=== PATIENT | female | born 1960 | race Caucasian/White ===

== ENCOUNTER 2021-02-27 08:56 | Outpatient (REF) | payer MEDICARE, MEDICAID, SELFPAY ==
--- NOTE | ~2021-02-27 | MM_ITS ---
EXAMINATION: MM SCREENING DIGITAL BREAST TOMOSYNTHESIS, BILATERAL CLINICAL INFORMATION: Screening. Asymptomatic. The lifetime risk of breast cancer based on the Tyrer-Cuzick Model is 4%. COMPARISON: Mammography: 02/22/2020, 02/18/2019, 02/05/2018, 02/03/2018 TECHNIQUE: Digital breast tomosynthesis is performed in both the craniocaudal and mediolateral oblique views along with computer-aided detection (CAD). Synthesized 2D images are generated from the tomosynthesis. FINDINGS: The breasts are heterogeneously dense, which may obscure small masses (ACR BI-RADS breast composition Category c). There are no significant masses, abnormal calcifications, or other abnormalities. Breast tissue composition borders on average fibroglandular. Parenchymal pattern is similar to prior studies. There is no developing density. No significant changes. MM/MM tomosynthesis screening BI IMPRESSION: No mammographic evidence of malignancy. ASSESSMENT: BI-RADS 1: Negative RECOMMENDATION: Routine annual mammography screening. This patient's information was entered into a reminder system with a target due date for their next mammogram.
== END 2021-02-27 08:57 | disposition home or self-care (01) ==
LOC: HO.MAMMO 08:56
PROVIDERS: Visit Provider Internal Medicine
DX: Z12.31 Encounter for screening mammogram for malignant neoplasm of breast (principal)
CPT/HCPCS: 77063; 77067

== ENCOUNTER 2022-03-05 08:07 | Outpatient (REF) | payer MEDICARE, MEDICAID, SELFPAY ==
--- NOTE | ~2022-03-05 | MM_ITS ---
EXAMINATION: MM SCREENING DIGITAL BREAST TOMOSYNTHESIS, BILATERAL CLINICAL INFORMATION: Screening. Asymptomatic. The lifetime risk of breast cancer based on the Tyrer-Cuzick Model is 3%. COMPARISON: Mammography: February 27, 2021 and studies dating back to December 09, 2013 TECHNIQUE: Digital breast tomosynthesis is performed in both the craniocaudal and mediolateral oblique views along with computer-aided detection (CAD). Synthesized 2D images are generated from the tomosynthesis. FINDINGS: The breasts are heterogeneously dense, which may obscure small masses (ACR BI-RADS breast composition Category c). There are no significant masses, abnormal calcifications, or other abnormalities. MM/MM tomosynthesis screening BI IMPRESSION: No mammographic evidence of malignancy. ASSESSMENT: BI-RADS 1: Negative RECOMMENDATION: Routine annual mammography screening. This patient's information was entered into a reminder system with a target due date for their next mammogram.
== END 2022-03-05 08:08 | disposition home or self-care (01) ==
LOC: HO.MAMMO 08:07
PROVIDERS: PCP Internal Medicine; Visit Provider Internal Medicine
DX: Z12.31 Encounter for screening mammogram for malignant neoplasm of breast (principal)
CPT/HCPCS: 77063; 77067

== ENCOUNTER 2023-03-08 08:07 | Outpatient (REF) | payer MEDICARE, MEDICAID, SELFPAY | END 2023-03-08 08:08 | disposition home or self-care (01) | LOC: HO.MAMMO 08:07 | PROVIDERS: PCP Internal Medicine; Visit Provider Internal Medicine | DX: Z12.31 Encounter for screening mammogram for malignant neoplasm of breast (principal) | CPT/HCPCS: 77063; 77067 ==

== ENCOUNTER → 2023-03-08 08:15 | Outpatient (BNV) | payer MEDICARE, MEDICAID, SELFPAY | PROVIDERS: PCP Internal Medicine; Visit Provider Radiology Diagnostic Radiology | DX: Z12.31 Encounter for screening mammogram for malignant neoplasm of breast (principal) | CPT/HCPCS: 77063; 77067 ==

== ENCOUNTER 2023-06-10 16:03 | Inpatient (IN) | payer MEDICARE, MEDICAID, SELFPAY ==
--- NOTE | ~2023-06-10 | CT_ITS ---
EXAMINATION: CT ABDOMEN AND PELVIS WITHOUT AND WITH CONTRAST CLINICAL INFORMATION: Right abdominal pain with nausea and vomiting. COMPARISON: None available. TECHNIQUE: Multidetector volumetric imaging was performed of the abdomen and pelvis before and after the IV administration of 100 mL of Omnipaque 350 intravenous contrast. Sagittal and coronal reformatted images were obtained on the technologist's workstation. This CT examination was performed using dose optimization techniques as appropriate, variously including the following: *Automated exposure control *Adjustment of mA and/or kV according to patient size (this includes techniques or standardized protocols for targeted exams where dose is matched to indication/reason for exam; i.e. extremities or head) *Use of iterative reconstruction technique DLP: 745 mGy-cm FINDINGS: LUNG BASES: The lung bases are clear. Heart size is normal. LIVER, GALLBLADDER, AND BILIARY TREE: The liver is normal in size, shape, and attenuation. There is 2.3 cm right hepatic cyst at the nano hepatis. There is minimal intrahepatic ductal prominence. The CBD is prominent measuring 1 cm. The gallbladder is distended with internal septation but no radiopaque calculi seen. No wall thickening. PANCREAS: Unremarkable SPLEEN: Unremarkable ADRENAL GLANDS: Unremarkable KIDNEYS AND URETERS: The kidneys are normal in size, shape, and attenuation. No hydronephrosis, hydroureter, or calculi seen. No perinephric stranding. BLADDER: Unremarkable GASTROINTESTINAL TRACT: There is diffuse colonic diverticulosis most prominent in the sigmoid region without mural thickening or pericolic fat stranding. Appendix is not visualized. The small bowel loops are unremarkable. The stomach is distended with recently ingested fluids No free air or free fluid. ABDOMINAL WALL: No significant hernia is appreciated. LYMPH NODES: Normal VASCULAR: Unremarkable PELVIC VISCERA: Unremarkable OSSEOUS STRUCTURES: No aggressive lytic or sclerotic process CT/CT abdomen pelvis wo/w IV con IMPRESSION: Significant constipation without acute intra-abdominal process. Distended gallbladder with septation but no radiopaque calculi. Mild intrahepatic and extrahepatic ductal dilatation. Hydropic gallbladder with septation but no radiopaque calculi Fleischner guidelines were followed.
--- NOTE | ~2023-06-10 | MR_ITS ---
EXAMINATION: MR ABDOMEN WITHOUT CONTRAST CLINICAL INFORMATION: Right-sided abdominal pain, nausea, vomiting, dilated common bile duct COMPARISON: CT scan of abdomen and pelvis on 06/10/2023, ultrasound of the abdomen on 06/10/2023. TECHNIQUE: Examination was performed in a high field strength MRI scanner. Multiplanar multisequence MR imaging of the abdomen was performed without IV contrast enhancement. MR cholangiopancreatography was performed with heavily T2 weighted sequences. 3-dimensional reconstruction of image data was performed. This was performed under concurrent direct supervision and monitoring by radiologist. Maximum intensity projection images were constructed. FINDINGS: MR CHOLANGIOPANCREATOGRAPHY: Evaluation is limited by respiratory motion blurring due to inability of the patient to hold her breath. Gallbladder is markedly distended, measuring 11.6 cm in length, with small crescent-shaped gravitating filling defects. Trace pericholecystic fluid is present. Cystic duct is unremarkable. Bilateral intra hepatic bile ducts are mildly dilated. Common bile duct is mildly dilated in the distal portion measuring up to 0.8 cm in diameter, with impingement in the distal portion by a prominent medial descending duodenal diverticulum, measuring 2.7 cm in AP diameter, 3.1 cm in width, 2.2 cm in vertical height. No common bile duct filling defect could be seen. Pancreatic duct is normal in size. LIVER: The liver shows no focal lesion. The calculated hepatic fat percentage is 1.9%, compatible with normal. 2 Cystic lesions are seen in the nano hepatis which could be connected to the common hepatic duct. The more lateral cystic lesion measures 2.1 cm in AP diameter, 1.8 cm in width, 2.2 cm in vertical height, series 4 image #9, series 3 image #9. The more medial cystic lesion measures 1.1 cm in AP diameter, 2.5 cm in width, 2.1 cm in vertical height, series 4 image #10, series 3 image #9. Trace pericholecystic fluid is present. PANCREAS: No focal pancreatic lesion with abnormal signal can be seen. SPLEEN: Spleen is moderately enlarged, measuring 15.6 cm in vertical length, without focal lesion. ADRENAL: Bilateral adrenal glands are normal in shape and size. KIDNEYS: Bilateral kidneys are normal in size without focal lesion. MR/MR MRCP IMPRESSION: 1. Hydrops gallbladder with small gravitating gallstones, visualized on ultrasound examination of abdomen on 06/10/2023. Pericholecystic fluid collection is present on the current examination. There is otherwise no diagnostic imaging signs for acute cholecystitis. Clinical correlation is recommended. 2. Evaluation with MR cholangiopancreatography is markedly limited by respiratory motion blurring. 2 cystic lesions are seen at the nano hepatis which appears to be diverticula connected to the common hepatic duct. 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 3. Mildly dilated distal common bile duct is seen, possibly due to impingement by medial descending duodenal diverticulum. 4. Moderate splenomegaly is present. 5. No focal pancreatic lesion is found.
--- NOTE | ~2023-06-10 | US_ITS ---
EXAMINATION: US ABDOMEN LIMITED CLINICAL INFORMATION: Right upper quadrant pain, nausea and vomiting. COMPARISON: CT abdomen and pelvis dated 06/10/2023; abdominal ultrasound dated 08/19/2008. TECHNIQUE: Real-time imaging of the right upper quadrant abdominal viscera. FINDINGS: PANCREAS: Normal. LIVER: The liver is normal in size. The liver contour is normal. Parenchymal echogenicity is normal. Within the right hepatic lobe, a 1.8 cm benign simple cyst is seen, for which no imaging follow-up is recommended. No focal hepatic solid lesion. There is no intrahepatic biliary duct dilatation seen. GALLBLADDER: Mildly hydropic, with a longitudinal span of 11.8 cm. There are small gallstones, without sludge, polyps, wall thickening or pericholecystic fluid. COMMON BILE DUCT: Mildly increased in caliber, measuring 0.8 cm in maximal diameter. RIGHT KIDNEY: Normal. No hydronephrosis. No renal calculi or focal parenchymal lesions. The kidney measures 9.5 cm in maximum dimension. FREE FLUID: None. US/US abdomen limited IMPRESSION: The gallbladder is mildly hydropic, and there is dilatation of the common bile duct. There is cholelithiasis. No definite choledocholith or pancreatic mass is seen on this examination or on the accompanying CT evaluation. Of note, the accompanying CT evaluation does show mild intrahepatic biliary duct dilatation. A recently passed gallstone is a diagnostic possibility. Consider further evaluation with abdominal MRI/MRCP or nuclear HIDA imaging, if clinically indicated.
--- NOTE | 2023-06-10 16:08 | ED.ABDPAIN ---
HPI - Abdominal Pain General Chief Complaint: Abdominal Pain Stated Complaint: severe abd pain Time Seen by Provider: 06/10/23 16:50 History of Present Illness HPI narrative: Patient is a 63-year-old female who presents emergency department for evaluation of abdominal pain. She reports approximately 5 hours prior to arrival she consumed a salad and a breakfast sandwich. Approximately 1 hour later she developed pain to the right upper abdomen with nausea and vomiting. She states that she has experienced similar episodes of pain after eating in the past which she has never had evaluation for, but has never experienced pain this severe nor associated vomiting. Pain radiates into the right back. She does endorse issues with constipation, she does not recall the date of her last bowel movement, she reports passing a very small amount of stool today after taking milk of magnesia. She denies fevers, chills, chest pain, shortness of breath, difficulty breathing, genitourinary symptoms, hematochezia, melena. Related Data Allergies Allergy/AdvReac Type Severity Reaction Status Date / Time thiopental [SODIUM PENTOTHAL] Allergy Severe ORAL HIVES Verified 06/10/23 16:41 Penicillins [PENICILLINS] Allergy Intermediate HIVES Verified 06/10/23 16:41 From DEMEROL Allergy Severe ORAL HIVES Uncoded 06/10/23 16:41 From VISTARIL Allergy Severe ORAL HIVES Uncoded 06/10/23 16:41 Review of Systems Review of Systems Yes all other systems are reviewed and are negative [facility] Past Medical History Attestation statement: The following information was validated with the patient. Source: old records reviewed Medical History RUQ abdominal pain Social History Alcohol intake: current Alcohol intake frequency: a few times a week Patient Tobacco Use Status: Never used Tobacco Smoked in Last 30 Days: No Use of substances other than those prescribed or required for medical reasons: No Advance Directives: No Advance Directives Information Provided: Yes Nutrition Risks: No Nutritional Risk Patient : No Physical Exam ED Vital Signs: Vital Signs - 24 hr 06/10/23 16:09 06/10/23 16:39 06/10/23 18:05 Temperature 97.8 F 97.3 F Pulse Rate 61 60 73 Respiratory Rate 18 20 16 Blood Pressure 136/103 H 128/75 121/53 L Pulse Oximetry 95 98 100 Oxygen Delivery Method Room Air Room Air Room Air 06/10/23 19:25 06/10/23 21:40 Temperature 97.9 F 98.0 F Pulse Rate 69 65 Respiratory Rate 16 18 Blood Pressure 129/61 132/66 Pulse Oximetry 98 98 Oxygen Delivery Method Room Air Room Air BMI result Body Mass Index 23.4 Appearance: Alert.?Oriented to person, place and time. No acute distress.?Normal affect. Eyes: Pupils equal, round and reactive to light.? ENT: Pharynx normal.?? Neck: Normal inspection.? Neck supple.?? CVS: Heart sounds normal. Normal heart rate and rhythm.? Pulses normal.?? Respiratory: No respiratory distress.? Lung sounds clear to auscultation bilaterally?? Abdomen: without rigidity or distension, she is however guarding, notable tenderness diffusely to the right side and epigastrium. No rebound tenderness. Positive CVA tenderness. Skin: Skin warm and dry.? Normal skin color.? Normal skin turgor.?? Extremities: No lower extremity edema.? No calf ttp? Neuro: Moves all extremities spontaneously. Sensation intact bilaterally. CN II-XII intact. No focal neuro deficits. Ambulates with normal steady gait. Course Course Course Narrative: This is a rapid medical exam. Deferred additional HPI, ROS, PE to primary provider. 63 yo female with history of asthma here with right upper abdomen pain/vomiting after eating a salad/breakfast sandwich. Will obtain labs, UA, EKG +hypertensive, quite uncomfortable Charge nurse notified patient needs bed Reevaluation(s) Reevaluation #1: CT concerning for gallbladder distension without radiopaque calculi, consulted general surgery Dr. Gordon, will obtain ultrasound for further imaging. CT also revealing significant constipation without evidence of obstruction, patient to receive MiraLax Reevaluation #2: Ultrasound reveals mildly hydropic gallbladder, dilation of the CBD, a cholelithiasis, mild intrahepatic biliary duct dilation. Reviewed this case with surgeon, Dr. Gordon, she continues to have pain and discomfort, accepted for admission to surgery service. Medical Decision Making Medical Decision Making MDM Narrative: Patient is a 63 old female with past medical history of asthma, GERD, hypothyroidism, depression presenting to emergency department for evaluation of abdominal pain as per HPI. At the time my initial examination she appears significantly uncomfortable. Abdominal examination is without rigidity or distension, she is however guarding, notable tenderness diffusely to the right side and epigastrium, and R CVAT. No rebound tenderness. No CVA tenderness. Will obtain CBC to evaluate for leukocytosis/ anemia, CMP and lipase to evaluate for abnormal electrolytes /abnormal renal function/ abnormal hepatic/biliary function, CT AP and Urinalysis. Differential Diagnosis Differential Diagnoses: The differential diagnosis associated with the presentation includes (Cholecystitis, cholelithiasis, pancreatitis, gastritis, PUD, ureteral calculi, hydronephrosis, appendicitis, ovarian cyst, pyelonephritis/UTI) Admission/Observation Consideration of admission/observation: Escalation of care including admission/observation considered (See narrative above and course narrative for further details) Consult Healthcare Provider Management of the patient was discussed with: [employer] Therapist (Dr. Gordon, general surgery) Lab Data MDM Lab Attestation statement: I reviewed the patient's lab results. CBC is without leukocytosis anemia. Elevated LFTs with T bili 1.6, AST/ALT 67/35, lipase within normal limits. High sensitive troponin not detectable. 06/10/23 16:30 06/10/23 16:30 Labs: Lab Results 06/10/23 06/10/23 Range/Units 16:30 19:47 WBC 10.3 (4.8-10.8) X10*3/uL RBC 4.88 (4.20-5.50) X10*6/uL Hgb 14.0 (12.0-16.0) g/dl Hct 42.0 (37.0-47.0) % MCV 86.1 (80.0-98.0) fL MCH 28.7 (27.0-33.0) pg MCHC 33.3 (31.0-35.0) g/dl RDW 14.1 (11.0-16.0) % Plt Count 173 (160-400) X10*3/uL MPV 10.4 (9.4-12.3) fL Immature Gran % (Auto) 0.5 H (0.0-0.4) % Neut % (Auto) 81.9 H (45-73) % Lymph % (Auto) 10.4 L (20-40) % [place] % (Auto) 6.9 (2-11) % Eos % (Auto) 0.0 (0-4) % Baso % (Auto) 0.3 (0-2) % Lymph # (Auto) 1.1 L (1.2-4.9) X10*3/uL [place] # (Auto) 0.7 (0.1-1.2) X10*3/uL Eos # (Auto) 0.0 (0.0-0.4) X10*3/uL Baso # (Auto) 0.0 (0.0-0.2) X10*3/uL Abs Immat Gran (auto) 0.05 H (0.00-0.03) X10*3/uL Absolute Neuts (auto) 8.4 H (2.0-8.3) x10*3/uL Absolute Nucleated RBC 0.000 (0.0-0.012) X10*3/uL Nucleated RBC % (auto) 0.0 (0.0-0.2) /100WBC Sodium 142 (135-145) mmol/L Potassium 3.9 (3.3-5.1) mmol/L Chloride 105 (96-108) mmol/L Carbon Dioxide 26 (22-29) mmol/L Anion Gap 15 (12-20) BUN 25 H (9-16) mg/dL Creatinine 0.79 (0.5-1.4) mg/dL Estim Creat Clear Calc 51.6 Estimated GFR > 60 Random Glucose 147 H (60-115) mg/dL Lactic Acid 1.1 (0.5-2.0) mmol/L Calcium 10.3 H (8.4-10.2) mg/dL Total Bilirubin 1.6 H (0.0-1.0) mg/dL Direct Bilirubin 0.7 H (0.0-0.5) mg/dL AST 67 H (5-31) U/L ALT 35 H (0-31) U/L Alkaline Phosphatase 109 (39-117) U/L Troponin I High Sens < 2.7 (<3.5-17.0) ng/L Total Protein 7.3 (6.5-8.0) g/dL Albumin 4.9 (3.5-5.0) g/dL Lipase 23 (8-78) U/L Urine Color Yellow Urine Appearance Clear Urine pH 8.0 (5.0-9.0) Ur Specific [place] >= 1.030 H (1.005-1.025) Urine Protein Trace (Neg-Trace) mg/dL Urine Glucose (UA) Negative (Negative) mg/dL Urine Ketones Negative (Negative) mg/dL Urine Blood Negative (Negative) Urine Nitrite Negative (Negative) Ur Leukocyte Esterase Negative (Negative) Independent Interpretation I performed an independent interpretation of an: EKG and CT Scan Interpretation: Rate:50 Rhythm:? Sinus bradycardia Normal P waves.? Normal CYRUS.?? Normal QRS complex.?? ST T wave :??No ST elevation, no ST depression, T-wave inversion V1-V3 qTC: 444 prior studies:? No prior available for review The study has been interpreted contemporaneously by me. Radiology Impression Discussion of test interpretation with radiology: I have reviewed the radiologist's reading. Radiologist Impression: CT/CT abdomen pelvis wo/w IV con IMPRESSION: Significant constipation without acute intra-abdominal process. Distended gallbladder with septation but no radiopaque calculi. Mild intrahepatic and extrahepatic ductal dilatation. Hydropic gallbladder with septation but no radiopaque calculi Independent Historian Clinical information obtained from an independent historian. History obtained from or confirmed by: Spouse (Present at bedside who confirms history) Medications Administered Generic Name Dose Route Start Last Admin Trade Name Freq PRN Reason Stop Dose Admin Sodium Chloride 1,000 mls @ 100 mls/hr 06/10/23 23:30 06/11/23 01:18 Ns IVCONT 100 mls/hr .Q10H GABRIELLE Administration Levofloxacin 500 mg in 100 mls @ 100 mls/hr 06/11/23 00:30 06/11/23 01:19 Levaquin IV Infused BEDTIME GABRIELLE Infusion Metronidazole 500 mg in 100 mls @ 100 mls/hr 06/11/23 00:00 06/11/23 01:18 Flagyl IV Infused Q8H GABRIELLE Infusion Sodium Chloride 3 ml 06/11/23 00:00 06/11/23 00:15 0.9 % Sodium Chloride Flush 3 Ml Syringe IVFLUSH 3 ml QSHIFT GABRIELLE Administration Discontinued Medications Generic Name Dose Route Start Last Admin Trade Name Freq PRN Reason Stop Dose Admin Sodium Chloride 1,000 mls @ 999 mls/hr 06/10/23 17:30 06/10/23 18:40 Ns IV 06/10/23 18:30 Infused .Q1H1M GABRIELLE Infusion Ceftriaxone Sodium 2 gm/ 50 mls @ 100 mls/hr 06/10/23 22:05 06/10/23 22:46 Sodium Chloride IV 06/10/23 22:34 Infused ONCE ONE Infusion Ketorolac Tromethamine 30 mg 06/10/23 17:18 06/10/23 17:35 Ketorolac Tromethamine 30 Mg/Ml Vial IVPUSH 06/10/23 17:19 30 mg ONCE ONE Administration Ondansetron HCl 4 mg 06/10/23 17:18 06/10/23 17:35 Ondansetron Hcl 4 Mg/2 Ml Vial IVPUSH 06/10/23 17:19 4 mg ONCE ONE Administration Polyethylene Glycol 17 gm 06/10/23 19:47 06/10/23 19:51 Polyethylene Glycol 3350 17 Gm Powd.Pack PO 06/10/23 19:48 17 gm ONCE ONE Administration Discharge Plan Discharge Clinical Impression: Right upper quadrant abdominal pain Patient Disposition: Admitted As Inpatient Interventions: Admission Worksheet (ED) Last Done: 06/11/23 01:09 Discharge Date/Time: 06/11/23 00:40
[2023-06-10 16:09] VITALS: BP 136/103; PULSE 61; RESP 18; TEMP 36.6; O2SAT 95; BMI 23.4
--- NOTE | 2023-06-10 16:10 | ECG_ITS ---
Test Reason : UPPER ABDOMINAL PAIN Blood Pressure : / mmHG Vent. Rate : 050 BPM Atrial Rate : 050 BPM P-R Int : 124 ms QRS Dur : 080 ms QT Int : 488 ms P-R-T Axes : 079 064 074 degrees QTc Int : 444 ms Sinus bradycardia RSR' or QR pattern in V1 suggests right ventricular conduction delay Nonspecific T wave abnormality Anterior leads Abnormal ECG When compared with ECG of 22-MAY-2010 12:13, Vent. rate has decreased BY 48 BPM Nonspecific T wave abnormality no longer evident in Inferior leads T wave inversion less evident in Anterior leads Referred By: Sara Mauro Electronically Signed By:PIETRO TOVAR MD
--- NOTE | 2023-06-10 16:22 | MHC.EDTECH ---
unable to obtain EKG in triage. patient in a lot of pain unable to sit still.
[2023-06-10 16:34] LABS: MANUAL DIFF FLAG NO
[2023-06-10 16:39] VITALS: BP 128/75; PULSE 60; RESP 20; TEMP 36.3; O2SAT 98
[2023-06-10 16:42] LABS: Basophils Percent Auto 0.3 % (0-2); Imm Gran Abs Auto 0.05 X10*3/uL (0.00-0.03); Imm Gran Pct Auto 0.5 % (0.0-0.4); Lymphocytes Absolute Auto 1.1 X10*3/uL (1.2-4.9); Lymphocytes Percent Auto 10.4 % (20-40); Mean Corpuscular HGB Conc 33.3 g/dl (31.0-35.0); Mean Corpuscular Hemoglobin 28.7 pg (27.0-33.0); Mean Corpuscular Volume 86.1 fL (80.0-98.0); Mean Platelet Volume 10.4 fL (9.4-12.3); Monocytes Absolute Auto 0.7 X10*3/uL (0.1-1.2); Monocytes Percent Auto 6.9 % (2-11); Neutrophils Absolute Auto 8.4 x10*3/uL (2.0-8.3); Neutrophils Percent Auto 81.9 % (45-73); Platelet Count 173 X10*3/uL (160-400); Red Blood Count 4.88 X10*6/uL (4.20-5.50); Red Cell Distribution Width 14.1 % (11.0-16.0); White Blood Count 10.3 X10*3/uL (4.8-10.8)
[2023-06-10 16:46] LABS: Lactic Acid 1.1 mmol/L (0.5-2.0)
[2023-06-10 16:51] LABS: Alanine Aminotransferase 35 U/L (0-31); Albumin Level 4.9 g/dL (3.5-5.0); Alkaline Phosphatase 109 U/L (39-117); Anion Gap 15 (12-20); Aspartate Amino Transferase 67 U/L (5-31); Bilirubin Direct 0.7 mg/dL (0.0-0.5); Bilirubin Total 1.6 mg/dL (0.0-1.0); Blood Urea Nitrogen 25 mg/dL (9-16); Calcium 10.3 mg/dL (8.4-10.2); Carbon Dioxide 26 mmol/L (22-29); Chloride 105 mmol/L (96-108); Creatinine Clr Calc Pharmacy 51.6; Estimated Glomerular Filt Rate > 60; Glucose Random 147 mg/dL (60-115); Lipase 23 U/L (8-78); Potassium 3.9 mmol/L (3.3-5.1); Sodium 142 mmol/L (135-145); Total Protein 7.3 g/dL (6.5-8.0)
[2023-06-10 17:00] LABS: Troponin-I High Sensitivity < 2.7 ng/L (<3.5-17.0)
[2023-06-10] MEDS: Ketorolac Tromethamine 30 MG/ML VIAL IVPUSH (17:35)
[2023-06-10] MEDS: ondansetron HCL 4 MG/2 ML VIAL IVPUSH (17:35)
[2023-06-10] MEDS: 0.9 % Sodium Chloride 1,000 ML 999 ML IV (17:36)
--- NOTE | 2023-06-10 17:36 | PC.NURSE ---
20gIV placed in the left AC w/o difficulty - medications administered per provider order. pt awaiting CT scan at this time. bedside for support. call milton placed within reach.
[2023-06-10 18:05] VITALS: BP 121/53; PULSE 73; RESP 16; O2SAT 100
--- NOTE | 2023-06-10 18:18 | PC.NURSE ---
pt to CT at this time.
--- NOTE | 2023-06-10 18:40 | PC.NURSE ---
pt returned from CT at this time. pt verbalizing pain level decreased post medication administration. pt no longer tearful/agitated. resting comfortable in no apparent distress. respirations remain even and unlabored.
[2023-06-10 19:25] VITALS: BP 129/61; PULSE 69; RESP 16; TEMP 36.6; O2SAT 98
--- NOTE | 2023-06-10 19:42 | MHC.EDTECH ---
This tech assumed care of patient at 1900, hourly rounds completed. Patient ambulated to bathroom with a steady gait,urine sample obtained and sent to lab.
--- NOTE | 2023-06-10 19:49 | MHC.EDTECH ---
Belonging list completed and copy placed in chart
[2023-06-10] MEDS: polyethylene glycoL 3350 17 GM POWD.PACK PO (19:51)
[2023-06-10 19:57] LABS: Appearance Urine Clear; Color Urine Yellow; Glucose Urine UA Negative (Negative); Leukocyte Esterase Urine Negative (Negative); Nitrite Urine Negative (Negative); Specific Gravity - Urine >= 1.030 (1.005-1.025); Urine Blood Negative (Negative); Urine Ketones Negative (Negative); Urine Protein Trace mg/dL (Neg-Trace)
--- NOTE | 2023-06-10 19:57 | PC.NURSE ---
medication administered per provider order.
[2023-06-10 21:40] VITALS: BP 132/66; PULSE 65; RESP 18; TEMP 36.7; O2SAT 98
--- NOTE | 2023-06-10 21:41 | MHC.EDTECH ---
Hourly rounds and vitals completed patient is resting comfortably at this time and call milton at bedside
[2023-06-10] MEDS: cefTRIAXone sodium 2 GM in 0.9 % Sodium Chloride 50 ML IV (22:16)
--- NOTE | 2023-06-10 22:18 | PC.NURSE ---
medication administered per provider order. resting comfortably in no apparent distress. pt still rating pain at a 5/10 at this time. respirations remain even and unlabored. call milton placed within reach.
--- NOTE | 2023-06-10 23:36 | PM.HPGS ---
History of Present Illness History of Present Illness Date of Service: 06/14/23 Chief complaint: RUQ pain Narrative: Ailyn Gill is a 63 year old female who was brought to the ED for sudden, acute and severe right sided abdominal pain starting about 3 hours prior to presentation. She also describes having nasuea and vomitting. She did respond well to IV pain meds although says she still had some pain. She stated that she may have had similar pain about a month ago but that was not nearly as severe as this episode. She says she has a history of hysterectomy in the distant past. Review of Systems Constitutional: Constitutional: Denies chills and Denies fever(s) Cardiovascular: Cardiovascular: Denies chest pain, Denies dyspnea and Denies dyspnea on exertion Respiratory: Respiratory: Denies cough, Denies dyspnea and Denies dyspnea on exertion Gastrointestinal: Gastrointestinal: Denies hematochezia and Denies change in bowel habits Genitourinary: Genitourinary: Denies hematuria Musculoskeletal: Musculoskeletal: Denies back pain and Denies limited range of motion Neurologic: Denies focal weakness and Denies convulsions Psychiatric: Psychiatric: Denies depression and Denies mood swings [facility]LY [facility], [facility] Past Medical History Medical History Thyroid disease Asthma RUQ abdominal pain Surgical History Surgical History (Updated 06/13/23 @ 07:39 by Nora Espinosa PA-C) History of hysterectomy Social History Social History Household Members: Other Housing: House Alcohol intake: current Alcohol intake frequency: holidays/special occasions only Comment: NOT INDICATED Patient Tobacco Use Status: Never used Tobacco service: No Meds Allergies Allergy/AdvReac Type Severity Reaction Status Date / Time thiopental [SODIUM PENTOTHAL] Allergy Severe ORAL HIVES Verified 06/10/23 16:41 Penicillins [PENICILLINS] Allergy Intermediate HIVES Verified 06/10/23 16:41 From DEMEROL Allergy Severe ORAL HIVES Uncoded 06/10/23 16:41 From VISTARIL Allergy Severe ORAL HIVES Uncoded 06/10/23 16:41 Active Medications: Current Medications Sodium Chloride (Ns) 1,000 mls @ 100 mls/hr IVCONT .Q10H GABRIELLE Levofloxacin (Levaquin) 500 mg in 100 mls @ 100 mls/hr IV Q24H GABRIELLE Metronidazole (Flagyl) 500 mg in 100 mls @ 100 mls/hr IV Q8H GABRIELLE Morphine Sulfate (Morphine Sulfate 4 Mg/Ml Cartridge) 4 mg IVPUSH Q4H PRN; Protocol PRN Reason: Pain, Severe (Pain Scale 7-10) Ondansetron HCl (Ondansetron Hcl 4 Mg/2 Ml Vial) 4 mg IVPUSH Q8H PRN PRN Reason: Nausea and Vomiting Sodium Chloride (0.9 % Sodium Chloride Flush 3 Ml Syringe) 3 ml IVFLUSH QSHIFT [facility] Home Medications Medication Instructions Recorded Confirmed Last Taken Type benralizumab 30 mg/mL subcutaneous 30 mg subcut Q8W 06/11/23 06/11/23 06/03/23 History syringe (Fasenra) cetirizine 10 mg tablet 10 mg PO DAILY 06/11/23 06/11/23 06/10/23 History cromolyn 4 % eye drops 1 drp ophthalmic (eye) QID 06/11/23 06/11/23 06/10/23 History cyanocobalamin (vitamin B-12) 1,000 mcg PO DAILY 06/11/23 06/11/23 06/10/23 History 1,000 mcg tablet diclofenac sodium 75 mg 75 mg PO BID 06/11/23 06/11/23 06/10/23 History tablet,delayed release fluticasone propionate 50 2 spray intranasal BID PRN Allergy 06/11/23 06/11/23 06/10/23 History mcg/actuation nasal Symptoms spray,suspension levothyroxine 75 mcg tablet 75 mcg PO DAILY 06/11/23 06/11/23 06/10/23 History montelukast 10 mg tablet 10 mg PO BEDTIME 06/11/23 06/11/23 06/10/23 History pantoprazole 40 mg tablet,delayed 40 mg PO DAILY 06/11/23 06/11/23 06/10/23 History release sertraline 100 mg tablet 150 mg PO DAILY 06/11/23 06/11/23 06/10/23 History Physical Exam Vital Signs: Vital Signs: Last Vital Signs Temp 98.0 F 06/10/23 21:40 Pulse 65 06/10/23 21:40 Resp 18 06/10/23 21:40 BP 132/66 06/10/23 21:40 Pulse Ox 98 06/10/23 21:40 O2 Del Method Room Air 06/10/23 21:40 BMI result Body Mass Index 23.4 Const: General: comfortable and no acute distress Orientation/consciousness: patient oriented x3 Neck: Neck: Yes no lymphadenopathy Resp: Auscultation: clear to auscultation bilaterally Cardio: Rhythm: regular rhythm GI: Other: tender on the RUQ, epigastric area Palpation (GI): Soft to palpation, Tenderness to palpation present (GI) and no guarding Neuro: General: patient oriented x3 Results Results Labs: Short CBC 06/10/23 Range/Units 16:30 WBC 10.3 (4.8-10.8) X10*3/uL Hgb 14.0 (12.0-16.0) g/dl Hct 42.0 (37.0-47.0) % Plt Count 173 (160-400) X10*3/uL BMP 06/10/23 16:30 Sodium 142 Potassium 3.9 Chloride 105 Carbon Dioxide 26 BUN 25 H Creatinine 0.79 Calcium 10.3 H Liver Function 06/10/23 Range/Units 16:30 Total Bilirubin 1.6 H (0.0-1.0) mg/dL Direct Bilirubin 0.7 H (0.0-0.5) mg/dL AST 67 H (5-31) U/L ALT 35 H (0-31) U/L Alkaline Phosphatase 109 (39-117) U/L Albumin 4.9 (3.5-5.0) g/dL Urine 06/10/23 Range/Units 19:47 Urine Color Yellow Urine Appearance Clear Urine pH 8.0 (5.0-9.0) Ur Specific [place] >= 1.030 H (1.005-1.025) Urine Protein Trace (Neg-Trace) mg/dL Urine Glucose (UA) Negative (Negative) mg/dL Assessment and Plan (1) RUQ abdominal pain: Status: Acute She has had sudden onset of right upper quadrant pain. I have reviewed her imaging studies and the gallbladder appears distended although with gallstones. Main differential is calculous cholecystitis. Her CBD and the hepatobiliary tree however appear dilated and her bilirubin is slightly elevated. I am going to order for an MRCP to rule out CBD stones. I will trend her LFTs as well. She has an otherwise benign exam although still has pain. There is no other acute intraabdominal process seen on her CT scan. She and her are comfortable with the plan. Quality Stroke Does the patient have a stroke diagnosis?: No VTE Prior VTE?: No VTE Risk Level:: Medical - moderate - high VTE Device Contraindication: N/A - Device Ordered VTE Drug Contraindication: N/A - Med Ordered Procedures Date of Service Date of Service: 06/14/23
[2023-06-11 00:03] VITALS: BP 117/69; PULSE 71; RESP 16; TEMP 36.7; O2SAT 99
--- NOTE | 2023-06-11 00:04 | MHC.EDTECH ---
Hourly rounds and vitals completed,patient resting comfortably at this time and warm blanket given,call milton at reach
[2023-06-11] MEDS: metroNIDAZOLE/NS 500 MG/100 ML PIGGYBACK 100 MG IV ×4 (00:15→23:05)
[2023-06-11] MEDS: 0.9 % Sodium Chloride Flush 3 ML SYRINGE IVFLUSH (00:15)
[2023-06-11] MEDS: levoFLOXacin/D5W 500 MG/100 ML PIGGYBACK 100 MG IV ×2 (00:16→20:26)
[2023-06-11] MEDS: 0.9 % Sodium Chloride 1,000 ML 100 ML IVCONT ×3 (01:18→22:59)
[2023-06-11 01:49] VITALS: BMI 23.4
[2023-06-11 03:19] VITALS: BP 127/68; PULSE 62; RESP 18; TEMP 36.2; O2SAT 96
[2023-06-11 08:00] VITALS: BP 127/63; PULSE 77; RESP 18; TEMP 36.2; O2SAT 95
--- NOTE | 2023-06-11 08:09 | PHA.MEDREC ---
Pharmacy Consult ? Medication Reconciliation Pharmacy has completed the medication reconciliation.
--- NOTE | 2023-06-11 08:28 | P.PNGS_ITS ---
Subjective Subjective Date of Service: 06/12/23 Interval history: still with some pain on the right upper quadrant but much better compared to last night Denies nausea or vomiting says that she was able to sleep no events reported Physical Exam 2 Vital Signs: Vital Signs: Last Vital Signs Temp 97.2 F 06/11/23 08:00 Pulse 77 06/11/23 08:00 Resp 18 06/11/23 08:00 BP 127/63 06/11/23 08:00 Pulse Ox 95 06/11/23 08:00 O2 Del Method Room Air 06/11/23 08:00 BMI result Body Mass Index 23.4 Const: General: comfortable and no acute distress Resp: Effort & Inspection: normal respiratory effort Cardio: Rate: regular rate GI: Other: some tenderness on the right upper quadrant and epigastric area Palpation (GI): Soft to palpation, not firm and no guarding Objective Data Active Medications Sodium Chloride (Ns) 1,000 mls @ 100 mls/hr IVCONT .Q10H COUNT INCLUDES THE [facility] Last Admin: 06/11/23 01:18 Dose: 100 mls/hr Documented By: MARNI Comments: new addmit Levofloxacin (Levaquin) 500 mg in 100 mls @ 100 mls/hr IV BEDTIME COUNT INCLUDES THE [facility] Last Infusion: 06/11/23 01:19 Dose: Infused Documented By: MARNI Metronidazole (Flagyl) 500 mg in 100 mls @ 100 mls/hr IV Q8H COUNT INCLUDES THE [facility] Last Admin: 06/11/23 07:36 Dose: 100 mls/hr Documented By: SUZANNE Morphine Sulfate (Morphine Sulfate 4 Mg/Ml Cartridge) 3 mg IVPUSH Q3H PRN; Protocol PRN Reason: Pain, Severe (Pain Scale 7-10) Ondansetron HCl (Ondansetron Hcl 4 Mg/2 Ml Vial) 4 mg IVPUSH Q8H PRN PRN Reason: Nausea and Vomiting Sodium Chloride (0.9 % Sodium Chloride Flush 3 Ml Syringe) 3 ml IVFLUSH QSHIFT COUNT INCLUDES THE [facility] Last Admin: 06/11/23 07:37 Dose: Not Given Documented By: SUZANNE Non-Admin Reason: IV Running Labs 06/11/23 08:42 06/11/23 08:42 Labs: Laboratory Results - last 24 hr 06/10/23 06/10/23 16:30 19:47 MCV 86.1 MCH 28.7 MCHC 33.3 RDW 14.1 Plt Count 173 MPV 10.4 Immature Gran % (Auto) 0.5 H Neut % (Auto) 81.9 H Lymph % (Auto) 10.4 L [place] % (Auto) 6.9 Eos % (Auto) 0.0 Baso % (Auto) 0.3 Lymph # (Auto) 1.1 L [place] # (Auto) 0.7 Eos # (Auto) 0.0 Baso # (Auto) 0.0 Abs Immat Gran (auto) 0.05 H Absolute Neuts (auto) 8.4 H Absolute Nucleated RBC 0.000 Nucleated RBC % (auto) 0.0 Anion Gap 15 Estim Creat Clear Calc 51.6 Estimated GFR > 60 Random Glucose 147 H Lactic Acid 1.1 Calcium 10.3 H Total Bilirubin 1.6 H Direct Bilirubin 0.7 H AST 67 H ALT 35 H Alkaline Phosphatase 109 Total Protein 7.3 Albumin 4.9 Lipase 23 Urine Color Yellow Urine Appearance Clear Urine pH 8.0 Ur Specific [place] >= 1.030 H Urine Protein Trace Urine Glucose (UA) Negative Urine Ketones Negative Urine Blood Negative Urine Nitrite Negative Ur Leukocyte Esterase Negative Procedures Date of Service Date of Service: 06/12/23 Progress Note: A&P Assessment and plan (1) RUQ abdominal pain: Status: Acute Assessment and Plan: no gallstones on imaging but with dilated hepatobiliary tree distended gallbladder but no significant inflammatory changes labs pending MRCP today continue antibiotics for now she looks well feels much better at this time although with some pain still Time Spent With Patient Time: Total time managing care of this patient today ____ minutes. Quality Stroke Does the patient have a stroke diagnosis?: No VTE Prior VTE?: No VTE Risk Level:: Medical - moderate - high VTE Device Contraindication: N/A - Device Ordered VTE Drug Contraindication: N/A - Med Ordered
[2023-06-11 08:48] LABS: MANUAL DIFF FLAG NO
[2023-06-11 08:57] LABS: Basophils Percent Auto 0.3 % (0-2); Hematocrit 36.2 % (37.0-47.0); Hemoglobin 11.8 g/dl (12.0-16.0); Imm Gran Abs Auto 0.01 X10*3/uL (0.00-0.03); Imm Gran Pct Auto 0.3 % (0.0-0.4); Lymphocytes Absolute Auto 0.4 X10*3/uL (1.2-4.9); Lymphocytes Percent Auto 11.7 % (20-40); Mean Corpuscular HGB Conc 32.6 g/dl (31.0-35.0); Mean Corpuscular Hemoglobin 28.2 pg (27.0-33.0); Mean Corpuscular Volume 86.6 fL (80.0-98.0); Mean Platelet Volume 9.8 fL (9.4-12.3); Monocytes Absolute Auto 0.3 X10*3/uL (0.1-1.2); Monocytes Percent Auto 9.5 % (2-11); Neutrophils Absolute Auto 2.5 x10*3/uL (2.0-8.3); Neutrophils Percent Auto 78.2 % (45-73); Platelet Count 102 X10*3/uL (160-400); Red Blood Count 4.18 X10*6/uL (4.20-5.50); Red Cell Distribution Width 14.2 % (11.0-16.0); White Blood Count 3.2 X10*3/uL (4.8-10.8)
[2023-06-11 09:52] LABS: Alanine Aminotransferase 749 U/L (0-31); Alkaline Phosphatase 224 U/L (39-117); Anion Gap 10 (12-20); Aspartate Amino Transferase 675 U/L (5-31); Bilirubin Direct 0.4 mg/dL (0.0-0.5); Bilirubin Total 1.1 mg/dL (0.0-1.0); Blood Urea Nitrogen 18 mg/dL (9-16); Calcium 9.1 mg/dL (8.4-10.2); Carbon Dioxide 23 mmol/L (22-29); Chloride 112 mmol/L (96-108); Creatinine Clr Calc Pharmacy 59.2; Estimated Glomerular Filt Rate > 60; Glucose Random 102 mg/dL (60-115); Potassium 4.2 mmol/L (3.3-5.1); Sodium 141 mmol/L (135-145); Total Protein 6.1 g/dL (6.5-8.0)
[2023-06-11] MEDS: Levothyroxine Sodium 75 MCG TABLET PO (11:32)
--- NOTE | 2023-06-11 13:03 | PC.NURSE ---
Requested that pt have a family member bring in her non formulary eye drops
--- NOTE | 2023-06-11 13:59 | MHC.CM.PN ---
pt lives with fiancee is independent has no servies has own ride home
--- NOTE | 2023-06-11 14:52 | PM.EVENT ---
Event Note Date of Service: 06/12/23 Event Note: States she feels better Still with right-sided pain but improved Asking if she can be discharged Abdomen remained soft with some tenderness Stable vital signs LFT show AST and ALT to be elevated, bilirubin down Possible parenchymal disease? Follow LFTs Continue antibiotics Rambo updated by phone Time Spent With Patient Time: Total time managing care of this patient today ____ minutes.
[2023-06-11 16:00] VITALS: BP 121/65; PULSE 71; RESP 18; TEMP 36.7; O2SAT 98
[2023-06-11] MEDS: Acetaminophen 325 MG TABLET 650 MG PO (16:35)
[2023-06-11] MEDS: ondansetron HCL 4 MG/2 ML VIAL IVPUSH (20:23)
[2023-06-11] MEDS: Montelukast Sodium 10 MG TABLET PO (20:25)
[2023-06-11] MEDS: Morphine Sulfate 4 MG/ML CARTRIDGE 3 MG IVPUSH (23:05)
[2023-06-11 23:46] VITALS: BP 110/57; PULSE 68; RESP 16; TEMP 36.9; O2SAT 95
[2023-06-12] VITALS (10 sets, daily range): BP systolic 130–153; BP diastolic 58–75; PULSE 69–81; RESP 12–20; TEMP 35.9–36.8; O2SAT 95–100; BMI 23.4
[2023-06-12] MEDS: Levothyroxine Sodium 75 MCG TABLET PO (06:24)
[2023-06-12] MEDS: 0.9 % Sodium Chloride 1,000 ML 100 ML IVCONT ×3 (06:26→23:51)
--- NOTE | 2023-06-12 07:33 | PM.EVENT ---
Event Note Date of Service: 06/13/23 Event Note: States she feels better but has some nausea still has some tenderness on the right upper quadrant no fever or chills abdomen soft and benign LFTs have dropped significantly MR CP shows gallstones, pericholecystic fluid, hydropic gallbladder no filling defect in the common bile duct likely to have passed a stone she does not want another episode - states that she this was severe she wants to proceed with cholecystectomy I reviewed with her the technique of laparoscopic cholecystectomy, possible open cholecystectomy I discussed the risks including but not limited to bleeding, infections, injury to other organs including bowel, liver, bile duct, retained stones, bile leak, as well as the benefits and alternatives Time Spent With Patient Time: Total time managing care of this patient today ____ minutes.
[2023-06-12 08:11] LABS: Alanine Aminotransferase 394 U/L (0-31); Albumin Level 3.9 g/dL (3.5-5.0); Alkaline Phosphatase 186 U/L (39-117); Aspartate Amino Transferase 165 U/L (5-31); Bilirubin Direct 0.2 mg/dL (0.0-0.5); Bilirubin Total 0.9 mg/dL (0.0-1.0)
--- NOTE | 2023-06-12 08:38 | HO.ANESPROP2 ---
[facility] Active Problems Active Problems: All Active Problems (Updated 06/11/23 @ 14:55 by Lanre Gordon MD) Thyroid disease (Acute) Asthma (Acute) RUQ abdominal pain (Acute) Past Medical History Medical History Thyroid disease Asthma RUQ abdominal pain Family History Family history of problems with anesthesia: No Surgical History Surgical History History of History of Problems with Anesthesia: No Social History Social History Household Members: Other Housing: House Alcohol intake: current Alcohol intake frequency: holidays/special occasions only Patient Tobacco Use Status: Never used Tobacco Smoked in Last 30 Days: No Use of substances other than those prescribed or required for medical reasons: No Currently Displaying Signs/Symptoms of Drug Intoxication Withdrawal: No Have you been hit, kicked, punched, or otherwise hurt by someone within the past year? If so, by whom?: No Do you feel safe in your current relationship?: Yes Is there a partner from a previous relationship who is making you feel unsafe now?: No Are you made to feel afraid or neglected: Yes Advance Directives: No Advance Directives Information Provided: Yes Do you have thoughts of harming others: None Do you have a plan to hurt others: No Plan Recently lost weight without trying: No Nutrition Risks: No Nutritional Risk Patient : No : No Poor oral hygiene: No service: No Meds Allergies Allergy/AdvReac Type Severity Reaction Status Date / Time thiopental [SODIUM PENTOTHAL] Allergy Severe ORAL HIVES Verified 06/10/23 16:41 Penicillins [PENICILLINS] Allergy Intermediate HIVES Verified 06/10/23 16:41 From DEMEROL Allergy Severe ORAL HIVES Uncoded 06/10/23 16:41 From VISTARIL Allergy Severe ORAL HIVES Uncoded 06/10/23 16:41 Active Medications: Current Medications Acetaminophen (Acetaminophen 325 Mg Tablet) 650 mg PO Q6H PRN PRN Reason: mild pain Last Admin: 06/11/23 16:35 Dose: 650 mg Fluticasone Propionate (Fluticasone Propionate Nasal 16 Gm [place]) 2 spray NOSTRIL-B BID PRN PRN Reason: Allergy Symptoms Sodium Chloride (Ns) 1,000 mls @ 100 mls/hr IVCONT .Q10H [facility] Last Admin: 06/12/23 06:26 Dose: 100 mls/hr Levofloxacin (Levaquin) 500 mg in 100 mls @ 100 mls/hr IV BEDTIME [facility] Last Infusion: 06/11/23 22:51 Dose: Infused Metronidazole (Flagyl) 500 mg in 100 mls @ 100 mls/hr IV Q8H [facility] Last Infusion: 06/12/23 00:16 Dose: Infused Levothyroxine Sodium (Levothyroxine Sodium 75 Mcg Tablet) 75 mcg PO DAILY@0600 [facility] Last Admin: 06/12/23 06:24 Dose: 75 mcg Montelukast Sodium (Montelukast Sodium 10 Mg Tablet) 10 mg PO BEDTIME [facility] Last Admin: 06/11/23 20:25 Dose: 10 mg Morphine Sulfate (Morphine Sulfate 4 Mg/Ml Cartridge) 3 mg IVPUSH Q3H PRN; Protocol PRN Reason: Pain, Severe (Pain Scale 7-10) Last Admin: 06/11/23 23:05 Dose: 3 mg Non-Formulary Medication (Cromolyn) 1 drop EYE-BOTH QID [facility] Omeprazole (Omeprazole 20 Mg Capsule.Dr) 20 mg PO DAILY@0630 [facility] Ondansetron HCl (Ondansetron Hcl 4 Mg/2 Ml Vial) 4 mg IVPUSH Q8H PRN PRN Reason: Nausea and Vomiting Last Admin: 06/11/23 20:23 Dose: 4 mg Sertraline HCl (Sertraline Hcl 50 Mg Tablet) 150 mg PO DAILY [facility] Sodium Chloride (0.9 % Sodium Chloride Flush 3 Ml Syringe) 3 ml IVFLUSH QSHIFT [facility] Last Admin: 06/11/23 23:56 Dose: Not Given Home Medications Medication Instructions Recorded Confirmed Last Taken Type benralizumab 30 mg/mL subcutaneous 30 mg subcut Q8W 06/11/23 06/11/23 06/03/23 History syringe (Fasenra) cetirizine 10 mg tablet 10 mg PO DAILY 06/11/23 06/11/23 06/10/23 History cromolyn 4 % eye drops 1 drp ophthalmic (eye) QID 06/11/23 06/11/23 06/10/23 History cyanocobalamin (vitamin B-12) 1,000 mcg PO DAILY 06/11/23 06/11/23 06/10/23 History 1,000 mcg tablet diclofenac sodium 75 mg 75 mg PO BID 06/11/23 06/11/23 06/10/23 History tablet,delayed release fluticasone propionate 50 2 spray intranasal BID PRN Allergy 06/11/23 06/11/23 06/10/23 History mcg/actuation nasal Symptoms spray,suspension levothyroxine 75 mcg tablet 75 mcg PO DAILY 06/11/23 06/11/23 06/10/23 History montelukast 10 mg tablet 10 mg PO BEDTIME 06/11/23 06/11/23 06/10/23 History pantoprazole 40 mg tablet,delayed 40 mg PO DAILY 06/11/23 06/11/23 06/10/23 History release sertraline 100 mg tablet 150 mg PO DAILY 06/11/23 06/11/23 06/10/23 History Exam Height,Weight and Vital Signs: Height 5 ft Weight 54.4 kg Last Vital Signs Temp 96.7 F L 06/12/23 08:03 Pulse 69 06/12/23 08:03 Resp 16 06/12/23 08:03 BP 131/66 06/12/23 08:03 Pulse Ox 96 06/12/23 08:03 O2 Del Method Room Air 06/12/23 08:03 Pertinent Lab Results Pertinent Lab Results: Laboratory Tests 06/10/23 06/10/23 06/11/23 16:30 19:47 08:42 WBC 10.3 3.2 L RBC 4.88 4.18 L Hgb 14.0 11.8 L Hct 42.0 36.2 L MCV 86.1 86.6 MCH 28.7 28.2 MCHC 33.3 32.6 RDW 14.1 14.2 Plt Count 173 102 L D MPV 10.4 9.8 Immature Gran % (Auto) 0.5 H 0.3 Neut % (Auto) 81.9 H 78.2 H Lymph % (Auto) 10.4 L 11.7 L [place] % (Auto) 6.9 9.5 Eos % (Auto) 0.0 0.0 Baso % (Auto) 0.3 0.3 Lymph # (Auto) 1.1 L 0.4 L [place] # (Auto) 0.7 0.3 Eos # (Auto) 0.0 0.0 Baso # (Auto) 0.0 0.0 Abs Immat Gran (auto) 0.05 H 0.01 Absolute Neuts (auto) 8.4 H 2.5 Absolute Nucleated RBC 0.000 0.000 Nucleated RBC % (auto) 0.0 0.0 Sodium 142 141 Potassium 3.9 4.2 Chloride 105 112 H Carbon Dioxide 26 23 Anion Gap 15 10 L BUN 25 H 18 H Creatinine 0.79 0.69 Estim Creat Clear Calc 51.6 59.2 Estimated GFR > 60 > 60 Random Glucose 147 H 102 Lactic Acid 1.1 Calcium 10.3 H 9.1 D Total Bilirubin 1.6 H 1.1 H Direct Bilirubin 0.7 H 0.4 AST 67 H 675 H ALT 35 H 749 H Alkaline Phosphatase 109 224 H Troponin I High Sens < 2.7 Total Protein 7.3 6.1 L Albumin 4.9 4.0 Lipase 23 Urine Color Yellow Urine Appearance Clear Urine pH 8.0 Ur Specific [place] >= 1.030 H Urine Protein Trace Urine Glucose (UA) Negative Urine Ketones Negative Urine Blood Negative Urine Nitrite Negative Ur Leukocyte Esterase Negative 06/12/23 07:49 WBC RBC Hgb Hct MCV MCH MCHC RDW Plt Count MPV Immature Gran % (Auto) Neut % (Auto) Lymph % (Auto) [place] % (Auto) Eos % (Auto) Baso % (Auto) Lymph # (Auto) [place] # (Auto) Eos # (Auto) Baso # (Auto) Abs Immat Gran (auto) Absolute Neuts (auto) Absolute Nucleated RBC Nucleated RBC % (auto) Sodium Potassium Chloride Carbon Dioxide Anion Gap BUN Creatinine Estim Creat Clear Calc Estimated GFR Random Glucose Lactic Acid Calcium Total Bilirubin 0.9 Direct Bilirubin 0.2 AST 165 H ALT 394 H Alkaline Phosphatase 186 H Troponin I High Sens Total Protein 6.0 L Albumin 3.9 Lipase Urine Color Urine Appearance Urine pH Ur Specific [place] Urine Protein Urine Glucose (UA) Urine Ketones Urine Blood Urine Nitrite Ur Leukocyte Esterase Airway Mallampati Class: II TM Dist: >3cm Neck ROM: Full Assessment and Plan Assessment Anesthesia Assessment: Anesthesia Plan Discussed and Chart Reviewed Final Anesthetic Review Family History of Problems with Anesthesia: No History of Problems with Anesthesia: No NPO: Yes ASA Class: II and Emergency Final Preanesthetic Review: No Changes in Pt Med Stat, Meds/Allgs Chart Reviewed, Consent Obtained/Reviewed and Anes Risks/Benef Reviewed Patient Risk: Intermediate Procedure Risk: Intermediate Anesthetic Plan Anesthetic Plan: GA Disposition: Standard PACU
[2023-06-12] MEDS: metroNIDAZOLE/NS 500 MG/100 ML PIGGYBACK 100 MG IV (08:52)
--- NOTE | 2023-06-12 11:31 | P.OP_ITS ---
Operative Note Operative Note Date of Service: 06/12/23 Narrative: Preop diagnosis: Acute calculus cholecystitis Postop diagnosis: The same Procedure: Laparoscopic cholecystectomy Surgeon: Lanre Gordon MD catering administrative assistant: BRETT Espinosa The patient is a 63-year-old female admitted because of severe right upper quadrant pain with abnormal LFTs. Her LFTs eventually trended down. Her imaging studies including or CP showed gallstones with pericholecystic fluid with no CBD stones.. Overall clinical picture suggested That the patient may have passed a stone to the common bile duct. She was copy lathe tender so clinically, she appeared to have acute cholecystitis as well. She understood the technique of laparoscopic cholecystectomy. She was aware of the risks, benefits, and alternatives. She was brought to the operating room. She was placed supine under general anesthesia via endotracheal tube. The abdomen was prepped and draped in the usual sterile fashion. A surgical time-out was done. The patient received Cefotan 2 g IV preoperatively I made a short incision on the skin in the supraumbilical margin using a blade 15. This was carried down with blunt dissection the full-thickness of the subcutaneous fat down to the fascia . The she was incised. The peritoneum was entered. Through this incision a Carley port was introduced. Pneumoperitoneum was introduced to a pressure of 15 mmHg. From here on the rest of the procedure was done under vision with a 10 mm laparoscope . With laparoscopic visualization, I proceeded to insert a 5/12 bili 40 the gastric area below the subcostal margin as well as two 5 mm ports on the subcostal margin along the anterior axillary line and the midclavicular line. Graspers were applied through these working ports. The patient was placed in a head-up and [id number] position. The gallbladder was seen and this was markedly distended and erythematous. We were able to apply grasper the fundus and this was used to retract the gallbladder cephalad. Another grasper was applied on the pouch of the gallbladder and this was used to retract the gallbladder laterally. At this point the gallbladder was be new tract in the cephalad and lateral fashion to put the area of the cystic duct on stretch. There was note of a liver cyst as well the inferior aspect of the liver. We avoided this during the dissection. I proceeded to use the [place] dissector to clear the neck of the gallbladder until I was able to identify the cystic duct. I carefully dissected the cystic duct until I was able to confirm its confluence with the neck of the gallbladder. By doing so, I was able to achieve a critical view of the hepatic cystic triangle. The cystic artery was clearly identified and there were no other structures seen in this area. With the confluence of the cystic duct with the neck of the gallbladder confirmed, I proceeded to apply clips on the cystic duct with 2 clips being applied distally. The cystic duct was then transected between clips with Endo scissors. I then applied clips on the cystic artery and this was transected between clips with Endo scissors. Two clips had been applied distally . With traction on the gallbladder away from the liver bed, I proceeded to then used the electrocautery spatula to divide across the hilum. I incised the peritoneum of the gallbladder wall and created a plane of dissection the gallbladder wall and the liver bed. I the gallbladder along this well-defined plane of dissection using a combination of blunt dissection with the tip of the spatula as well as electrocautery. I continued with this dissection all the fundus until the entire gallbladder is completely from the liver bed. The gallbladder was retrieved through an endobag through the umbilical incision . I reinserted all ports and re-insufflated. I examined all 4 quadrants and there was no other pathology or any evidence of any bowel injury seen. There were adhesions in the lower abdomen from her previous hysterectomy. There was no bile leak in the area of dissection. There was no bleeding . I therefore desufflated through the port sites. I removed all ports under vision with the laparoscope. a laparoscopic. The umbilical port was removed last. The fascia of the umbilical incision was closed with a [id number] Polysorb 0 stitch. Skin closure was achieved on all incisions using Monocryl 4- 0 subcuticular running sutures. The incisions were infiltrated with Marcaine 0.5% for postop analgesia. Dressings were applied. The procedure was completed. The patient tolerated procedure well. There were no immediate complications. Initial and final counts of sponges and instruments were correct. Estimated blood loss was about 75 cc The patient was extubated without difficulty and transferred to the recovery room with stable vital signs.
[2023-06-12] MEDS: ondansetron HCL 4 MG/2 ML VIAL IVPUSH (11:59)
[2023-06-12] MEDS: Morphine Sulfate 4 MG/ML CARTRIDGE 3 MG IVPUSH ×3 (13:05→23:50)
--- NOTE | 2023-06-12 13:36 | MHC.CM.PN ---
no dc date at this time plan remains home no servies
[2023-06-12] MEDS: oxyCODONE HCl Immed Release 5 MG TABLET PO ×2 (15:05→21:12)
--- NOTE | 2023-06-12 15:14 | PM.EVENT ---
Event Note Date of Service: 06/13/23 Event Note: Seen postop Appears to have adequate pain control Stable vital signs Abdomen soft Dressings dry Pain management I explained to her procedure done earlier I had updated her as well over the phone Hopefully she will be able to be discharged tomorrow Time Spent With Patient Time: Total time managing care of this patient today ____ minutes.
[2023-06-12] MEDS: Sertraline HCL 50 MG TABLET 150 MG PO (16:13)
[2023-06-12] MEDS: Montelukast Sodium 10 MG TABLET PO (21:12)
[2023-06-12] MEDS: 0.9 % Sodium Chloride Flush 3 ML SYRINGE IVFLUSH (21:12)
[2023-06-13] VITALS: BP 145/78; PULSE 68; RESP 18; TEMP 36.1; O2SAT 96
[2023-06-13] MEDS: Levothyroxine Sodium 75 MCG TABLET PO (04:58)
[2023-06-13] MEDS: oxyCODONE HCl Immed Release 5 MG TABLET PO ×2 (05:37→10:27)
[2023-06-13] MEDS: Omeprazole 20 MG CAPSULE.DR PO (05:37)
[2023-06-13 07:03] VITALS: BP 124/63; PULSE 68; RESP 20; TEMP 36.3; O2SAT 93
--- NOTE | 2023-06-13 07:37 | P.PNGS_ITS ---
Subjective Subjective Date of Service: 06/13/23 <Nora Espinosa PA-C - Last Filed: 06/13/23 07:40> 06/13/23 <Lanre Gordon MD - Last Filed: 06/13/23 08:54> Interval history: Feeling ok. C/o pain at umbilicus. Tolerating diet. OOB to bathroom. < Nora Espinosa PA-C - Last Filed: 06/13/23 07:40> Physical Exam 2 Vital Signs: Vital Signs: Last Vital Signs Temp 97.4 F 06/13/23 07:03 Pulse 68 06/13/23 07:03 Resp 20 06/13/23 07:03 BP 124/63 06/13/23 07:03 Pulse Ox 93 06/13/23 07:03 O2 Del Method Room Air 06/13/23 07:03 O2 Flow Rate 6 06/12/23 12:20 BMI result Body Mass Index 23.4 <Nora Espinosa PA-C - Last Filed: 06/13/23 07:40> Const: General: comfortable, no acute distress and alert <Nora Espinosa PA-C - Last Filed: 06/13/23 07:40> Orientation/consciousness: patient oriented x3 <Nora Espinosa PA-C - Last Filed: 06/13/23 07:40> Resp: Effort & Inspection: normal respiratory effort <Nora Espinosa PA-C - Last Filed: 06/13/23 07:40> GI: Inspection: No distended and Yes incision (dressings c/d/i) <Nora Espinosa PA-C - Last Filed: 06/13/23 07:40> Palpation (GI): Soft to palpation, Tenderness to palpation present (GI) (mild incisional), no guarding and not rigid <Nora Espinosa PA-C - Last Filed: 06/13/23 07:40> Percussion: Yes normal to percussion <Nora Espinosa PA-C - Last Filed: 06/13/23 07:40> Skin: General skin exam: no rashes or lesions noted <Nora Espinosa PA-C - Last Filed: 06/13/23 07:40> Neuro: General: patient oriented x3 and moves all extremities <Nora Espinosa PA-C - Last Filed: 06/13/23 07:40> Objective Data Active Medications Acetaminophen (Acetaminophen 325 Mg Tablet) 650 mg PO Q6H PRN PRN Reason: mild pain Last Admin: 06/11/23 16:35 Dose: 650 mg Documented By: SUZANNE Fluticasone Propionate (Fluticasone Propionate Nasal 16 Gm [place]) 2 spray NOSTRIL-B BID PRN PRN Reason: Allergy Symptoms Levothyroxine Sodium (Levothyroxine Sodium 75 Mcg Tablet) 75 mcg PO DAILY@0600 [facility] Last Admin: 06/13/23 04:58 Dose: 75 mcg Documented By: CONNER Montelukast Sodium (Montelukast Sodium 10 Mg Tablet) 10 mg PO BEDTIME [facility] Last Admin: 06/12/23 21:12 Dose: 10 mg Documented By: CONNER Morphine Sulfate (Morphine Sulfate 4 Mg/Ml Cartridge) 3 mg IVPUSH Q3H PRN; Protocol PRN Reason: Pain, Severe (Pain Scale 7-10) Last Admin: 06/12/23 23:50 Dose: 3 mg Documented By: CONNER Omeprazole (Omeprazole 20 Mg Capsule.Dr) 20 mg PO DAILY@0630 [facility] Last Admin: 06/13/23 05:37 Dose: 20 mg Documented By: CONNER Ondansetron HCl (Ondansetron Hcl 4 Mg/2 Ml Vial) 4 mg IVPUSH Q8H PRN PRN Reason: Nausea and Vomiting Last Admin: 06/11/23 20:23 Dose: 4 mg Documented By: MARNI Oxycodone HCl (Oxycodone Hcl Immed Release 5 Mg Tablet) 5 mg PO Q4H PRN PRN Reason: Pain, Moderate(Pain Scale 4-6) Last Admin: 06/13/23 05:37 Dose: 5 mg Documented By: CONNER Sertraline HCl (Sertraline Hcl 50 Mg Tablet) 150 mg PO DAILY [facility] Last Admin: 06/12/23 16:13 Dose: 150 mg Documented By: KEISHA Comments: pt was in OR did not receive AM dose Sodium Chloride (0.9 % Sodium Chloride Flush 3 Ml Syringe) 3 ml IVFLUSH QSHIFT [facility] Last Admin: 06/12/23 21:12 Dose: 3 ml Documented By: CONNER <Nora Espinosa PA-C - Last Filed: 06/13/23 07:40> Labs CBC & Chem 7: 06/11/23 08:42 06/11/23 08:42 <Nora Espinosa PA-C - Last Filed: 06/13/23 07:40> Labs: Laboratory Results - last 24 hr 06/12/23 07:49 Total Bilirubin 0.9 Direct Bilirubin 0.2 AST 165 H ALT 394 H Alkaline Phosphatase 186 H Total Protein 6.0 L Albumin 3.9 Blood Type O Positive Antibody Screen NEGATIVE <Nora Espinosa PA-C - Last Filed: 06/13/23 07:40> Procedures Date of Service Date of Service: 06/13/23 <Nroa Espinosa PA-C - Last Filed: 06/13/23 07:40> 06/13/23 <Lanre Gordon MD - Last Filed: 06/13/23 08:54> Progress Note: A&P Assessment and plan (1) S/P laparoscopic cholecystectomy: Status: Acute <Nora Espinosa PA-C - Last Filed: 06/13/23 07:40> Assessment and Plan: States she wants to go admits to some pain and nausea just now Abdomen soft incisions clean and dry Good vital signs will reassess later on today for possible discharge seen and examined independently <Lanre Gordon MD - Last Filed: 06/13/23 08:54> Assessment and Plan: POD #1 s/p lap aron. Doing well post op. Abd exam benign with appropriate post op tenderness, dressings c/d/i. Will reassess for likely to dc home today. Patient comfortable with plan. <Nora Espinosa PA-C - Last Filed: 06/13/23 07:40> Time Spent With Patient Time: Total time managing care of this patient today ____ minutes. <Nora Espinosa PA-C - Last Filed: 06/13/23 07:40> Quality Stroke Does the patient have a stroke diagnosis?: No <RAN Woods Last Filed: 06/13/23 07:40> VTE Prior VTE?: No <Nora Espinosa PA-C - Last Filed: 06/13/23 07:40> VTE Risk Level:: Medical - moderate - high <Nora Espinosa PA-C - Last Filed: 06/13/23 07:40> VTE Device Contraindication: N/A - Device Ordered <Nora Espinosa PA-C - Last Filed: 06/13/23 07:40> VTE Drug Contraindication: N/A - Med Ordered <Nora Espinosa PA-C - Last Filed: 06/13/23 07:40>
[2023-06-13] MEDS: ondansetron HCL 4 MG/2 ML VIAL IVPUSH (09:04)
[2023-06-13] MEDS: Sertraline HCL 50 MG TABLET 150 MG PO (09:05)
[2023-06-13] MEDS: 0.9 % Sodium Chloride Flush 3 ML SYRINGE IVFLUSH (09:06)
[2023-06-13] MEDS: Acetaminophen 325 MG TABLET 650 MG PO (10:26)
--- NOTE | 2023-06-13 13:24 | PM.EVENT ---
Event Note Date of Service: 06/13/23 Event Note: feels well has been ambulating tolerating diet well abd soft stable VS she says she is ready to go home now ffup instructions reinforced Time Spent With Patient Time: Total time managing care of this patient today ____ minutes.
--- NOTE | 2023-06-13 13:57 | HO.POSTANES ---
Post Anesthesia Evaluation Post Anesthesia Evaluation Date of Service: 06/13/23 Vital Signs: Vital Signs Temp Pulse Resp BP Pulse Ox O2 Del Method 06/13/23 07:03 97.4 F 68 20 124/63 93 Room Air Anesthesia: General Endotracheal-GETA Mental Status: Awake Pain Control: Satisfactory Nausea/Vomiting: None Hydration: Adequate Anesthesia-Related Issues: No Anes. Related Issues
--- NOTE | 2023-06-19 14:08 | PM.DS ---
DS: Providers Provider Date of Service: 06/13/23 Date of admission: 06/10/23 23:23 Primary care physician: Robert Thakur PA-C DS: Diagnosis Discharge Diagnosis (1) RUQ abdominal pain: Status: Acute (2) Acute cholecystitis due to biliary calculus: Status: Acute (3) Abnormal LFTs: Status: Acute DS: Summary Hospital Course Hospital Course: The patient was a 63-year-old female admitted because of epigastric pain with scan and ultrasound findings suggestive of cholecystitis. She had elevated LFTs as well including bilirubin. I ordered for an MRCP which did not reveal any filling defects in the common bile duct although there was some mild dilatation of the hepatic ducts. Her LFTs trended down so she underwent for laparoscopic cholecystectomy on 06/12/2023. She tolerated procedure well. She was started on clear liquids and this was advanced on the same day. She continued to tolerate this and had good pain control. Was therefore discharged on June 13, 2023. At the time of her discharge, she was tolerating regular diet. She had good pain control. She had stable vital signs. Time Attestation Discharge coordination time: Less than 30 minutes Quality: Safe Use of Opioids Does Pt have an Active Cancer Diagnosis on the Problem List?: No Quality: Stroke Does the patient have a stroke diagnosis?: No Physical Exam Vital Signs: Vital Signs: Last Vital Signs Temp 97.4 F 06/13/23 07:03 Pulse 68 06/13/23 07:03 Resp 20 06/13/23 07:03 BP 124/63 06/13/23 07:03 Pulse Ox 93 06/13/23 07:03 O2 Del Method Room Air 06/13/23 07:03 O2 Flow Rate 6 06/12/23 12:20 BMI result Body Mass Index 23.4 Const: General: comfortable and no acute distress Orientation/consciousness: patient oriented x3 Neck: Neck: Yes no lymphadenopathy Resp: Auscultation: clear to auscultation bilaterally Cardio: Rhythm: regular rhythm GI: Other: Incisions clean and dry Palpation (GI): Soft to palpation, nontender and no guarding Neuro: General: patient oriented x3 DS: Data Data Completed and Pending Completed studies during hospitalization [Text1]: Pending at discharge 06/12/23 11:23 Surgical [PTH] Routine Laboratory Results WBC 3.2 X10*3/uL (4.8-10.8) L 06/11/23 08:42 RBC 4.18 X10*6/uL (4.20-5.50) L 06/11/23 08:42 Hgb 11.8 g/dl (12.0-16.0) L 06/11/23 08:42 Hct 36.2 % (37.0-47.0) L 06/11/23 08:42 MCV 86.6 fL (80.0-98.0) 06/11/23 08:42 MCH 28.2 pg (27.0-33.0) 06/11/23 08:42 MCHC 32.6 g/dl (31.0-35.0) 06/11/23 08:42 RDW 14.2 % (11.0-16.0) 06/11/23 08:42 Plt Count 102 X10*3/uL (160-400) L D 06/11/23 08:42 MPV 9.8 fL (9.4-12.3) 06/11/23 08:42 Immature Gran % (Auto) 0.3 % (0.0-0.4) 06/11/23 08:42 Neut % (Auto) 78.2 % (45-73) H 06/11/23 08:42 Lymph % (Auto) 11.7 % (20-40) L 06/11/23 08:42 [place] % (Auto) 9.5 % (2-11) 06/11/23 08:42 Eos % (Auto) 0.0 % (0-4) 06/11/23 08:42 Baso % (Auto) 0.3 % (0-2) 06/11/23 08:42 Lymph # (Auto) 0.4 X10*3/uL (1.2-4.9) L 06/11/23 08:42 [place] # (Auto) 0.3 X10*3/uL (0.1-1.2) 06/11/23 08:42 Eos # (Auto) 0.0 X10*3/uL (0.0-0.4) 06/11/23 08:42 Baso # (Auto) 0.0 X10*3/uL (0.0-0.2) 06/11/23 08:42 Abs Immat Gran (auto) 0.01 X10*3/uL (0.00-0.03) 06/11/23 08:42 Absolute Neuts (auto) 2.5 x10*3/uL (2.0-8.3) 06/11/23 08:42 Absolute Nucleated RBC 0.000 X10*3/uL (0.0-0.012) 06/11/23 08:42 Nucleated RBC % (auto) 0.0 /100WBC (0.0-0.2) 06/11/23 08:42 Sodium 141 mmol/L (135-145) 06/11/23 08:42 Potassium 4.2 mmol/L (3.3-5.1) 06/11/23 08:42 Chloride 112 mmol/L (96-108) H 06/11/23 08:42 Carbon Dioxide 23 mmol/L (22-29) 06/11/23 08:42 Anion Gap 10 (12-20) L 06/11/23 08:42 BUN 18 mg/dL (9-16) H 06/11/23 08:42 Creatinine 0.69 mg/dL (0.5-1.4) 06/11/23 08:42 Estim Creat Clear Calc 59.2 06/11/23 08:42 Estimated GFR > 60 06/11/23 08:42 Random Glucose 102 mg/dL (60-115) 06/11/23 08:42 Lactic Acid 1.1 mmol/L (0.5-2.0) 06/10/23 16:30 Calcium 9.1 mg/dL (8.4-10.2) D 06/11/23 08:42 Total Bilirubin 0.9 mg/dL (0.0-1.0) 06/12/23 07:49 Direct Bilirubin 0.2 mg/dL (0.0-0.5) 06/12/23 07:49 AST 165 U/L (5-31) H 06/12/23 07:49 ALT 394 U/L (0-31) H 06/12/23 07:49 Alkaline Phosphatase 186 U/L (39-117) H 06/12/23 07:49 Troponin I High Sens < 2.7 ng/L (<3.5-17.0) 06/10/23 16:30 Total Protein 6.0 g/dL (6.5-8.0) L 06/12/23 07:49 Albumin 3.9 g/dL (3.5-5.0) 06/12/23 07:49 Lipase 23 U/L (8-78) 06/10/23 16:30 Urine Color Yellow 06/10/23 19:47 Urine Appearance Clear 06/10/23 19:47 Urine pH 8.0 (5.0-9.0) 06/10/23 19:47 Ur Specific [place] >= 1.030 (1.005-1.025) H 06/10/23 19:47 Urine Protein Trace mg/dL (Neg-Trace) 06/10/23 19:47 Urine Glucose (UA) Negative mg/dL (Negative) 06/10/23 19:47 Urine Ketones Negative mg/dL (Negative) 06/10/23 19:47 Urine Blood Negative (Negative) 06/10/23 19:47 Urine Nitrite Negative (Negative) 06/10/23 19:47 Ur Leukocyte Esterase Negative (Negative) 06/10/23 19:47 Blood Type O Positive 06/12/23 07:49 Antibody Screen NEGATIVE 06/12/23 07:49 Impressions Abdomen/Pelvis CT 06/10/23 18:29 IMPRESSION: Significant constipation without acute intra-abdominal process. Distended gallbladder with septation but no radiopaque calculi. Mild intrahepatic and extrahepatic ductal dilatation. Hydropic gallbladder with septation but no radiopaque calculi Fleischner guidelines were followed. Abdomen Ultrasound 06/10/23 20:11 IMPRESSION: The gallbladder is mildly hydropic, and there is dilatation of the common bile duct. There is cholelithiasis. No definite choledocholith or pancreatic mass is seen on this examination or on the accompanying CT evaluation. Of note, the accompanying CT evaluation does show mild intrahepatic biliary duct dilatation. A recently passed gallstone is a diagnostic possibility. Consider further evaluation with abdominal MRI/MRCP or nuclear HIDA imaging, if clinically indicated. Cholangiopancreatography MRI 06/11/23 08:26 IMPRESSION: 1. Hydrops gallbladder with small gravitating gallstones, visualized on ultrasound examination of abdomen on 06/10/2023. Pericholecystic fluid collection is present on the current examination. There is otherwise no diagnostic imaging signs for acute cholecystitis. Clinical correlation is recommended. 2. Evaluation with MR cholangiopancreatography is markedly limited by respiratory motion blurring. 2 cystic lesions are seen at the nano hepatis which appears to be diverticula connected to the common hepatic duct. 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 3. Mildly dilated distal common bile duct is seen, possibly due to impingement by medial descending duodenal diverticulum. 4. Moderate splenomegaly is present. 5. No focal pancreatic lesion is found. Discharge Plan Discharge Anticipated Discharge Date/Time: 06/13/23 11:42 Patient Disposition: Home, Self-Care Discharge Diagnosis: acute cholecystitis s/p laparoscopic cholecystectomy Referrals: Lanre Gordon MD [Physician] - 2 Weeks Robert Thakur PA-C [Primary Care Provider] - 1 Week Discharge Medications: New oxycodone 5 mg tablet 5 mg PO Q4H PRN (Reason: pain (scale score 7-10)) Qty: 24 0RF Rx Instructions: Partial Fill upon patient request. Continued cetirizine 10 mg tablet 10 mg PO DAILY sertraline 100 mg tablet 150 mg PO DAILY cromolyn 4 % drops 1 drp ophthalmic (eye) QID levothyroxine 75 mcg tablet 75 mcg PO DAILY pantoprazole 40 mg tablet,delayed release (DR/EC) 40 mg PO DAILY diclofenac sodium 75 mg tablet,delayed release (DR/EC) 75 mg PO BID montelukast 10 mg tablet 10 mg PO BEDTIME fluticasone propionate 50 mcg/actuation spray,suspension 2 spray intranasal BID PRN (Reason: Allergy Symptoms) Fasenra 30 mg/mL syringe 30 mg subcut Q8W cyanocobalamin (vitamin B-12) 1,000 mcg Tablet 1,000 mcg PO DAILY Discharge Orders: Discharge Order (Routine); Ordered 06/13/23 Ordered By: Lanre Gordon Diet: Low fat, low cholesterol Activity on Discharge: No heavy lifting Stand Alone Forms: Patient Portal Discharge page Activity Restrictions/Additional Instructions: If the incision area is tender, you may apply an ice pack for short intervals (No more than 20 minutes on, followed by at least 20 minutes off). Do not apply heat. Do not use creams, lotions, or topical antibiotics. These can cause infection or allergic reaction. Ok to shower 24 hours after your surgery. Remove bandaids in 2 days and replace. You have steri strips (small white cloth strips) covering your incision- these will fall off ~1 week. Follow up in office with Dr. Gordon in 2 weeks. ([phone]) No heavy lifting (>10-20lbs) or strenuous activity! Call Your Doctor If: -Your temperature exceeds 101.5? F -You experience excessive pain or swelling -You have an unexpected reaction to medication -You have excessive bleeding -You experience continued vomiting/nausea -Your incision begins to separate -Your incision shows signs of infection such as increased redness, swelling, excessive pain, drainage (light blood or clear fluid is normal) or heat Care Plan Goals: Return to baseline health and resume normal activities following recovery period. Health Concerns: acute cholecystitis transaminitis asthma Plan of Treatment: s/p laparoscopic cholecystectomy f/u in office in 2 weeks Assessment: doing well post op Discharge Date/Time: 06/13/23 14:03
== END 2023-06-13 14:03 | disposition home or self-care (01) | DRG 419 ==
LOC: HO.ED 23:35 → HO.EDOVER 23:38 → HO.S3 06-11 00:18
PROVIDERS: Nurse Practitioner Family; Admitting Provider Surgery; Emergency Provider Emergency Medicine; PCP Physician Assistant; Visit Provider Surgery
PROC: 0FT44ZZ Resection of Gallbladder, Percutaneous Endoscopic Approach (ICD-10-PCS; CPT 47562; principal; 2023-06-12 09:10)
DX: K80.00 Calculus of gallbladder with acute cholecystitis without obstruction (principal); Z79.899 Other long term (current) drug therapy
CPT/HCPCS: 36415; 74178; 74181; 76705; 80048; 80053; 80076; 81003; 82248; 83605; 83690; 84484; 85025; 86850; 86900; 86901; 88304; 93005; 99285; J0665; J0696; J1100; J1836; J1885; J1956; J2270; J2405; J2704; J3010

== ENCOUNTER → 2023-06-10 23:23 | Outpatient (BNV) | payer MEDICARE, MEDICAID, SELFPAY | PROVIDERS: Admitting Provider Surgery; Emergency Provider Emergency Medicine; PCP Physician Assistant; Visit Provider Surgery | DX: R10.11 Right upper quadrant pain (principal); K80.00 Calculus of gallbladder with acute cholecystitis without obstruction; R79.89 Other specified abnormal findings of blood chemistry | CPT/HCPCS: 47562; 99024; 99212; 99222; 99232; 99499 ==

== ENCOUNTER 2023-06-26 11:45 | Outpatient (AMB) | payer MEDICARE, MEDICAID, SELFPAY ==
--- NOTE | 2023-06-26 11:48 | MHC.OFFVIS ---
Intake Intake Visit Reasons: s/p lap cholecystectomy Intake Note: This patient presents for a post-op assessment status post laparoscopic cholecystectomy. 06/12/2023 Patient c/o; reports no complaints pertaining to surgery. Assurance Specialist Required: No Accompanied by: Self / Same As Patient Allergies thiopental [SODIUM PENTOTHAL] Allergy (Severe, Verified 06/26/23 11:52) ORAL HIVES Penicillins [PENICILLINS] Allergy (Intermediate, Verified 06/26/23 11:52) HIVES From DEMEROL Allergy (Severe, Uncoded 06/26/23 11:52) ORAL HIVES From VISTARIL Allergy (Severe, Uncoded 06/26/23 11:52) ORAL HIVES HPI s/p lap cholecystectomy HPI Details 63-year-old female here for follow-up after cholecystectomy. She underwent laparoscopic cholecystectomy as an inpatient last 06/12/2023 for acute cholecystitis. She was admitted on June 10 but had elevated bilirubin at that time. An MRCP done did not reveal any CBD stones She was discharged on postop day 1 on June 13. She continues to do well. She denies any significant complaints. [facility] Medical History Abnormal LFTs Acute cholecystitis due to biliary calculus Thyroid disease Asthma RUQ abdominal pain Surgical History History of laparoscopic cholecystectomy (~06/12/23) History of hysterectomy Social History Household Members: Other Housing: House Alcohol intake: current Alcohol intake frequency: holidays/special occasions only Comment: NOT INDICATED Patient Tobacco Use Status: Never used Tobacco service: No Review of Systems Const Denies chills and Denies fever(s) Card Denies chest pain, Denies dyspnea and Denies dyspnea on exertion Resp Denies cough, Denies dyspnea and Denies dyspnea on exertion GI Denies hematochezia and Denies change in bowel habits Denies hematuria Musc Denies back pain and Denies limited range of motion Neuro Denies focal weakness and Denies convulsions Psych Denies depression and Denies mood swings Physical Exam Const General: comfortable and no acute distress Eyes Sclerae: sclerae normal GI Other: All incisions are well healed Palpation (GI): Soft to palpation, not firm and nontender Assessment & Plan Assessment & Plan (1) Acute cholecystitis due to biliary calculus: Code(s): K80.00 - Calculus of gallbladder with acute cholecystitis without obstruction Plan: Status post laparoscopic cholecystectomy. She is doing well postoperatively. All incisions are well healed. She has no GI complaints. I advised her to avoid any lifting more than 20 lb for about 2 more weeks. She can follow up on a p.r.n. basis otherwise. Coding Level of Care Code Global (33180) Diagnoses Acute cholecystitis due to biliary calculus K80.00
== END 2023-06-26 12:40 | disposition home or self-care (01) ==
PROVIDERS: PCP Physician Assistant; Visit Provider Surgery
DX: K80.00 Calculus of gallbladder with acute cholecystitis without obstruction (principal)
CPT/HCPCS: 99024

== ENCOUNTER → 2023-06-26 11:45 | Outpatient (BNVA) | payer MEDICARE, MEDICAID, SELFPAY | PROVIDERS: PCP Physician Assistant; Visit Provider Surgery | DX: K80.00 Calculus of gallbladder with acute cholecystitis without obstruction (principal) | CPT/HCPCS: 99212 ==

== ENCOUNTER 2024-03-27 10:08 | Outpatient (REF) | payer MEDICARE, SELFPAY ==
--- NOTE | ~2024-03-27 | MM_ITS ---
EXAMINATION: MM SCREENING DIGITAL BREAST TOMOSYNTHESIS, BILATERAL CLINICAL INFORMATION: Screening. Asymptomatic. COMPARISON: Mammography: Comparison is made with available priors TECHNIQUE: Digital breast mammography with tomosynthesis is performed in both the craniocaudal and mediolateral oblique views along with computer-aided detection (CAD). FINDINGS: The breasts are heterogeneously dense, which may obscure small masses (ACR BI-RADS breast composition Category c). There are no significant masses, abnormal calcifications, or other abnormalities. MM/MM tomosynthesis screening BI IMPRESSION: No mammographic evidence of malignancy. ASSESSMENT: BI-RADS BI-RADS 1 - Negative RECOMMENDATION: Routine annual mammography screening. 1 year F/U This examination should not preclude the clinical evaluation of a suspicious palpable abnormality. This patient's information was entered into a reminder system with a target due date for their next mammogram. Electronically signed by: Renetta Vega DO 04/09/2024 08:07 PM EDT
== END 2024-03-27 10:09 | disposition home or self-care (01) ==
LOC: HO.MAMMO 10:08
PROVIDERS: PCP Internal Medicine; Visit Provider Internal Medicine
DX: Z12.31 Encounter for screening mammogram for malignant neoplasm of breast (principal)
CPT/HCPCS: 77063; 77067

== ENCOUNTER → 2024-03-27 10:15 | Outpatient (BNV) | payer MEDICARE, SELFPAY | PROVIDERS: PCP Internal Medicine; Visit Provider Internal Medicine | DX: Z12.31 Encounter for screening mammogram for malignant neoplasm of breast (principal) | CPT/HCPCS: 77063; 77067 ==

== ENCOUNTER 2024-09-21 08:23 | Day surgery (SDC) | payer MEDICARE, SELFPAY ==
[2024-09-17 14:07] VITALS: BMI 23.6
--- OUTSIDE RECORDS SUMMARY | 2024-09-21 08:29 | XMS_ITS | Clinical Summary ---
Author Organization 175 [facility] Address [address] [place] [address] Phone Care Team Providers Care Certified Orthotist/Pedorthist Name Role Phone Michelle Guzman MD Primary Care Prov ider Allergies Active Allergy Reactions Criticality Noted Date Comments Bupropion 08/14/2022 Hives Cat Dander 10/26/2010 Codeine Medium 06/24/2015 Flushing, facial redness, diaphoresis Hydroxyzine Hcl Anaphylaxis High 05/31/2008 Meperidine Hcl Anaphylaxis High 05/31/2008 Mold 10/26/2010 Penicillins 05/31/2008 Other Reaction(s): Hives/Urticaria Pentobarbital Sodium Anaphylaxis High 05/31/2008 Medications acetaminophen (TYLENOL 8 HOUR) 650 mg 8 hr tablet Take 1 tablet (650 mg total) by mouth every 8 (eight) hours if needed. 024 Active diclofenac (VOLTAREN) 75 mg EC tablet Take 1 tablet (75 mg total) by mouth 2 (two) times a day. 024 Active famotidine (PEPCID) 20 mg tablet Take 1 tablet (20 mg total) by mouth 2 (two) times a day. 024 Active cetirizine (ZyrTEC) 10 mg tablet Take 1 tablet (10 mg total) by mouth 1 (one) time each day. 023 Active senna-docusate (PERICOLACE) 8.6-50 mg per tablet Take 2 Tablets by mouth at bedtime for 30 doses. Please take this as needed to prevent constipation while taking narcotic pain medication after surgery. 023 Active LORazepam (ATIVAN) 0.5 mg tablet Take 0.5-1 Tablets by mouth daily as needed for Anxiety for up to 30 days. 023 Active albuterol HFA (PROAIR HFA ; PROVENTIL HFA ; VENTOLIN HFA) 90 mcg/actuation inhaler Inhale 2 Puffs into the lungs every 4 hours as needed for Cough, Wheezing or Shortness of Breath. 023 Active diphenhydrAMINE (BENADRYL) 25 mg tablet Take 1 tablet (25 mg total) by mouth every 8 (eight) hours if needed. 023 Active cromolyn (OPTICROM) 4 % ophthalmic solution Administer 1 drop into both eyes 4 (four) times a day. 023 Active fluticasone propionate (FLONASE) 50 mcg/actuation nasal spray Administer 2 sprays into affected nostril(s) 1 (one) time each day. 022 Active albuterol 2.5 mg /3 mL (0.083 %) nebulizer solution 2-4x daily 012 Active montelukast (Singulair) 10 mg tablet 1 tab po qhs 009 Active medical supply, miscellaneous (MISCELLANEOUS MEDICAL SUPPLY MISC) Spacer/Aero-Hol ding Chambers (BREATHERITE RICARDO SPACER ADULT) MIS 1 Device by Does not apply route as needed. use w Symbicort 011 Active pantoprazole (PROTONIX) 40 mg EC tablet TAKE 1 TABLET BY MOUTH EVERY DAY 90 tablet 024 Active levothyroxine (SYNTHROID, LEVOTHROID) 75 mcg tablet TAKE 1 TABLET BY MOUTH EVERY DAY 90 tablet 3 025 Active sertraline (ZOLOFT) 100 mg tablet TAKE 1 AND 1/2 TABLETS DAILY BY MOUTH 135 tablet 1 025 Active ibuprofen (ADVIL,MOTRIN) 600 mg tablet TAKE 1 TABLET BY MOUTH EVERY 8 HOURS IF NEEDED FOR MILD PAIN. 90 tablet 02/14/2 025 Active ibuprofen (ADVIL,MOTRIN) 600 mg tablet Take 1 tablet (600 mg total) by mouth every 8 (eight) hours if needed for mild pain. 90 tablet 024 2024 Discontinued Hospital, Clinic, or Other Facility Administered Medication Ordered Dose Route Frequency Start Date End Date Status ibuprofen (ADVIL,MOTRIN) tablet 600 mgIndications:pain 600 mg oral Every 8 hours PRN 06/26/2024 Active Active Problems Problem Noted Date Diagnosed Date Acute lateral meniscus tear of right knee 2023 Stress fracture of right tibia 06/26/2024 Primary osteoarthritis of right knee 07/06/2022 Rash and nonspecific skin eruption 11/16/2020 Vasomotor symptoms due to menopause 12/18/2019 Overview (05/12/2024): Last Assessment & Plan: Counseled the patient re: options for treatment of vasomotor sx. Explained there are herbal supplements which have not been shown to be effective over placebo and are not FDA monitored for dose and side effect, but can be helpful for some women. Also discussed option for SSRI, SNRI (Effexor, Celexa, Paxil), Gabapentin and Clonidine and reviewed their expected SE. I discussed hormone therapy and reviewed the findings of the [facility]. I discussed risks including cardiovascular disease- TN, DVT, stroke. I discussed small increased risk of breast cancer in women with uterus who use progestin for endometrial protection. I explained risk of DVT can be decreased by taking estradiol transdermally. I explained that risk of heart disease in I was highest in women who were 10 years or more out from menopause and thus I would not consider her a candidate for HT as the risk of TN is substantially increased. I explained that Dr. Daniels's idea to try Celexa is a good option, but that I agree she would need to come off her Zoloft before starting. She was unsure if she can tolerate coming off the Zoloft. I explained that Zoloft has not been shown to be effective. She was weary of starting Clonidine due to risk of dry mouth as she already has that. Ultimately, after much discussion, she desired to consider options further. I gave her literature from ACOG and UpToDate to review on her own. She agreed to call in with her decision. Primary osteoarthritis of both hands 04/30/2018 Overview (05/12/2024): Seeing rheumatology Muscle spasm of back 10/25/2016 B12 deficiency 05/17/2016 Leukopenia 03/15/2016 Chronic headache 09/01/2010 Overview (05/12/2024): Onset in childhood. IBS (irritable bowel syndrome) 09/01/2010 Overview (05/12/2024): Onset approx early 20's. Alt con/diarrhea. Atypical chest pain 09/01/2010 Overview (05/12/2024): Different than heartburn. Allergic rhinitis 07/29/2008 Overview (05/12/2024): Sees Dr. Quintero Asthma, moderate persistent, poorly-controlled 1 07/31/2007 GERD (gastroesophageal reflux disease) 8 Depression 05/31/2008 Anxiety 05/31/2008 Hypothyroidism 05/31/2008 Encounters Date Type Department Care Team Description 07/23/2024 Telephone Orthopedic Surgery [facility] [address] [phone] Mimi Lackey MA Surgery 07/13/2024 Telephone Orthopedic Surgery [facility] 250 175 [facility] [address] [place] [phone] Mimi Lackey MA surgery 06/26/2024 10:30 AM EST Consult Orthopedic Surgery [facility] [address] [phone] Uriel Tomlin MD Acute lateral meniscus tear of right knee, subsequent encounter (Primary Dx); Stress fracture of right tibia with delayed healing, subsequent encounter 06/26/2024 Telephone Orthopedic Surgery [facility] [address] [phone] Uriel Tomlin MD from Last 3 Months Immunizations Name Administration Dates Next Due Influenza Quadravalent, MDCK , 0.5ml, preservative free (Flucelvax) 6mo and older 07/06/2022 Influenza Quadravalent, MDCK , 0.5ml, with preservative (Flucelvax) 6mo and older 05/04/2023,07/25/2021 Influenza trivalent, 0.5mL, preservative free (Fluarix; FluLaval; Fluzone) ages 6mo and older (Afluria) 3 years and older 03/15/2017,05/02/2016,04/13/2015,07/02,04/03/2011,04/21/2010,05/31/2008 Influenza trivalent, with pr eservative (Fluzone; Afluria) 6mo and older 04/23/2018 Pneumococcal polysaccharide 23 valent (Pneumovax 23) 2yo and older 05/13/2013 Tdap Tetanus diptheria acell ular pertussis (Boostrix; Adacel) 7yo and older 08/10/2021,04/03/2011 Surgical History Surgery Date Site/Laterality Comments HYSTERECTOMY PROCEDURE: HISTORICAL HYSTERECTOMY; COMMENT: BSO COLONOSCOPY W/ POLYPECTOMY 09/06/2008 PROCEDURE: LA COLSC FLX W/RMVL OF TUMOR POLYP LESION SNARE TQ; COMMENT: 10 mm tubular adenoma, Jones in [place]. ESOPHAGOGASTRODUODENOSCOPY 09/06/2008 PROCEDURE: LA EGD TRANSORAL BIOPSY SINGLE/MULTIPLE; COMMENT: duodenum and stomach normal; [place] Jones. APPENDECTOMY PROCEDURE: HISTORICAL APPENDECTOMY SHOULDER SURGERY 08/27/2022 Left PROCEDURE: HISTORICAL SHOULDER SURGERY; COMMENT: L large cuff repair w/augmentation, SAD, Biceps tenodesis with Dr. Tomlin CHOLECYSTECTOMY 06/12/2023 PROCEDURE: HISTORICAL CHOLECYSTECTOMY Medical History Medical History Date Comments Chronic headache 09/01/2010 DX:Chronic head ache IBS (irritable bowel syndrome) 09/01/2010 D X:IBS (irritable bowel syndrome) Atypical chest pain 09/01/2010 DX:Atypical chest pain Personal history of colonic polyps 09/01/2010 DX:Personal history of colonic polyps Family History Medical History Relation Name Comments Arthritis Aunt 1 Colon cancer Aunt 2 maternal Arthritis Father Diabetes Father Other: coronary artery disease Father Thyroid disease Father Arthritis Mother Asthma Mother Colon polyps Mother dx age > 60 Asthma Sister 1 Ovarian cancer Neg Hx Uterine cancer Neg Hx Relation Name Status Comments Aunt 1 Aunt 2 Father renal failure, dm, alzheimers Mother Alive asthma, Sister 1 Sister 2 Alive mi at age 57 Sister 3 Alive Sister 4 Alive asthma Social History Tobacco Use Types Packs/Day Years Used Date Smoking Tobacco: Former Cigarettes 1 7 0 07/15/1977 - 07/15/1984 Smokeless Tobacco: Never Alcohol Use Standard Drinks/Week Comments Yes 5 (1 standard drink = 0.6 oz pur e alcohol) Housing Instability Answer Date Recorde d Are you worried that in the next 2 months you may not have stable housing? No 06/21/2024 Food Access & Nutrition Answer Date Rec orded Do you have access to a vari ety of food including fruits and vegetables? Yes 06/21/2024 Health Literacy Answer Date Recorded How often do you need to hav e someone help you when you read instructions, pamphlets, or other written material from your doctor or pharmacy? Never 06/21/2024 Caregiver: How often do you need to have someone help you when you read instructions, pamphlets, or other written material from your doctor or pharmacy? Not on file 06/21/2024 Financial Risk Answer Date Recorded How hard is it for you to pa y for the very basics like food, housing, medical care, and air conditioning / heating? Not asked 06/21/2024 Transportation Answer Date Recorded Has the lack of transportati on kept you from meetings, work, or from getting things needed for daily living? No Has the lack of transportati on kept you from medical appointments or from getting medications? No 06/21/2024 Food Risk Answer Date Recorded Within the past 12 months we worried whether our food would run out before we got money to buy more. Never true 06/21/2024 Within the past 12 months th e food we bought just didn't last and we didn't have money to get more. Never true 06/21/2024 Dependent Care Answer Date Recorded Do you need help finding or paying for care for your loved ones. For example, child health associate or elderly care for an older adult? No 06/21/2024 Education Answer Date Recorded Do you think completing more education or training, like finishing a GED, going to college, or learning a trade, would be helpful for you? No 06/21/2024 Employment and Income Answer Date Recor ded During the last four weeks, have you been actively looking for work? Unable to respond 06/21/2024 Living Situation Answer Date Recorded What is your living situation? 1 08/22/2023 Comments Unknown Sex and Gender Information Value Date Recorded Sex Assigned at Not on file Legal Sex Female 8:46 AM EST Gender Identity Not on file Sexual Orientation Not on file Obstetrics History Last Filed Vital Signs Vital Sign Reading Time Taken Comments Blood Pressure 120/68 12/20/2023 9:33 AM EDT Pulse 69 12/20/2023 9:33 AM EDT Temperature - - Respiratory Rate - - Oxygen Saturation - - Inhaled Oxygen Concentration - - Weight 55.3 kg (122 lb) 06/26/2024 10:38 AM EST Height 152.4 cm (5') 06/26/2024 10:38 AM EST Body Mass Index 23.83 06/26/2024 10:38 AM EST Plan of Treatment Upcoming Encounters Date Type Department Care Team (Latest Contact Info) Description 10/08/2024 7:30 AM EDT Hospital Encounter [facility] OR [address] [place] [phone] Uriel Tomlin MD [address] [address] 10/08/2024 7:30 AM EDT - 10/08/2024 9:30 AM EDT Surgery [facility] OR [address] [place] [phone] Uriel Tomlin MD [address] [address] ARTHROSCOPY RIGHT KNEE. Percutaneous injection proximal lateral tibia with calcium phosphate bone substitute [59322 (CPT??) +1 more] 10/12/2024 10:30 AM EDT Evaluation Outpatient Rehabilitation - [address] [phone] Moose Stewart, MARIANA 10/23/2024 11:30 AM EDT Office Visit Orthopedic Surgery - [place] [address] [phone] Candi Matthews PA [address] [address] Scheduled Procedures Name Priority Associated Diagnoses Date/Ti me ARTHROSCOPY KNEE Acute lateral meniscus tear of right knee, subsequent encounter Stress fracture of right tibia with delayed healing, subsequent encounter 10/08/2024 7:30 AM EDT Health Maintenance Due Date Last Done Comments Breast Cancer Screening 1960 Zoster Vaccines (1 of 2) 2009 Pneumococcal Vaccine: 50+ Years (2 of 2 - PCV) 05/13/2014 05/13/2013 Pneumococcal Vaccine: Pediatrics (0 to 5 Years) and At-Risk Patients (6 to 64 Years) (2 of 2 - PCV) 05/13/2014 05/13/2013 Medicare Annual Wellness Visit 06/17/2022 Osteoporosis Screening (Bone Density Screening) 06/17/2022 Colorectal Cancer Screening: Colonoscopy 09/08/2023 09/08/2013 Depression Screening 06/21/2025 06/21/2024 Social Influencers of Health Screening 06/21/2025 06/21/2024 Falls Risk Assessment 06/22/2025 06/22/2024 Cholesterol Screening (Lipid Panel) 02/13/2028 02/12/2023 DTaP,Tdap,and Td Vaccines (3 - Td or Tdap) 08/10/2031 08/10/2021, 04/03/2011 Hepatitis C Screening Completed 03/18/2019 COVID-19 Vaccine Completed 05/22/2024, , 07/25/2021, Additional history exists Influenza Vaccine Completed 05/22/2024, , 07/06/2022, Additional history exists RSV Immunization Patients 60+ Years Old Completed 05/22/2024 HIB Vaccines Aged Out No longer eligi ble based on patient's age to complete this topic HPV Vaccines Aged Out No longer eligi ble based on patient's age to complete this topic Hepatitis A Vaccines Aged Out No long er eligible based on patient's age to complete this topic Hepatitis B Vaccines Aged Out No long er eligible based on patient's age to complete this topic IPV Vaccines Aged Out No longer eligi ble based on patient's age to complete this topic MMR Vaccines Aged Out No longer eligi ble based on patient's age to complete this topic Meningococcal ACWY Vaccine Aged Out N o longer eligible based on patient's age to complete this topic Meningococcal B Vacine Aged Out No lo nger eligible based on patient's age to complete this topic RSV Immunization Patients Under 20 months Aged Out No longer eligible based on patient's age to complete this topic Varicella Vaccines Aged Out No longer eligible based on patient's age to complete this topic Procedures Procedure Name Priority Date/Time Associated Diagnosis Comments LIPID PANEL Routine 02/12/2023 HEPATITIS C SCREENING Routine 03/18/2019 COLONOSCOPY Routine 09/08/2013 from Last 3 Months or Most Recently Relevant to Health Maintenance Results * (ABNORMAL) Lipid panel (02/12/2023) Pathologist [facility] LDL/HDL Ratio 3 0 - 4 Triglycerides 136 0 - 150 mg/dL Cholesterol 196 0 - 200 mg/dL HDL 63 >=40 mg/dL LDL Cholesterol 106(A) 0 - 100 mg/dL Blood Venous blood specimen / Unknown [facility] Provider LAB BLOOD ORDERABLES Milly l Result * Hepatitis C Screening (03/18/2019) Pathologist [facility] Hepatitis C Screening Abstracted [facility] Provider HEALTH MAINTENANCE Final Result * Colonoscopy (09/08/2013) Colonoscopy No Interpretation , Abstracted Anatomical Region Laterality Modality Other [facility] Provider HEALTH MAINTENANCE Final Result from Last 3 Months or Most Recently Relevant to Health Maintenance Insurance MEDICARE MEDICAID - [place] Care Teams Certified Orthotist/Pedorthist Relationship Specialty Start Date End Date Michelle Guzman MD [address] [place] [phone] PCP - General Internal Medicine 02/19/22
--- OUTSIDE RECORDS SUMMARY | 2024-09-21 08:29 | XMS_ITS ---
Author Organization [facility] Address [address] [place] [phone] Care Team Providers Care Group Social Worker Name Role Phone Michelle Jerez M.D. Primary Care Provider Unavailable Blayne Jones Unavailable [phone] REASON FOR VISIT screening,hx polyps,gerd Encounters Encounter Location Date Provider Diagnosis [facility] Outpatient [address] [place] [phone] 09/21/2024 Blayne Jones Plan Of Treatment Next Appt Details Provider Name:Blayne Joens , 09/21/2024 08:30:00 AM, [address] [place] [address], [phone], Progress Notes * CARMELITA DEVORAJENNIFEROB:[birth year] (64 yo F)Acc No.[id number]:09/21/2024 EGD&COL/MAC Patient:?CARMELITADEVORAANTWAN Provider:?Blayne Jones MD :1960???Age:64 Y???Sex:Female D ate:09/21/2024 Address:[address] [place], [place] [id number] Pcp:Codey Oviedo Subjective: * Chief Complaints: * ???1. Screening,hx polyps,ge rd. * Medical History:? Objective: * Vitals:? Assessment: Plan: * Treatment: * * The named appointment provid er may or may not be the originator of this progress note, and it is not deemed complete until electronically signed by the appointment provider. Sign off status: Pending * Provider:?Balyne Jones MD Date:? 025 Generated for Juan Francisco leslie/Swathi/Jordy on:?09/21/2024 08:29 AM EDT
--- OUTSIDE RECORDS SUMMARY | 2024-09-21 08:29 | XMS_ITS ---
Author Organization [facility] Address [address] [place] [address] Care Team Providers Care Technical Supervisor Name Role Phone Michelle Jerez M.D. Primary Care Provider Unavailable Blayne Jones Unavailable [phone] Allergies Allergen (clinical drug ingredient) Drug/Non Drug Allergy documented on EMR Reaction Allergy Type Onset Date Status Penicillin Unknown Drug Allergy Active hydroxyzine Vistaril Unknown Drug Allergy Activ e meperidine Demerol Unknown Drug Allergy Active sodium pentathol (uncoded) Unknown Allergy Active REASON FOR VISIT Patient presents today for a recall colonoscopy Medications Medication SIG (Take, Route, Frequency, Duration) Notes Start Date End Date Status Fasenra 30 MG/ML Subcutaneous for 56 Active Ibuprofen 800 MG 1 tablet Orally BID Active Albuterol Sulfate HFA 108 (90 Base) MCG/ACT Inhalation for 17 Activ e Ventolin HFA 108 (90 Base) MCG/ACT TAKE 2 PUFFS BY MOUTH EVERY 4 HOURS NEEDED Inhalation every 6 hrs/prn Active Lorazepam Active Omeprazole 20 MG 1 tablet 1/2 to 1 ho ur before morning meal Orally Once a day for 30 day(s) Active Levothyroxine Sodium 25mg 1 tablet Orall y Once a day Active Zoloft 100 MG 1 tablet Orally Once a day Active Protonix 40 MG 1 tablet Orally twic e a day Active Social History Alcohol Screen Question Answer Notes Did you have a drink contain ing alcohol in the past year? Yes How often did you have a dri nk containing alcohol in the past year? 2 to 4 times a month (2 points) How many drinks did you have on a typical day when you were drinking in the past year? 1 or 2 drinks (0 point) How often did you have 6 or more drinks on one occasion in the past year? Never (0 point) Points 2 Interpretation Negative Section Notes: Nonsmoker >10 yrs ago; no si g alcohol occassional wine at dinner Vital Signs Blood pressure systolic 00 mm Hg 05/19/20 24 Blood pressure diastolic 00 mm Hg 024 Height 60 in 05/19/2024 Weight 121 lbs 05/19/2024 BMI 23.63 kg/m2 05/19/2024 Encounters Encounter Location Date Provider Diagnosis [facility] [address] [place] [address] 05/19/2024 Blayne Jones Encounter for screen ing for malignant neoplasm of colon Z12.11 ; Gastroesophageal reflux disease without esophagitis K21.9 and History of adenomatous polyp of colon Z86.010 Assessments Encounter Date Diagnosis (ICD Code) Assessment Notes Treatment Notes Treatment Clinical Notes Section Notes 05/19/2024 Encounter for screening for malignant neoplasm of colon (ICD-10 - Z12.11) Overall, Ailyn appears well. Her reflux seems to be somewhat more bothersome despite the BID PPIs and therefore I recommend she undergo a followup upper endoscopy since her last exam was back in 2014. I advised her that it would be important to reassess the hiatal hernia, and to be sure she does not have any significant esophagitis, Fletcher's esophagus, or other pathology. Given the intermittent dysphagia I advised her that if need be we could perform balloon dilation on the same day if she is found to have anything such as an esophageal stricture or ring. I also recommend a followup screening colonoscopy given her history of colon polyps and her last colonoscopy being over 5 years ago. We did review the rationale for that regard to colon cancer prevention. Full consent is obtained from her for both procedures, including risks of bleeding and perforation. The procedures will be done with monitored anesthesia care. Ailyn was comfortable with this plan. Thank you again for allowing me to participate in Ailyn's care. I shall continue to keep you advised of her progress. 05/19/2024 Gastroesophageal reflux disease without esophagitis (ICD-10 - K21.9) Overall, Ailyn appears well. Her reflux seems to be somewhat more bothersome despite the BID PPIs and therefore I recommend she undergo a followup upper endoscopy since her last exam was back in 2014. I advised her that it would be important to reassess the hiatal hernia, and to be sure she does not have any significant esophagitis, Fletcher's esophagus, or other pathology. Given the intermittent dysphagia I advised her that if need be we could perform balloon dilation on the same day if she is found to have anything such as an esophageal stricture or ring. I also recommend a followup screening colonoscopy given her history of colon polyps and her last colonoscopy being over 5 years ago. We did review the rationale for that regard to colon cancer prevention. Full consent is obtained from her for both procedures, including risks of bleeding and perforation. The procedures will be done with monitored anesthesia care. Ailyn was comfortable with this plan. Thank you again for allowing me to participate in Ailyn's care. I shall continue to keep you advised of her progress. 05/19/2024 History of adenomatous polyp of colon (ICD-10 - Z86.010) Overall, Ailyn appears well. Her reflux seems to be somewhat more bothersome despite the BID PPIs and therefore I recommend she undergo a followup upper endoscopy since her last exam was back in 2014. I advised her that it would be important to reassess the hiatal hernia, and to be sure she does not have any significant esophagitis, Fletcher's esophagus, or other pathology. Given the intermittent dysphagia I advised her that if need be we could perform balloon dilation on the same day if she is found to have anything such as an esophageal stricture or ring. I also recommend a followup screening colonoscopy given her history of colon polyps and her last colonoscopy being over 5 years ago. We did review the rationale for that regard to colon cancer prevention. Full consent is obtained from her for both procedures, including risks of bleeding and perforation. The procedures will be done with monitored anesthesia care. Ailyn was comfortable with this plan. Thank you again for allowing me to participate in Ailyn's care. I shall continue to keep you advised of her progress. Plan Of Treatment Future Test Test Name Order Date UPPER GI ENDOSCOPY 05/19/2024 COLONOSCOPY 05/19/2024 Next Appt Details Follow Up: prn, Reason: Provider Name:Blayne Heather Jones , 09/21/2024 08:30:00 AM, [address] [place] [address] , [place], [place], [phone], Progress Notes * KEMAR MAEOB:[birth year] (64 yo F)Acc No.[id number]:05/19/2024 Progress Notes Patient:AILYN RODRIGUES Provider:?Blayne Jones MD :1960???Age:64 Y???Sex:Female D ate:05/19/2024 Address:[address] [place] [address] Pcp:Codey Oviedo Subjective: * Chief Complaints: * ???Patient presents today fo r a recall colonoscopy * HPI: ???incontinence:? I saw Ailyn in consultation today in regard to further evaluation of her gastroesophageal reflux, intermittent dysphagia, personal history of colon polyps, and need for colorectal cancer screening. ?I last saw Ailyn in 2019, at which time she underwent a screening colonoscopy with removal of a small tubular adenoma. She presently feels well in general. She describes her bowel movements are fairly regular and she has not noticed any hematochezia nor melena. She has been having some increasing reflux despite being on her daily Protonix. She is now also using one [id number]-[id number] omeprazole in the evening with further relief of her reflux symptoms. She does have occasional dysphagia to solid food but this is infrequent. She reports her appetite is fairly good. She denies nausea or vomiting. Her bowel movements are fairly regular and she denies any hematochezia or melena. She denies any abdominal pain nor jaundice. ?Her last upper endoscopy in 2014 showed a moderate-sized hiatal hernia but no significant esophagitis nor Fletcher's esophagus. * ROS:?General/Constitutional:?Change in appetite?denies.?Chills?denies.?Fatigue?denies.?Ophthalmologic:?Patient denies? Negative..?ENT:?Patient denies?Negative..?Respiratory:?Patient denies?No coughing/hemoptysis..?Cardiovascular:?Patient denies? No chest pain/orthopnea..?Gastrointestinal:?Comments?See HPI for details.?Genitourinary:?Patient denies? No dysuria/hematuria..?Musculoskeletal:?Patient denies? No specific arthralgias/myalgias..?Skin:?Patient denies?No rash/pruritus..?Neurologic:?Patient denies? No headaches/seizures..?Psychiatric:?Admits?Anxiety.? * Medical History:? * Surgical History:?TAMIR guadarrama 3CCY ataracts * Hospitalization/Major Diagno stic Procedure:?No Hospitalization History. * Family History:?Father: dece ased, diagnosed with HTN (hypertension), Diabetes, Heart disease.?Mother: alive, Had colon polyps, diagnosed with Colon polyps.? No colorectal cancer, celiac disease, nor IBD. * Social History:?Tobacco Use:?Tobacco Use/Smoking?Are you a: former smoker , How long has it been since you last smoked?: > 10 years.?Drugs/Alcohol:?Alcohol Screen?Did you have a drink containing alcohol in the past year??Yes,?How often did you have a drink containing alcohol in the past year??2 to 4 times a month (2 points),?How many drinks did you have on a typical day when you were drinking in the past year??1 or 2 drinks (0 point),?How often did you have 6 or more drinks on one occasion in the past year??Never (0 point),?Points?2,?Interpretation?Negative.?Miscellaneous:?Caffeine: 1-2 cups per day. Marital status: . Occupation: Patient is on disablity. ???Nonsmoker >10 yrs ago; no sig alcohol occassional wine at dinner. * Medications:?TakingOmeprazol e 20 MG Tablet Delayed Release 1 tablet 1/2 to 1 hour before morning meal Orally Once a dayLorazepam Zoloft 100 MG Tablet 1 tablet Orally Once a dayLevothyroxine Sodium 25mg Tablet 1 tablet Orally Once a dayProtonix 40 MG Tablet Delayed Release 1 tablet Orally twice a dayFasenra 30 MG/ML Solution Prefilled Syringe Subcutaneous Albuterol Sulfate HFA 108 (90 Base) MCG/ACT Aerosol Solution Inhalation Ibuprofen 800 MG Tablet 1 tablet Orally BIDVentolin HFA 108 (90 Base) MCG/ACT Aerosol Solution TAKE 2 PUFFS BY MOUTH EVERY 4 HOURS NEEDED Inhalation every 6 hrs/prnTaking Omeprazole 20 MG Tablet Delayed Release 1 tablet 1/2 to 1 hour before morning meal Orally Once a dayTaking Lorazepam Taking Zoloft 100 MG Tablet 1 tablet Orally Once a dayTaking Levothyroxine Sodium 25mg Tablet 1 tablet Orally Once a dayTaking Protonix 40 MG Tablet Delayed Release 1 tablet Orally twice a dayTaking Fasenra 30 MG/ML Solution Prefilled Syringe Subcutaneous Taking Albuterol Sulfate HFA 108 (90 Base) MCG/ACT Aerosol Solution Inhalation Taking Ibuprofen 800 MG Tablet 1 tablet Orally BIDTaking Ventolin HFA 108 (90 Base) MCG/ACT Aerosol Solution TAKE 2 PUFFS BY MOUTH EVERY 4 HOURS NEEDED Inhalation every 6 hrs/prnDiscontinuedSingulair 5 MG Tablet 1 tablet Orally Once a day/prnLoratadine 10 MG Tablet TAKE 1 TABLET BY MOUTH EVERY DAY Oral Zantac 150 Maximum Strength 150 MG Tablet 1 tablet at bedtime Orally Once a dayDicyclomine HCl 10 MG Capsule TAKE 1 CAPSULE BY MOUTH BEFORE EACH MEAL, AND TAKE 1 OR 2 CAPS 2 MORE TIMES DURING THE DAY NEEDED FOR DIARRHEA/BLOATING Hyoscyamine Sulfate 0.125 MG Tablet 1 or 2 po Q 4 to 6 hours as needed for abdominal discomfort/bloatingHyoscyamine Sulfate 0.125 MG Tablet Sublingual TAKE 1 OR 2 TABLETS UNDER THE TONGUE SUBLINGUAL EVERY 6 HOURS NEEDED ABDOMINAL CRAMPS/DISCOMFORT 30 DAYS Medication List reviewed and reconciled with the patientDiscontinued Singulair 5 MG Tablet 1 tablet Orally Once a day/prnDiscontinued Loratadine 10 MG Tablet TAKE 1 TABLET BY MOUTH EVERY DAY Oral Discontinued Zantac 150 Maximum Strength 150 MG Tablet 1 tablet at bedtime Orally Once a dayDiscontinued Dicyclomine HCl 10 MG Capsule TAKE 1 CAPSULE BY MOUTH BEFORE EACH MEAL, AND TAKE 1 OR 2 CAPS 2 MORE TIMES DURING THE DAY NEEDED FOR DIARRHEA/BLOATING Discontinued Hyoscyamine Sulfate 0.125 MG Tablet 1 or 2 po Q 4 to 6 hours as needed for abdominal discomfort/bloatingDiscontinued Hyoscyamine Sulfate 0.125 MG Tablet Sublingual TAKE 1 OR 2 TABLETS UNDER THE TONGUE SUBLINGUAL EVERY 6 HOURS NEEDED ABDOMINAL CRAMPS/DISCOMFORT 30 DAYS Medication List reviewed and reconciled with the patient * Allergies:?Demerolsodium pen tatholPenicillinVistarilyes[Allergies Verified] Objective: * Vitals:?Wt: 121 lbs, Ht: 60 in, BMI:23.63 Index, BP: 00/00 mm Hg. * Examination: ???General Examination: ?GENERAL APPEARANCE:?pleasant, well nourished, well developed, in no acute distress.?EYES:?sclera non-icteric.?ORAL CAVITY:?mucosa moist.?NECK/THYROID:?no cervical lymphadenopathy, neck supple.?SKIN:?nonjaundiced, no spider angiomata..?HEART:?S1, S2 normal.?LUNGS:?clear to auscultation bilaterally.?ABDOMEN:?normal bowel sounds, no guarding or rigidity, no hepatosplenomegaly, no masses palpable, soft, nontender, nondistended..?EXTREMITIES:?no edema.?NEUROLOGIC:?alert and oriented.? Assessment: * Assessment: 1.?Gastroesophageal reflux d isease without esophagitis - K21.9 (Primary)?2.?Encounter for screening for malignant neoplasm of colon - Z12.11?3.?History of adenomatous polyp of colon - Z86.010? Overall, Ailyn appears wel l. Her reflux seems to be somewhat more bothersome despite the BID PPIs and therefore I recommend she undergo a followup upper endoscopy since her last exam was back in 2015. I advised her that it would be important to reassess the hiatal hernia, and to be sure she does not have any significant esophagitis, Fletcher's esophagus, or other pathology. Given the intermittent dysphagia I advised her that if need be we could perform balloon dilation on the same day if she is found to have anything such as an esophageal stricture or ring. I also recommend a followup screening colonoscopy given her history of colon polyps and her last colonoscopy being over 5 years ago. We did review the rationale for that regard to colon cancer prevention. Full consent is obtained from her for both procedures, including risks of bleeding and perforation. The procedures will be done with monitored anesthesia care. Ailyn was comfortable with this plan. Thank you again for allowing me to participate in Ailyn's care. I shall continue to keep you advised of her progress. Plan: * Treatment: 2.?Encounter for screening for malignant neoplasm of colon?Procedure: COLONOSCOPY (Ordered for 05/19/2024)* with MACsched for 09/21/24 at 9:30 ammiralax 3.?History of adenomatous polyp of colon?Procedure: COLONOSCOPY (Ordered for 05/19/2024)* with MACsched for 09/21/24 at 9:30 ammiralax * Procedure Codes:?3017F COLOR ECTAL CA SCREEN DOC [id number] TOBACCO [id number] BP SCR NOT PRFRM REC REASON NOS * Preventive Medicine:? ??Urinary Incontinence:?Urinary Incontinence?Assessment:?Absent,?Plan of care documented:?No, reason not specified.? ??Screenings:?Fall Risk Screening?Fall Risk Assessment:?No falls in the past year,?Screening:?No falls in the past year,?Assessment:?Not performed, no reason specified,?Plan of Care:?Not documented, no reason specified.? * Follow Up:?prn * * Sign off status: Completed true * Provider:?Blayne Jones MD Date:? 024 Generated for Juan Francisco leslie/Swathi/Wadesmitting on:?09/21/2024 08:29 AM EDT History and Physical Notes * HPI (History of Present Illness) Category Sub-Category Detail Notes Category Not es incontinence I saw Ailyn in consultation today in regard to further evaluation of her gastroesophageal reflux, intermittent dysphagia, personal history of colon polyps, and need for colorectal cancer screening. I last saw Ailyn in 2018, at which time she underwent a screening colonoscopy with removal of a small tubular adenoma. She presently feels well in general. She describes her bowel movements are fairly regular and she has not noticed any hematochezia nor melena. She has been having some increasing reflux despite being on her daily Protonix. She is now also using one mpww-shx-kkioyge omeprazole in the evening with further relief of her reflux symptoms. She does have occasional dysphagia to solid food but this is infrequent. She reports her appetite is fairly good. She denies nausea or vomiting. Her bowel movements are fairly regular and she denies any hematochezia or melena. She denies any abdominal pain nor jaundice. Her last upper endoscopy in 2014 showed a moderate-sized hiatal hernia but no significant esophagitis nor Fletcher's esophagus. Examination Category Sub-Category Detail Notes Category Not es General Examination GENERAL APPEARANCE: pleasant , well nourished, well developed, in no acute distress EYES: sclera non-icteric NECK/THYROID: no cervical lymphade nopathy, neck supple HEART: S1, S2 normal LUNGS: clear to auscultatio n bilaterally ABDOMEN: normal bowel sounds, no guarding or rigidity, no hepatosplenomegaly, no masses palpable, soft, nontender, nondistended. NEUROLOGIC: alert and oriented SKIN: nonjaundiced, no spi josh angiomata. EXTREMITIES: no edema ORAL CAVITY: mucosa moist
--- OUTSIDE RECORDS SUMMARY | 2024-09-21 08:29 | XMS_ITS | Patient Health Record ---
Author Organization [facility] Address [address] [place] [address] Care Team Providers Care Director Of Agronomy Name Role Phone Michelle Jerez M.D. Primary Care Provider Unavailable Blayne Jones Unavailable [phone] Allergies Allergen (clinical drug ingredient) Drug/Non Drug Allergy documented on EMR Reaction Allergy Type Onset Date Status Penicillin Unknown Drug Allergy Active hydroxyzine Vistaril Unknown Drug Allergy Activ e meperidine Demerol Unknown Drug Allergy Active sodium pentathol (uncoded) Unknown Allergy Active Reason For Referral No Information Medications Medication SIG (Take, Route, Frequency, Duration) Notes Start Date End Date Status Lorazepam Active Omeprazole 20 MG 1 tablet 1/2 to 1 ho ur before morning meal Orally Once a day for 30 day(s) Active Levothyroxine Sodium 25mg 1 tablet Orall y Once a day Active Zoloft 100 MG 1 tablet Orally Once a day Active Fasenra 30 MG/ML Subcutaneous for 56 Active Protonix 40 MG 1 tablet Orally twic e a day Active Ibuprofen 800 MG 1 tablet Orally BID Active Albuterol Sulfate HFA 108 (90 Base) MCG/ACT Inhalation for 17 Activ e Ventolin HFA 108 (90 Base) MCG/ACT TAKE 2 PUFFS BY MOUTH EVERY 4 HOURS NEEDED Inhalation every 6 hrs/prn Active Immunizations Vaccine Route Administration Date Status Comme nts Flu vaccine no Preserv 3 and > Unknown 04/06/2015 Admin istered Influenza Unknown 03/15/2017 Administered Influenza Unknown 04/23/2018 Administered Social History Alcohol Screen Question Answer Notes [...] >10 yrs ago; no si g alcohol Nonsmoker >10 yrs ago; no si g alcohol Nonsmoker >10 yrs ago; no si g alcohol Nonsmoker >10 yrs ago; no si g alcohol Nonsmoker >10 yrs ago; no si g alcohol Nonsmoker >10 yrs ago; no si g alcohol occassional wine at dinner Problems Problem Type SNOMED Code ICD Code Onset Dates Problem Status W/U Status Risk Notes Problem 82627118 Epigastric pain (R10.13) Active confirmed Problem 062646313 Encounter for screening for malignant neoplasm of colon (Z12.11) Active confirmed Problem History of adenomatous polyp of colon (984137034) History of adenomatous polyp of colon (Z86.010) Active confirmed Problem 87320270 Irritable bowel syndrome without diarrhea (K58.9) Active confirmed Problem 635118628 Gastroesophageal reflux disease without esophagitis (K21.9) Active confirmed Problem 286775391 History of colon polyps (Z86.010) Active confirmed Problem 810776819 NSAID long-term use (Z79.1) Active confirmed Problem 39212197 Irritable bowel syndrome, unspecified type (K58.9) Active confirmed Vital Signs Blood pressure diastolic 00 mm Hg 05/19/2024 Height 60 in 05/19/2024 Blood pressure systolic 00 mm Hg 05/19/2024 Weight 121 lbs 05/19/2024 BMI 23.63 kg/m2 05/19/2024 Encounters Encounter Location Date Provider Diagnosis [facility] [address] [place] [address] 05/19/2024 Blayne Jones Encounter for screen ing [...] advised of her progress. Plan Of Treatment Pending Test Test Name Order Date NUC HIDA SCAN 05/05/2015 Future Test Test Name Order Date UPPER GI ENDOSCOPY 05/05/2015 COLONOSCOPY 02/11/2019 UPPER GI ENDOSCOPY 05/19/2024 COLONOSCOPY 05/19/2024 Next Appt Details Provider Name:Blayne Heather Jones , 09/21/2024 08:30:00 AM, [address] [place] [address], [phone], Insurance Providers Payer Name Payer Address Payer Phone Subscriber Number Group Number Insured Name Patient Relationship to Insured Coverage Start Date Coverage End Date MEDICARE OF [place] [address] [place] [address] [id number] AILYN MAE Self - patient is the insured Medical (General) History Medical History History ICD Code IBS--negative workup for rivka iac disease and microscopic colitis as described below Asthma Depression and anxiety Neg.gallbladder U/S in 2008; normal with HIDA with CCK in 2014 Colonoscopy in 08/2008-1 smal l tubular adenoma removed; no IBD-bx neg for microscopic colitis GERD-EGD in 08/2008 with a sm all-moderate HH-bx neg for celiac disease and gastritis/H.pylori-no esophagitis Hypothyroidism Denies VA,DM,CVA,renal disease Colonoscopy in 08/2013--hyper plastic polyp, diverticulosis, internal hemorroids--neg. biopsies for microscopic colitis EGD in 06/2015--moderate-siz ed HH, no esophagitis, no Fletcher's---mild gastritis--no Hpylori Colonoscopy 05/2019 with a small tubular adenoma Surgical History Surgery Date(Month/Year) TAMIR Left shoulder 08/2022 CCY 2022 Cataracts
[2024-09-21 08:38] VITALS: BP 128/78; PULSE 76; RESP 18; TEMP 37.1; O2SAT 97; BMI 23.8
[2024-09-21] MEDS: Lactated Ringers 1,000 ML 50 ML IVCONT (08:53)
--- NOTE | 2024-09-21 09:31 | HO.ANESPROP2 ---
HPI - Anesthesia Eval Consult details Narrative: 64 yo F presenting for EGD/colonoscopy [facility] Active Problems Active Problems: All Active Problems Acute cholecystitis due to biliary calculus (Acute) Abnormal LFTs (Acute) Thyroid disease (Acute) Asthma (Acute) Past Medical History Medical History (Updated 09/17/24 @ 14:06 by Kesha Basurto RN) Hypothyroid GERD (gastroesophageal reflux disease) Anxiety Depression Asthma IBS (irritable bowel syndrome) Thyroid disease Asthma Family History Family history of problems with anesthesia: No Surgical History Surgical History (Updated 09/17/24 @ 14:04 by Kesha Basurto RN) History of esophagogastroduodenoscopy (EGD) H/O colonoscopy Hx of shoulder surgery History of laparoscopic cholecystectomy (~06/12/23) History of hysterectomy History of Problems with Anesthesia: No Social History Social History (Updated 09/17/24 @ 14:06 by Kesha Basurto RN) Household Members: Other Housing: House Alcohol intake: current Alcohol intake frequency: holidays/special occasions only Comment: NOT INDICATED Patient Tobacco Use Status: Former Tobacco user Tobacco use type: Cigarette Have you been hit, kicked, punched, or otherwise hurt by someone within the past year? If so, by whom?: No Are you DNR?: No Advance Directives: No Advance Directives Information Provided: Yes Recently lost weight without trying: No service: No Meds Allergies Allergy/AdvReac Type Severity Reaction Status Date / Time hydroxyzine [From Vistaril] Allergy Severe oral hives Verified 09/17/24 14:02 meperidine [From Demerol] Allergy Severe oral hives Verified 09/17/24 14:02 thiopental [SODIUM PENTOTHAL] Allergy Severe ORAL HIVES Verified 06/26/23 11:52 Penicillins [PENICILLINS] Allergy Intermediate HIVES Verified 06/26/23 11:52 Active Medications: Current Medications Lactated Ringer's (Lr) 1,000 mls @ 50 mls/hr IVCONT .Q20H GABRIELLE Last Admin: 09/21/24 08:53 Dose: 50 mls/hr Sodium Biphosphate/Sodium Phosphate (Sodium Phosphate,[place]-Dibasic 133 Ml Enema) 133 ml OH ONCE PRN PRN Reason: Poor Colonoscopy Prep Results Home Medications ?Medication ?Instructions ?Recorded ?Confirmed ?Last Taken ?Type benralizumab 30 mg/mL subcutaneous 30 mg subcut Q8W 06/11/23 09/21/24 06/03/23 History syringe (Fasenra) cetirizine 10 mg tablet 10 mg PO DAILY 06/11/23 09/21/24 06/10/23 History cromolyn 4 % eye drops 1 drp ophthalmic (eye) QID 06/11/23 09/21/24 06/10/23 History cyanocobalamin (vitamin B-12) 1,000 mcg PO DAILY 06/11/23 09/21/24 06/10/23 History 1,000 mcg tablet fluticasone propionate 50 2 spray intranasal BID PRN Allergy 06/11/23 09/21/24 06/10/23 History mcg/actuation nasal Symptoms spray,suspension levothyroxine 75 mcg tablet 75 mcg PO DAILY 06/11/23 09/21/24 06/10/23 History montelukast 10 mg tablet 10 mg PO BEDTIME 06/11/23 09/21/24 06/10/23 History pantoprazole 40 mg tablet,delayed 40 mg PO DAILY 06/11/23 09/21/24 06/10/23 History release sertraline 100 mg tablet 100 mg PO DAILY 06/11/23 09/21/24 06/10/23 History Exam Exam Date and Time: 09/21/24 0930 Height,Weight and Vital Signs: Height 5 ft Weight 55.2 kg Last Vital Signs Temp 98.7 F 09/21/24 08:38 Pulse 76 09/21/24 08:38 Resp 18 09/21/24 08:38 BP 128/78 09/21/24 08:38 Pulse Ox 97 09/21/24 08:38 O2 Del Method Room Air 09/21/24 08:38 Airway Mallampati Class: I TM Dist: >3cm Neck ROM: Full Loose/Missing/Broken Teeth: No (patient denies any loose or broken teeth) Heart: S1S2 Lungs: CTAB Assessment and Plan Assessment Anesthesia Assessment: Anesthesia Plan Discussed and Chart Reviewed Final Anesthetic Review Family History of Problems with Anesthesia: No History of Problems with Anesthesia: No NPO: Yes ASA Class: II Final Preanesthetic Review: No Changes in Pt Med Stat, Meds/Allgs Chart Reviewed, Consent Obtained/Reviewed and Anes Risks/Benef Reviewed Patient Risk: Low Procedure Risk: Low Anesthetic Plan Anesthetic Plan: MAC: and Agree w/ Assess. and Plan Disposition: Standard PACU
[2024-09-21 10:49] VITALS: BP 116/68; PULSE 62; RESP 18; TEMP 36.5; O2SAT 100
--- NOTE | 2024-09-21 10:59 | P.BOP_ITS ---
Brief Operative Note Date of Service: 09/21/24 Pre-op diagnosis: GERD, Dysphagia, Screening Post-op diagnosis: other (Moderate-sized Hiatal hernia, Diverticulosis, Internal hemorrhoids) Procedure: EGD with Balloon dilation of EG Junction from 18mm to 19mm to 20mm, Colonoscopy to the cecum and TI Surgeon: Blayne Jones MD Anesthesia: MAC Was an Senior Linux [employer] Administrator used for this Procedure?: No Estimated blood loss (mL): 0 Pathology: none sent Condition: stable Disposition: PACU
[2024-09-21 11:03] VITALS: BP 123/67; PULSE 63; RESP 18; TEMP 36.2; O2SAT 100
--- NOTE | 2024-09-21 12:53 | OP_ITS ---
DATE OF SERVICE: 09/21/2024 SURGEON: Blayne Jones MD INDICATIONS: The patient presents for evaluation of gastroesophageal reflux, intermittent dysphagia, personal history of colon polyps, and need for colorectal cancer screening. Full consent has been obtained from her for this, including risks of bleeding and perforation. PREOPERATIVE DIAGNOSIS: POSTOPERATIVE DIAGNOSIS: PROCEDURE PERFORMED: Esophagogastroduodenoscopy with balloon dilation of gastroesophageal junction, and colonoscopy to the cecum and terminal ileum. ESTIMATED BLOOD LOSS: COMPLICATIONS: ANESTHESIA: Monitored anesthesia care. ASSISTANTS: SPECIMENS: PREOPERATIVE DIAGNOSES: Gastroesophageal reflux, dysphagia, personal history of tubular adenoma of the colon, and colorectal cancer screening. POSTOPERATIVE DIAGNOSES: Gastroesophageal reflux, dysphagia, personal history of tubular adenoma of the colon, colorectal cancer screening, hiatal hernia, diverticulosis, and internal hemorrhoids. DESCRIPTION OF PROCEDURE: The patient was placed in the left lateral decubitus position. The Olympus video gastroscope was passed in the posterior oropharynx and upper esophagus under direct vision. The scope was passed slowly into the distal esophagus. The gastroesophageal junction appeared at 32 cm. There was no sign of any esophagitis nor Fletcher esophagus. There was no sign of any esophageal stricture nor ring. The scope easily entered the stomach. The hiatal hernia mucosa appeared normal. The scope was advanced to pylorus and the duodenum was cannulated to the descending portion. The duodenum including the bulb appeared normal without mass or ulceration. The scope was withdrawn back to the stomach. The gastric antrum and body appeared normal with good peristalsis. The scope was retroflexed, visualizing the proximal stomach carefully, without any sign of mass or ulceration. The scope was straightened and withdrawn back to the esophagus. Given her symptoms, I did use a [employer] esophageal balloon to dilate the gastroesophageal junction from 18 mm to 19 mm to 20 mm at the recommended pressure for approximately 30 seconds each. However, the balloon moved easily into and out of the hiatal hernia. There was no appreciable heme noted post dilation. The scope was withdrawn through the remainder of the esophagus, which appeared normal. The scope was withdrawn from the patient. She was turned around for the colonoscopy. The digital rectal exam revealed no abnormalities. The Olympus video pediatric colonoscope was then entered into the rectum and advanced easily to the cecum. Once in the cecum, I did identify normal-appearing cecal pouch with appendiceal orifice and a normal-appearing ileocecal valve. The terminal ileum was cannulated and appeared normal. Scope was withdrawn back in the colon. The entire cecum and ileocecal valve appeared normal. The scope was slowly withdrawn assessing all mucosal surfaces carefully. Preparation was excellent. I did not visualize any sign of polyps, colitis, nor angiodysplasias. There was a mild amount of sigmoid diverticulosis. In the rectum, scope was retroflexed, visualizing internal hemorrhoids, but no other pathology. The rectal mucosa appeared normal. The scope was straightened and withdrawn from the patient. She tolerated the procedures well and was returned to the recovery area in stable condition. IMPRESSION: 1. Hiatal hernia, status post balloon dilation of gastroesophageal junction. 2. Diverticulosis. 3. Internal hemorrhoids. PLAN: The patient will continue her current regimen of Protonix once or twice a day for symptomatic relief of her reflux. I would recommend a repeat colonoscopy in 5 years. Given her intermittent dysphagia and a fairly sizable hiatal hernia, I shall obtain an eventual barium swallow to definitively rule out any type of paraesophageal component to the hernia. If that is negative, she will, otherwise, see me on a p.r.n. basis. MD JAMES Ward/TERRI / [id number]
== END 2024-09-21 11:28 | disposition home or self-care (01) ==
PROVIDERS: Visit Provider Internal Medicine
PROC: (CPT 43249; principal; 2024-09-21 09:30)
DX: Z12.11 Encounter for screening for malignant neoplasm of colon (principal); Z86.0101 Personal history of adenomatous and serrated colon polyps; K57.30 Diverticulosis of large intestine without perforation or abscess without bleeding; K64.8 Other hemorrhoids; K58.9 Irritable bowel syndrome, unspecified; K21.9 Gastro-esophageal reflux disease without esophagitis; R13.10 Dysphagia, unspecified; K44.9 Diaphragmatic hernia without obstruction or gangrene; E03.9 Hypothyroidism, unspecified; J45.909 Unspecified asthma, uncomplicated; F41.8 Other specified anxiety disorders; Z79.899 Other long term (current) drug therapy; Z79.1 Long term (current) use of non-steroidal anti-inflammatories (NSAID); Z90.49 Acquired absence of other specified parts of digestive tract; Z88.0 Allergy status to penicillin; Z88.5 Allergy status to narcotic agent; Z88.8 Allergy status to other drugs, medicaments and biological substances; Z87.891 Personal history of nicotine dependence
CPT/HCPCS: 43249; G0105; C1726; J2003; J2704; J3010

== ENCOUNTER 2024-10-26 08:01 | Outpatient (REF) | payer MEDICARE, SELFPAY ==
--- NOTE | ~2024-10-26 | FL_ITS ---
EXAMINATION: XR BARIUM SWALLOW CLINICAL INFORMATION: Dysphagia, hiatal hernia. COMPARISON: None available. TECHNIQUE: Routine upright barium swallow with thick barium and barium coated saltine crackers was performed. Patient was placed prone lying and thin barium was administered. FINDINGS: Following oral administration of thick barium there is normal propagation of bolus from the oral cavity through the pharynx, esophagus into stomach without any obstruction or narrowing. There is a small posterior pharyngeal diverticulum without barium retention. On oral administration of barium coated saltine crackers there is normal propagation bolus from the oral cavity through the pharynx and esophagus. No barium retention seen in the valleculae or piriform sinuses. No laryngeal penetration or aspiration. On placing patient in prone lying and oral administration of thick barium there is good distention of entire esophagus without obstruction, narrowing or stricture. Suspect mild gastroesophageal reflux without hiatal hernia. There is of previous cholecystectomy. FLUOROSCOPY TIME: 2 minutes 44 seconds DOSE AREA PRODUCT: 1118 uGy-m2 (microgray-meter squared) FL/FL barium swallow IMPRESSION: Small pharyngeal diverticulum. Small gastroesophageal reflux without hiatal hernia. Otherwise remarkable upper GI contrast study. Electronically signed by: Jefry Downey MD 10/26/2024 12:44 PM EDT
--- OUTSIDE RECORDS SUMMARY | 2024-10-26 08:07 | XMS_ITS | Clinical Summary ---
Author Organization 175 [facility] Address [address] [place] [address] Phone Care Team Providers Care Labor Economics Teacher Name Role Phone Michelle Guzman MD Primary Care Prov ider Allergies Active Allergy Reactions Criticality Noted Date Comments Bupropion Medium 08/14/2022 Hives Cat Dander 10/26/2010 Codeine Medium 06/24/2015 Flushing, facial redness, diaphoresis Hydroxyzine Hcl Anaphylaxis High 05/31/2008 Meperidine Hcl Anaphylaxis High 05/31/2008 Mold 10/26/2010 Penicillins Medium 05/31/2008 Other Reaction(s): Hives/Urticaria Pentobarbital Sodium Anaphylaxis High 05/31/2008 Medications cetirizine (ZyrTEC) 10 mg tablet Take 1 tablet (10 mg total) by mouth 1 (one) time each day. 023 Active albuterol HFA (PROAIR HFA ; PROVENTIL HFA ; VENTOLIN HFA) 90 mcg/actuation inhaler every 6 (six) hours if needed for wheezing. Inhale 2 Puffs into the lungs every 4 hours as needed for Cough, Wheezing or Shortness of Breath. 023 Active cromolyn (OPTICROM) 4 % ophthalmic solution Administer 1 drop into both eyes 4 (four) times a day. 023 Active fluticasone propionate (FLONASE) 50 mcg/actuation nasal spray Administer 2 sprays into affected nostril(s) 1 (one) time each day. 022 Active albuterol 2.5 mg /3 mL (0.083 %) nebulizer solution 2-4x daily 012 Active medical supply, miscellaneous (MISCELLANEOUS MEDICAL SUPPLY MIS) Spacer/Aero-Hol ding Chambers (BREATHERITE RICARDO SPACER ADULT) MISC 1 Device by Does not apply route as needed. use w Symbicort 011 Active levothyroxine (SYNTHROID, LEVOTHROID) 75 mcg tablet TAKE 1 TABLET BY MOUTH EVERY DAY 90 tablet 3 025 Active sertraline (ZOLOFT) 100 mg tablet TAKE 1 AND 1/2 TABLETS DAILY BY MOUTH 135 tablet 1 025 Active pantoprazole (PROTONIX) 40 mg EC tablet TAKE 1 TABLET BY MOUTH EVERY DAY 90 tablet 025 Active benralizumab (FASENRA SUBQ) Inject under the skin. Active LORazepam (ATIVAN) 0.5 mg tablet Take 1 tablet (0.5 mg total) by mouth 1 (one) time each day if needed for anxiety. Max Daily Amount: 0.5 mg 30 tablet 025 Active acetaminophen (TYLENOL) 500 mg tablet Take 2 tablets (1,000 mg total) by mouth every 8 (eight) hours if needed for mild pain. 60 each 025 Active aspirin 325 mg EC tablet Take 1 tablet (325 mg total) by mouth 1 (one) time each day for 21 days. 21 tablet 025 2024 Active ibuprofen (ADVIL,MOTRIN) 600 mg tablet Take 1 tablet (600 mg total) by mouth every 8 (eight) hours if needed for moderate pain. 60 tablet 025 Active oxyCODONE (ROXICODONE) 5 mg immediate release tablet Take 1-2 tablets (5-10 mg total) by mouth every 4 (four) hours if needed for severe pain. Max Daily Amount: 60 mg 20 each 025 Active senna-docusate (PERICOLACE) 8.6-50 mg per tablet Take 2 tablets by mouth at bedtime. 30 each 025 Active ondansetron ODT (ZOFRAN-ODT) 8 mg disintegrating tabletIndications :Acute lateral meniscus tear of right knee, initial encounter Dissolve 1 tablet (8 mg total) on top of the tongue every 8 (eight) hours if needed for nausea or vomiting. 20 tablet Active cefadroxil 500 mg capsule Take 1 capsule (500 mg total) by mouth 2 (two) times a day for 7 days. 14 capsule 025 2024 Active acetaminophen (TYLENOL 8 HOUR) 650 mg 8 hr tablet Take 1 tablet (650 mg total) by mouth every 8 (eight) hours if needed. 024 2024 Discontinued diclofenac (VOLTAREN) 75 mg EC tablet Take 1 tablet (75 mg total) by mouth 2 (two) times a day. 2024 Discontinued famotidine (PEPCID) 20 mg tablet Take 1 tablet (20 mg total) by mouth 2 (two) times a day. 2024 Discontinued senna-docusate (PERICOLACE) 8.6-50 mg per tablet Take 2 tablets by mouth at bedtime. Take 2 Tablets by mouth at bedtime for 30 doses. Please take this as needed to prevent constipation while taking narcotic pain medication after surgery. 2024 Discontinued LORazepam (ATIVAN) 0.5 mg tablet Take 0.5-1 Tablets by mouth daily as needed for Anxiety for up to 30 days. 2024 Discontinued(R eorder) diphenhydrAMINE (BENADRYL) 25 mg tablet Take 1 tablet (25 mg total) by mouth every 8 (eight) hours if needed. 023 2024 Discontinued montelukast (Singulair) 10 mg tablet Take 1 tablet (10 mg total) by mouth at bedtime. 1 tab po qhs 009 2024 Discontinued ibuprofen (ADVIL,MOTRIN) 600 mg tablet TAKE 1 TABLET BY MOUTH EVERY 8 HOURS IF NEEDED FOR MILD PAIN. 90 tablet 025 2024 Discontinued(S top Taking at Discharge) fexofenadine (ELISA) 60 mg tablet Take 1 tablet (60 mg total) by mouth 1 (one) time each day. 2024 Discontinued Hospital, Clinic, or Other Facility Administered Medication Ordered Dose Route Frequency Start Date End Date Status ibuprofen (ADVIL,MOTRIN) tablet 600 mgIndications:pain 600 mg oral Every 8 hours PRN 06/26/2024 5 Discontinued Active Problems Problem Noted Date Diagnosed Date [...] WHI. I discussed risks including cardiovascular disease- NH, DVT, stroke. I discussed small increased risk [...] candidate for HT as the risk of NH is substantially increased. I explained that Dr. [...] Encounters Date Type Department Care Team Description 10/23/2024 11:30 AM EDT Office Visit Orthopedic Surgery - [place] [address] [place] [address] [address] [place] [address] Candi Matthews PA S/P arthroscopic partial lateral meniscectomy (Primary Dx); Stress fracture of right tibia with delayed healing, subsequent encounter; Post-operative state 10/22/2024 12:00 PM EDT Treatment Outpatient Rehabilitation - [address] [phone] Moose Stewart, PT Acute lateral meniscus tear of right knee, subsequent encounter (Primary Dx) 10/16/2024 10:00 AM EDT Treatment Outpatient Rehabilitation - [address] [phone] Moose Stewart, PT Acute lateral meniscus tear of right knee, subsequent encounter (Primary Dx) 10/12/2024 10:30 AM EDT Evaluation Outpatient Rehabilitation - [address] [phone] Pat, Moose, PT Acute lateral meniscus tear of right knee, subsequent encounter (Primary Dx); Stress fracture of right tibia with delayed healing, subsequent encounter 10/12/2024 Plan of Care Documentation Outpatient Rehabilitation [address] [phone] 10/09/[address] [facility] [address] [facility] [address] [place] [phone] Lashanda Martinez 10/08/2024 7:30 AM EDT - 10/08/2024 9:30 AM EDT Surgery [facility] OR [address] [place] [phone] Uriel Tomlin MD ARTHROSCOPY RIGHT KNEE. Percutaneous injection proximal lateral tibia with calcium phosphate bone substitute [62675 (CPT??) +3 more] 10/08/2024 7:29 AM EDT Anesthesia Event [facility] OR [address] [place] [phone] Renato Peña MD [facility] 10/08/2024 6:00 AM EDT - 10/08/2024 12:15 PM EDT Hospital Encounter [facility] OR [address] [place] [phone] Uriel Tomlin MD Acute lateral meniscus tear of right knee, initial encounter (Primary Dx) Discharge Disposition: Home or Self Care 09/28/2024 10:00 AM EDT Consult Adult Medicine [address] [phone] Madhav Boyer MD Pre-op exam (Primary Dx); Anxiety; Hypothyroidism, unspecified type from Last 3 Months Immunizations Name Administration [...] COMMENT: BSO COLONOSCOPY W/ POLYPECTOMY 09/06/2008 PROCEDURE: AL COLSC FLX W/RMVL OF TUMOR POLYP LESION SNARE TQ; COMMENT: 10 mm tubular adenoma, Jones in [place]. ESOPHAGOGASTRODUODENOSCOPY 09/06/2008 PROCEDURE: AL EGD TRANSORAL BIOPSY SINGLE/MULTIPLE; COMMENT: duodenum and stomach normal; [place] Jones. APPENDECTOMY PROCEDURE: HISTORICAL APPENDECTOMY SHOULDER SURGERY 08/27/2022 Left PROCEDURE: HISTORICAL SHOULDER SURGERY; COMMENT: L large cuff repair w/augmentation, SAD, Biceps tenodesis with Dr. Tomlin CHOLECYSTECTOMY 06/12/2023 PROCEDURE: HISTORICAL CHOLECYSTECTOMY KNEE ARTHROSCOPY 10/08/2024 Right 1. Right knee arthroscopy with PLM (10%); Chondroplasty Lateral Femoral condyle and small lesion Medial femoral condyle; Plica resection; 2. Percutaneous injection proximal lateral tibia with calcium phosphate bone substitute Medical History Medical History Date Comments Chronic headache 09/01/2010 DX:Chronic head ache IBS (irritable bowel syndrome) 09/01/2010 D X:IBS (irritable bowel syndrome) Atypical chest pain 09/01/2010 DX:Atypical chest pain Personal history of colonic polyps 09/01/2010 DX:Personal history of colonic polyps Asthma Hypothyroidism GERD (gastroesophageal reflux disease) Diverticulosis Depression Arthritis Joint pain Motion sickness Family History Medical History Relation Name Comments [...] 0 07/15/1977 - 07/15/1984 Smokeless Tobacco: Never Tobacco Cessation:Counseling Given: Not Answered Alcohol Use Standard Drinks/Week Comments Yes 5 [...] for your loved ones. For example, child protective services specialist or elderly care for an older adult? [...] is your living situation? 1 08/22/2023 Comments No Sex and Gender Information Value Date Recorded Sex Assigned at Female 10/08/2024 5:59 AM EDT Legal Sex Female 8:46 AM EST Gender Identity Female 10/08/2024 5:59 AM EDT Sexual Orientation Straight 10/08/2024 5: 59 AM EDT Obstetrics History Last Filed Vital Signs Vital Sign Reading Time Taken Comments Blood Pressure 115/67 10/08/2024 10:14 AM EDT Pulse 65 10/08/2024 10:14 AM EDT Temperature 36.6 ??C (97.9 ??F) 10/08/2024 10:14 AM E DT Respiratory Rate 20 10/08/2024 10:14 AM EDT Oxygen Saturation 93% 10/08/2024 10:14 AM EDT Inhaled Oxygen Concentration - - Weight 55.4 kg (122 lb 3.2 oz) 09/28/2024 10:01 AM EDT Height 152.4 cm (5') 09/28/2024 10:01 AM EDT Body Mass Index 23.87 09/28/2024 10:01 AM EDT Plan of Treatment Upcoming Encounters Date Type Department Care Team (Late st Contact Info) Description 10/27/2024 8:30 AM EDT Treatment Outpatient Rehabilitation [address] [phone] Moose Stewart, PT 10/29/2024 10:30 AM EDT Treatment Outpatient Rehabilitation - [address] [phone] Moose Stewart, PT 11/03/2024 8:30 AM EDT Treatment Outpatient [address] [phone] Moose Stewart, PT 11/05/2024 10:30 AM EDT Treatment Outpatient [address] [phone] Moose Stewart, PT 11/10/2024 8:30 AM EDT Treatment Outpatient Rehabilitation - [address] [phone] Moose Stewart, PT 11/12/2024 10:30 AM EDT Treatment Outpatient Rehabilitation - [address] [phone] Moose Stewart, PT 12/11/2024 12:30 PM EDT Office Visit Adult Medicine [facility] - [address] [phone] Michelle Guzman MD [address] [place], [place] 01/06/2025 11:30 AM EDT Office Visit Orthopedic Surgery - [place] [phone] [phone] Uriel Tomlin MD [address] [address] Health Maintenance Due Date Last Done Comments [...] 06/17/2022 Colorectal Cancer Screening: Colonoscopy 09/08/2023 09/08/2013 COVID-19 Vaccine ( season) 2024 05/22/2024, 05/04/2023, 07/25/2021, Additional history exists Social Influencers of Health Screening 06/21/2025 06/21/2024 Depression Screening 09/28/2025 09/28/2024 Falls Risk Assessment 10/08/2025 10/08/2024 Cholesterol Screening (Lipid Panel) 02/13/2028 02/12/2023 DTaP,Tdap,and Td Vaccines (3 - Td or Tdap) 08/10/2031 08/10/2021, 04/03/2011 Hepatitis C Screening Completed 03/18/2019 Influenza Vaccine Completed 05/22/2024, , 07/06/2022, Additional history exists RSV Immunization Adult Patients Completed 05/22/2024 HIB Vaccines Aged Out No [...] age to complete this topic Meningococcal B Vaccine Aged Out No l onger eligible based on patient's age to complete this topic RSV Immunization Patients Under 20 months Aged Out No longer eligible based on patient's age to complete this topic Varicella Vaccines Aged Out No longer eligible based on patient's age to complete this topic Goals Goal Patient Goal Type Associated Problems Recent Progress Patient-Stated? Author STG's 6 visits General Yes Moose Stewart, PT Note: Pt will demonstrate active R knee flexion to 115 degrees or better for reciprocal stair negotiation. Pt will demonstrate normal gait pattern w/ LAD on indoor surfaces and walk at liberty. Pt is Independent and compliant with initial HEP. Pt will report R knee pain of no more than 3/10 on VAS during weight bearing activities. Pt will return to driving short distances for medical appts. LTG's 12 visits General Yes Moose Stewart, PT Note: Pt will demonstrate active R knee flexion to 135 degrees or better for reciprocal stair negotiation. Pt will demonstrate normal gait pattern w/ or w/out LAD on all surfaces and walk at liberty. Pt is Independent and compliant with final HEP. Pt will report R knee pain of no more than 1/10 on VAS during weight bearing activities. Pt will return to driving at liberty. Medical Devices Implanted Type Area Asset Coordinator Device Identifier Shelf Expiration Date Model / Serial / Lot [employer]ort Bone Graft Delivery Knee Kit - Sn/A - [id number] Implanted:Qty: 1 on 10/08/2024 by Uriel Tomlin MD at [facility] [employer] Bone Right: Knee GENNY BIOMET [id number] / N/A / [id number] Procedures Procedure Name Priority Date/Time Associated Diagnosis Comments XR KNEE 1-2 VIEWS RIGHT Routine 10/23/2024 11:29 AM EDT Post-operative state XR KNEE 1-2 VIEWS RIGHT Routine 10/08/2024 8:29 AM EDT TH AN LMA(NO CHARGE) Routine 10/08/2024 7:52 AM EDT AL ARTHROSCOPY KNEE SURGICAL DEBRIDEMENT/SHAVING ARTICULAR CARTILAGE 10/08/2024 7:31 AM EDT Acute lateral meniscus tear of right knee, subsequent encounter Stress fracture of right tibia with delayed healing, subsequent encounter Case Notes C-ARM LEFT SIDE OF PATIENT, VALGUS LEG POSITIONER, RADIOLUCENT TRIANGLE,S UBCHONDROPLASTY PROCEDURE, GENNY/BIOMET REP AL ARTHROSCOPY KNEE SURGICAL SYNOVECTOMY LIMITED (SEPARATE PROCEDURE) 10/08/2024 7:31 AM EDT Acute lateral meniscus tear of right knee, subsequent encounter Stress fracture of right tibia with delayed healing, subsequent encounter Case Notes C-ARM LEFT SIDE OF PATIENT, VALGUS LEG POSITIONER, RADIOLUCENT TRIANGLE,S UBCHONDROPLASTY PROCEDURE, GENNY/BIOMET REP AL ARTHROSCOPICALLY AIDED TX TIBIAL FX PRX UNICONDYLAR INCL INTERNAL FIXN 10/08/2024 7:31 AM EDT Acute lateral meniscus tear of right knee, subsequent encounter Stress fracture of right tibia with delayed healing, subsequent encounter Case Notes C-ARM LEFT SIDE OF PATIENT, VALGUS LEG POSITIONER, RADIOLUCENT TRIANGLE,S UBCHONDROPLASTY PROCEDURE, GENNY/BIOMET REP AL ARTHROSCOPY KNEE SURG W/ MENISCECTOMY INCL DEBR/SHVI ARTC CARTILAGE 10/08/2024 7:31 AM EDT Acute lateral meniscus tear of right knee, subsequent encounter Stress fracture of right tibia with delayed healing, subsequent encounter Case Notes C-ARM LEFT SIDE OF PATIENT, VALGUS LEG POSITIONER, RADIOLUCENT TRIANGLE,S UBCHONDROPLASTY PROCEDURE, GENNY/BIOMET REP TH AN NERVE BLOCK ADDUCTOR CANAL (NO CHARGE) Routine 10/08/2024 7:15 AM EDT TH AN NERVE BLOCK ADDUCTOR CANAL (CHARGE) Routine 10/08/2024 7:15 AM EDT ECG 12-LEAD TRACING ONLY Routine 09/28/2024 10:51 AM EDT Pre-op exam CBC WITH AUTO DIFFERENTIAL Routine 09/28/2024 10:41 AM EDT Pre-op exam CBC AND DIFFERENTIAL Routine 09/28/2024 10:41 AM EDT Pre-op exam COMPREHENSIVE METABOLIC PANEL Routine 09/28/2024 10:41 AM EDT Pre-op exam THYROID STIMULATING HORMONE WITH REFLEX TO FREE T4 AND FREE T3 Routine 09/28/2024 10:41 AM EDT Hypothyroidism, unspecified type LIPID PANEL Routine 02/12/2023 HEPATITIS C SCREENING Routine 03/18/2019 COLONOSCOPY Routine 09/08/2013 from Last 3 Months or Most Recently Relevant to Health Maintenance Results * XR Knee 1-2 Views Right (10/23/2024 11:29 AM EDT) Only the most recent of2 resultswithin the time period is included. Anatomical Region Laterality Modality Lower Extremities, Knee Right Computed Radiography Narrative 10/23/2024 11:52 AM EDT Date of Visit: 10/23/2024 Reason for visit: ?? Right knee post-op Views: AP and Lateral right knee Comparison: 05/01/24 ?? Findings: Joint space of the medial compartments maintained. ?? Joint space of the lateral compartments maintained. Radiopaque substance noted lateral proximal tibial plateau as expected post-op. No fractures. ??No bony lesions identified. Impression: Appropriate postop changes as noted above. No acute osseous pathology noted Right ??knee Read by: Candi MUNGUIAC us Candi WEST IMG XR PROCEDURES Final Resul t * TH AN LMA(NO CHARGE) (10/08/2024 7:52 AM EDT) Jesse German SRNA - 10/08/2024 7:52 AM EDT LILLIE Pinto ? 10/08/2024 ??7:52 AM General Information and Staff Patient location during procedure: OR Anesthesiologist: Renato Peña MD Other anesthesia staff: LILLIE Pinto Performed: other anesthesia staff Performed by: LILLIE Pinto Authorized by: Renato Peña MD ?? Intubation Urgency: elective Final Airway Details Number of attempts at approach: 1 Number of other approaches attempted: 0Final airway type: LMA Indications and Patient Condition Indications for airway management: anesthesia Spontaneous ventilation: present Sedation level: Yes Preoxygenated: yes Soft Tissue Damage: No Dentition Unchanged: Yes Patient position: sniffing Mask difficulty assessment: 0 - not attempted us Renato Peña MD ANESTHESIA ORDERABLES Final Re sult * TH AN NERVE BLOCK ADDUCTOR CANAL (CHARGE), TH AN NERVE BLOCK ADDUCTOR CANAL (NO CHARGE) (57:15 AM EDT) Renato Jarrell MD - 10/08/2024 7:15 AM EDT Renato Peña MD ? 10/20/2024 10:26 AM Peripheral Block Patient location during procedure: holding area Start time: 10/08/2024 7:15 AM End time: 10/08/2024 7:23 AM Reason for block: at surgeon's request Staffing Performed: anesthesiologist and resident/EMPLOYEE SERVICES MANAGER/CAA Anesthesiologist: Renato Peña MD Resident/EMPLOYEE SERVICES MANAGER: LILLIE Pinto Preanesthetic Checklist Completed: patient identified, IV checked, site marked, risks and benefits discussed, surgical consent, monitors and equipment checked, pre-op evaluation and timeout performed Peripheral Block Patient position: sitting (30 degrees) Prep: ChloraPrep Patient monitoring: heart rate, youth nutritional monitor and continuous pulse ox Block type: adductor canal block Laterality: right Injection technique: single-shot Guidance: ultrasound guided Needle Needle type: short-bevel Needle gauge: 20 G Needle length: 9 cm Needle localization: ultrasound guidance Medications Administered bupivacaine PF (MARCAINE) injection 0.5% - epidural 30 mL - 10/08/2024 7:23:00 AM dexamethasone (PF) (DECADRON) injection 10 mg/mL - intravenous 10 mg - 10/08/2024 7:23:00 AM Assessment Injection assessment: negative aspiration for heme, no paresthesia on injection and local visualized surrounding nerve on ultrasound Paresthesia pain: none Heart rate change: no Slow fractionated injection: yes Additional Notes Block placed for post-operative pain management Renato Peña MD ANESTHESIA ORDERABLES Edited R esult - Final * ECG 12 lead Tracing Only (09/28/2024 10:51 AM EDT) Madhav Boyer MD ECG ORDERABLES Final Result * Thyroid stimulating hormone with reflex to free t4 and free t3 (09/28/2024 10:41 AM EDT) [facility] TSH 2.88 0.40 - 4.00 mcIU/mL LAB CHEMISTRY METHOD 09/28/2024 2:38 PM EDT [facility] Blood Venous blood specimen / Unknown Venipuncture / Unknown 09/28/2024 10:41 AM EDT 09/28/2024 10:41 AM EDT Madhav Boyer MD LAB BLOOD ORDERABLES F inal Result [facility] [address] [place] [address], [place] [phone] * (ABNORMAL) CBC auto differential (09/28/2024 10:41 AM EDT) [facility] WBC 4.2(L) 4.8 - 10.8 K/[facility] LAB HEMETOLOGY METHOD 09/28/2024 1:14 PM EDT [facility] RBC 4.80 3.80 - 4.80 M/mcL LAB HEMETOLOGY METHOD 09/28/2024 1:14 PM EDT [facility] Hemoglobin 14.0 11.5 - 16.0 g/dL LAB HEMETOLOGY METHOD 09/28/2024 1:14 PM [facility] Hematocrit 43.0 35.0 - 47.0 % LAB HEMETOLOGY METHOD 09/28/2024 1:14 PM [facility] MCV 89.2 79.0 - 98.0 FL LAB HEMETOLOGY METHOD 09/28/2024 1:14 PM [facility] MCH 29.0 27.0 - 32.0 pcg LAB HEMETOLOGY METHOD 09/28/2024 1:14 PM [facility] MCHC 32.6 32.0 - 37.0 g/dL LAB HEMETOLOGY METHOD 09/28/2024 1:14 PM [facility] RDW 14.4 11.0 - 15.0 % LAB HEMETOLOGY METHOD 09/28/2024 1:14 PM [facility] Platelets 146 130 - 400 K/mcL LAB HEMETOLOGY METHOD 09/28/2024 1:14 PM [facility] MPV 11.2(H) 7.0 - 11.0 FL LAB HEMETOLOGY METHOD 09/28/2024 1:14 PM [facility] NRBC 0.0 <1.0 % LAB HEMETOLOGY METHOD 09/28/2024 1:14 PM [facility] NRBC Absolute 0.00 <0.10 K/mcL LAB HEMETOLOGY METHOD 09/28/2024 1:14 PM [facility] Neutrophils Relative 70.9 % LAB HEMETOLOGY METHOD 09/28/2024 1:14 PM [facility] Lymphocytes Relative 20.9 % LAB HEMETOLOGY METHOD 09/28/2024 1:14 PM EDT [facility] Monocytes Relative 7.5 % LAB HEMETOLOGY METHOD 09/28/2024 1:14 PM EDT [facility] Eosinophils Relative 0.0 % LAB HEMETOLOGY METHOD 09/28/2024 1:14 PM [facility] Basophils Relative 0.2 % LAB HEMETOLOGY METHOD 09/28/2024 1:14 PM [facility] Immature Granulocytes Relative 0.5 % LAB HEMETOLOGY METHOD 09/28/2024 1:14 PM [facility] Neutrophils Absolute 2.95 1.50 - 7.00 K/mcL LAB HEMETOLOGY METHOD 09/28/2024 1:14 PM [facility] Lymphocytes Absolute 0.87(L) 1.00 - 5.00 K/mcL LAB HEMETOLOGY METHOD 09/28/2024 1:14 PM [facility] Monocytes Absolute 0.31 0.20 - 1.00 K/mcL LAB HEMETOLOGY METHOD 09/28/2024 1:14 PM [facility] Eosinophils Absolute 0.00 0.00 - 0.50 K/mcL LAB HEMETOLOGY METHOD 09/28/2024 1:14 PM [facility] Basophils Absolute 0.01 0.00 - 0.20 K/mcL LAB HEMETOLOGY METHOD 09/28/2024 1:14 PM [facility] Immature Granulocytes Absolute 0.02 0.00 - 0.03 K/mcL LAB HEMETOLOGY METHOD 09/28/2024 1:14 PM [facility] Blood Venous blood specimen / Unknown Venipuncture / Unknown 09/28/2024 10:41 AM EDT 09/28/2024 10:41 AM EDT us Madhav Boyer MD LAB BLOOD ORDERABLES F inal Result [facility] [address] [place] [address], * (ABNORMAL) Comprehensive metabolic panel (09/28/2024 10:41 AM EDT) Sodium 144 133 - 145 mmol/L LAB CHEMISTRY METHOD 09/28/2024 2:32 PM EDT [facility] Potassium 4.0 3.5 - 5.5 mmol/L LAB CHEMISTRY METHOD 09/28/2024 2:32 PM EDT [facility] Chloride 111(H) 96 - 110 mmol/L LAB CHE[facility]STRY [facility]/28[facility]24 [facility] CO[facility] 23 21 - 32 mmol/L LAB CHEMISTRY METHOD 09/28[facility]2024 2:[facility] Anion Gap 10 3 - 11 LAB CHEMISTRY METHOD 09/28/2024 2:32 PM EDT [facility] Glucose 96 70 - 100 mg/dL LAB CHEMISTRY METHOD 09/28/2024 2:[facility] BUN 14 5 - 25 mg/dL LAB CHEMISTRY METHOD 09/28/2024 2:32 PM T [facility] Creatinine 0.81 0.50 - 1.10 mg/dL LAB CHEMISTRY METHOD 09/28/2024 2:32 PM EDT [facility] eGFR 81 >=60 mL/min/1. 73m2 LAB CHEMISTRY METHOD 09/28/2024 2:32 PM EDT [facility] Comment:Calculation based on the??Chronic Kidney Disease Epidemiology Collaboration (CKD-EPI) equation refit??without adjustment for race. BUN/Creatinine Ratio 17.3 LAB CHEMISTRY METHOD 09/28/2024 2:32 PM T [facility] Calcium 9.7 8.5 - 10.5 mg/dL LAB CHEMISTRY METHOD 09/28/2024 2[facility] AST (SGOT) 20 10 - 42 unit/L LAB CHEMISTRY METHOD 09/28/2024 2:32 PM EDT [facility] ALT (SGPT) 20 10 - 60 unit/L LAB CHEMISTRY METHOD 09/28/2024 2:32 PM EDT [facility] Alkaline Phosphatase 112 42 - 121 unit/L LAB CHEMISTRY METHOD 09/28/2024 2:32 PM EDT [facility] Total Protein 6.9 6.0 - 8.0 g/dL LAB CHEMISTRY METHOD 09/28/2024 2:32 PM EDT [facility] Albumin 4.1 3.2 - 5.0 g/dL LAB CHEMISTRY METHOD 09/28/2024 2:32 PM EDT [facility] Total Bilirubin 0.8 0.0 - 1.4 mg/dL LAB CHEMISTRY METHOD 09/28/2024 2:32 PM EDT [facility] Blood Venous blood specimen / Unknown Venipuncture / Unknown 09/28/2024 10:41 AM EDT 09/28/2024 10:41 AM EDT Madhav Boyer MD LAB BLOOD ORDERABLES F inal Result [facility] [address] [place] [address], * (ABNORMAL) Lipid panel (02/12/2023) LDL/HDL Ratio 3 0 - 4 Triglycerides 136 0 - 150 mg/dL Cholesterol 196 0 - 200 mg/dL HDL 63 >=40 mg/dL LDL Cholesterol 106(A) 0 - 100 mg/dL Blood Venous blood specimen / Unknown [facility] Provider LAB BLOOD ORDERABLES Milly l Result * Hepatitis C Screening (03/18/2019) Pathologist [facility] Hepatitis C Screening Abstracted us Historical Provider HEALTH MAINTENANCE Final Result * Colonoscopy (09/08/2013) Colonoscopy No Interpretation , Abstracted Anatomical Region Laterality Modality Other Historical Provider HEALTH MAINTENANCE Final Result from Last 3 Months or Most Recently Relevant to Health Maintenance Insurance MEDICARE MEDICAID - [place] Advance Directives * Full Code - Default (Latest Code Status on File) Date Activated Date Inactivated Comments 10/08/2024 6:07 AM 10/08/2024 2:59 PM This is orde r is used when code status has not been discussed with the patient, or code status is otherwise unknown/unconfirmed To update the patient's code status, place a code status order. Do not modify or discontinue any currently active code status orders. Care Teams Labor Economics Teacher Relationship Specialty Start Date End Date Michelle Guzman MD [address] [place] [address] [phone] PCP - General Internal Medicine 02/19/22
--- OUTSIDE RECORDS SUMMARY | 2024-10-26 08:07 | XMS_ITS ---
Author Organization [facility] Address [address] [place] [address] Care Team Providers Care Staffing Executive Name Role Phone Michelle Jerez M.D. Primary Care Provider Unavailable Blayne Jones Unavailable [phone] Allergies Allergen (clinical drug ingredient) Drug/Non Drug [...] 05/19/2024 Encounters Encounter Location Date Provider Diagnosis [facility] [address] [place] [address] 05/19/2024 Blayne Jones Encounter for screen ing [...] Next Appt Details Follow Up: prn, Reason: Progress Notes * TONEY MAEEDOB:[birth year] (64 yo F)Acc No.[id number]:05/19/2024 Progress Notes Patient:?AILYN MAE Provider:?Blayne Jones MD :1960???Age:64 Y???Sex:Female D ate:05/19/2024 Address:[address] [place], [place] [id number] Pcp:Codey Oviedo Subjective: * Chief Complaints: * [...] Protonix. She is now also using one vyui-trf-fvypmql omeprazole in the evening with further relief [...] * Medical History:? * Surgical History:?TAMIR guadarrama CY ataracts * Hospitalization/Major Diagno stic Procedure:?No Hospitalization [...] Procedure Codes:?3017F COLOR ECTAL CA SCREEN DOC [id number] TOBACCO [id number] BP SCR NOT PRFRM REC REASON NOS [...] MD Date:? 024 Generated for Juan Francisco leslie/Swathi/Rasheeditting on:?10/26/2024 08:07 AM EDT History and Physical Notes * HPI (History of Present Illness) Category Sub-Category Detail Notes Category Not es incontinence I saw Ailyn in consultation today in regard to further evaluation of her gastroesophageal reflux, intermittent dysphagia, personal history of colon polyps, and need for colorectal cancer screening. I last saw Ailyn in 2019, at which time she underwent a screening colonoscopy with removal of a small tubular adenoma. She presently feels well in general. She describes her bowel movements are fairly regular and she has not noticed any hematochezia nor melena. She has been having some increasing reflux despite being on her daily Protonix. She is now also using one nuif-ure-jrzgcjb omeprazole in the evening with further relief [...]
--- OUTSIDE RECORDS SUMMARY | 2024-10-26 08:07 | XMS_ITS | Encounter Summary ---
Author Organization [facility] [address] Address [address] [place] [address] Care Team Providers Care Records Analyst Name Role Phone Michelle Guzman MD Primary Care Prov ider Reason for Visit * Reason Comments Post-op Encounter Details Date Type Department Care Team (Latest Contact Info) Description 10/23/2024 11:30 AM EDT Office Visit Orthopedic Surgery - [place] 160 175 [facility] 160 [place] [address] Candi Matthews PA 175 [facility] 160 [place] [address] S/P arthroscopic partial lateral meniscectomy (Primary Dx); Stress fracture of right tibia with delayed healing, subsequent encounter; Post-operative state Social History Tobacco Use Types Packs/Day Years [...] for your loved ones. For example, child guidance counselor or elderly care for an older adult? [...] Orientation Straight 10/08/2024 5: 59 AM EDT documented as of this encounter Ordered Prescriptions Prescription Sig Dispense Quantity Refills Last Filled Start Date End Date cefadroxil 500 mg capsule Take 1 capsule (500 mg total) by mouth 2 (two) times a day for 7 days. 14 capsule 10/23/2024 documented in this encounter Progress Notes * BRETT Keller - 10/23/2024 11:30 AM EDT Patient: Ailyn Gill : 1960 Date: 10/23/2024 Chief Complaint: Chief Complaint Patient presents with Right Knee - Post-op HPI: Pt presents for 2 week follow up after procedure noted below. DOS: 10/08/24 Surgeon: Dr Uriel Tomlin Procedure: 1. Right knee arthroscopy with PLM (10%); Chondroplasty Lateral Femoral condyle and small lesion Medial femoral condyle; Plica resection; 2. Percutaneous injection proximal lateral tibia with calcium phosphate bone substitute Rehab: Knee arthroscopy protocol Patient is doing well so far. Post operatively patient had Bruising noted to chin and inner lip. Improving with time Post -op pain level: 5-6/10; worse at the end of the day. Ambulating with assistive device - cane at times DVTp: Aspirin 325 mg daily x 3 weeks Patient reports postoperative pain is well controlled with current regime: . Tylenol: 1000 mg TID -no longer using NSAID: Ibuprofen 600 mg TID taking regularly Narcotic: Oxycodone 2.5 mg PRN prior to PT. Educated that there will be no refills The patient denies any body aches, fever, chills, drainage from incision site. PT: Leticia PT attending Force: faithful Work / School note: back to work - no issues Allergies: Allergies Allergen Reactions Hydroxyzine Hcl Anaphylaxis Meperidine Hcl Anaphylaxis Pentobarbital Sodium Anaphylaxis Bupropion Hives Codeine Flushing, facial redness, diaphoresis Penicillins Other Reaction(s): Hives/Urticaria Cat Dander Mold Medications: Current Outpatient Medications Medication Instructions acetaminophen (TYLENOL) 1,000 mg, oral, Every 8 hours PRN albuterol 2.5 mg /3 mL (0.083 %) nebulizer solution 2-4x daily albuterol HFA (PROAIR HFA ; PROVENTIL HFA ; VENTOLIN HFA) 90 mcg/actuation inhaler Every 6 hours PRN aspirin 325 mg, oral, Daily benralizumab (FASENRA SUBQ) Inject under the skin. cefadroxil 500 mg, oral, 2 times daily cetirizine (ZyrTEC) 10 mg tablet 1 tablet, Daily cromolyn (OPTICROM) 4 % ophthalmic solution 1 drop, 4 times daily fluticasone propionate (FLONASE) 100 mcg, Daily ibuprofen (ADVIL,MOTRIN) 600 mg, oral, Every 8 hours PRN levothyroxine (SYNTHROID, LEVOTHROID) 75 mcg, oral, Daily LORazepam (ATIVAN) 0.5 mg, oral, Daily PRN medical supply, miscellaneous (MISCELLANEOUS MEDICAL SUPPLY MIS) Spacer/Aero- Holding Chambers (BREATHERITE RICARDO SPACER ADULT) MISC 1 Device by Does not apply route as needed. use w Symbicort ondansetron ODT (ZOFRAN-ODT) 8 mg, translingual, Every 8 hours PRN oxyCODONE (ROXICODONE) 5-10 mg, oral, Every 4 hours PRN pantoprazole (PROTONIX) 40 mg, oral, Daily senna-docusate (PERICOLACE) 8.6-50 mg per tablet 2 tablets, oral, Nightly sertraline (ZOLOFT) 150 mg, oral, Daily Physical Exam: There were no vitals filed for this visit. There is no height or weight on file to calculate BMI. APPEARANCE: Alert and in no acute distress SKIN: Bilateral lower extremities skin color, texture, turgor normal. LOWER EXTREMITIES: Warm and well perfused. RightKnee: Surgical incisions: clean and intact with mild erythema and swelling which is tender to palpation around the lateral portal. Slight maceration noted at incisional edges. No active drainage to manual expression. Incision well healed. Sutures removed today. Palpation: Moderate tenderness to light palpation in incisional region laterally and lateral knee region as expected, otherwise non tender Generalized Knee swelling: mild Effusion: positive fluid wave mild quad atrophy ROM: 0-120 Extension Lag: none Images: XR Knee 1-2 Views Right Date of Visit: 10/23/2024 Reason for visit: Right knee post-op Views: AP and Lateral right knee Comparison: 05/01/24 Findings: Joint space of the medial compartments maintained. Joint space of the lateral compartments maintained. Radiopaque substance noted lateral proximal tibial plateau as expected post-op. No fractures. No bony lesions identified. Impression: Appropriate postop changes as noted above. No acute osseous pathology noted Right knee Read by: Candi Matthews PA-C Assessment and Plan: 1. S/P arthroscopic partial lateral meniscectomy 2. Stress fracture of right tibia with delayed healing, subsequent encounter 3. Post-operative state The nature of the surgical procedure with pictures were reviewed with the patient and questions were answered to the best of my abilities. Mild cellulitis lateral partal site. - Will treat with Cefadroxil 500 mg BID x 7 days. - ordered Pain management: DVTp: ASA 325 mg daily. Continue and complete 3 week course Continue Ice/Cryo cuff. Continue tylenol PRN; NSAID: Ibuprofen 600 continue as needed Narcotic Oxycodone - Discontinue PT: PT visits - continue rehab protocol Force application exercises compliant. Weight bearing; Full weightbearing as tolerated. Wean from cane as per PT - No longer limping Activity: Slowly progress activities as tolerated as per PT Follow up: [address] Tomlin. Patient educated follow-up sooner for worsening pain or any other concerns. Patient verbalized understanding and agreement with plan denies any questions or concerns this time. Patient will call if lateral incisional site gets worse. Orders Placed This Encounter cefadroxil 500 mg capsule Follow up in about 7 weeks (around 12/08/2024) for Post-Op, Right, Knee, with Dr Tomlin sp stress fx. Future appointments: 01/06/2025 Today's documentation was made using voice recognition software.This note may contain grammatical errors secondary to this software. BRETT Keller documented in this encounter Plan of Treatment Upcoming Encounters Date Type Department Care Team (Late st Contact Info) Description 10/27/2024 8:30 AM EDT Treatment Outpatient Rehabilitation - [address] [phone] Moose Stewart, PT 10/29/2024 10:30 AM EDT Treatment Outpatient Rehabilitation - [address] [phone] Moose Stewart, PT 11/03/2024 8:30 AM EDT Treatment Outpatient Rehabilitation - [address] [phone] Moose Stewart, PT 11/05/2024 10:30 AM EDT Treatment Outpatient Rehabilitation - [address] [phone] Moose Stewart, PT 11/10/2024 8:30 AM EDT Treatment Outpatient Rehabilitation - [address] [phone] Moose Stewart, PT 11/12/2024 10:30 AM EDT Treatment Outpatient Rehabilitation - [address] [phone] Moose Stewart, PT 12/11/2024 12:30 PM EDT Office Visit Adult Medicine [facility] - [address] [phone] Michelle Guzman MD [address] [place] [address] 01/06/2025 11:30 AM EDT Office Visit Orthopedic Surgery - [place] [address] [phone] Uriel Tomlin MD [address] [phone] documented as of this encounter Goals Goal Patient Goal Type Associated Problems Recent Progress Patient-Stated? Author STG's 6 visits General Yes Moose Stewart PT Note: Pt will demonstrate active R [...] appts. LTG's 12 visits General Yes Moose Stewart PT Note: Pt will demonstrate active R [...] Pt will return to driving at liberty. documented as of this encounter Visit Diagnoses Diagnosis S/P arthroscopic partial lateral meniscectomy- Primary Other postprocedural status Stress fracture of right tibia with delayed healing, subsequent encounter Post-operative state Other postprocedural status documented in this encounter Additional Health Concerns Assessment Noted Time PHQ-9 Depression Total Score: 16 /31/08 025 2:00 AM EDT documented as of this encounter Care Teams Records Analyst Relationship Specialty Start Date End Date Michelle Guzman MD [address] [place] [id number] PCP - General Internal Medicine 02/19/22 documented as of this encounter
--- OUTSIDE RECORDS SUMMARY | 2024-10-26 08:07 | XMS_ITS | Encounter Summary ---
Author Organization [facility] Address [address] [place] [address] Care Team Providers Care Registration Officer Name Role Phone Michelle Guzman MD Primary Care Prov ider Encounter Details Date Type Department Care Team ([facility] st Contact Info) Description 10/09/2024 Telephone Orthopedic Surgery - [place] 175 [facility] [address] [place] [address] Lashanda Martinez Social History Tobacco Use Types Packs/Day Years [...] care for your loved ones. For example, early childhood coordinator or elderly care for an older adult? [...] AM EDT documented as of this encounter Progress Notes * Lashanda Martinez - 10/09/2024 4:06 PM EDT Good afternoon, The patient called the office this afternoon out of concern. She stated that she surgery yesterday and today she has a lot of bruising on her face. She stated that this is primarily around her mouth and chin. The patient is going to try an upload a picture of this on My Chart but stated that she would like answers as to why she is all bruised. I'm not sure if she was intubated during the surgery so I did not want to tell her this is what could have caused this. The patient is asking for a call back. -Lashanda documented in this encounter Plan of Treatment Upcoming Encounters Date Type Department Care Team (Late st Contact Info) Description 10/27/2024 8:30 AM EDT Treatment Outpatient Rehabilitation - [address] [phone] Moose Stewart, PT 10/29/2024 10:30 AM EDT Treatment Outpatient Rehabilitation - [address] [phone] Moose Stewart, PT 11/03/2024 8:30 AM EDT Treatment Outpatient [facility] - [address] [phone] Moose Stewart, PT 11/05/2024 10:30 AM EDT Treatment Outpatient [facility] - [address] [phone] Moose Stewart, PT 11/10/2024 8:30 AM EDT Treatment Outpatient [facility] - [address] [phone] Moose Stewart, PT 11/12/2024 10:30 AM EDT Treatment Outpatient [address] [phone] Moose Stewart, PT 12/11/2024 12:30 PM EDT Office Visit Adult Medicine [address] [phone] Michelle Guzman MD [address] [place] [address] 01/06/2025 11:30 AM EDT Office Visit Orthopedic Surgery - [place] [address] [phone] Uriel Tomlin MD [address] [place] [address] documented as of this encounter Goals Goal [...] documented as of this encounter Visit Diagnoses Not on filedocumented in this encounter Additional Health Concerns Assessment Noted Time PHQ-9 Depression Total Score: 16 025 2:00 AM EDT documented as of this encounter Care Teams Registration Officer Relationship Specialty Start Date End Date Michelle Guzman MD [address] [place] [phone] PCP - General Internal Medicine 02/19/22 documented as of this encounter
--- OUTSIDE RECORDS SUMMARY | 2024-10-26 08:07 | XMS_ITS ---
Author Organization [facility] Address [address] [place] [address] Care Team Providers Care Professor Of Biological Sciences Name Role Phone Michelle Jerez M.D. Primary Care Provider Unavailable Blayne Jones Unavailable [phone] REASON FOR VISIT screening,hx polyps,gerd Encounters Encounter Location Date Provider Diagnosis [facility] [address] [place], [place] [phone] 09/21/2024 Blayne Jones Colon cancer scree ryley Z12.11 ; Gastro-esophageal reflux disease without esophagitis K21.9 and Hiatal hernia K44.9 Assessments Encounter Date Diagnosis (ICD Code) Assessment Notes Treatment Notes Treatment Clinical Notes Section Notes 09/21/2024 Colon cancer screening (ICD-10 - Z12.11) 09/21/2024 Gastro-esophagea l reflux disease without esophagitis (ICD-10 - K21.9) 09/21/2024 Hiatal hernia (ICD-10 - K44.9) Plan Of Treatment No Information Progress Notes * KEMAR MAEOB:[birth year] (64 yo F)Acc No.[id number]:09/21/2024 EGD and COL/MAC Patient:?ANTWAN MAE Provider:?Blayne Jones MD :1960???Age:64 Y???Sex:Female D ate:09/21/2024 Address:[address] [place], [place] [id number] Pcp:Codey Oviedo Subjective: * Chief Complaints: * ???1. Screening,hx polyps,ge rd. * Medical History:? Objective: * Vitals:? Assessment: * Assessment: 1.?Colon cancer screening - Z12.11 (Primary)???2.?Gastro-esophageal reflux disease without esophagitis - K21.9???3.?Hiatal hernia - K44.9??? Plan: * Treatment: * Procedure Codes:?G0105 COLOR EC CANCR SCR; COLNSCPY HI RISK, 0529F INTRVL 3+YRS PTS CLNSCP DOCD, 0528F RCMND FLW-UP 10 YRS DOCD, [address] ESOPH ENDOSCOPY, DILATION * * The named appointment provid er may or may not be the originator of this progress note, and it is not deemed complete until electronically signed by the appointment provider. Sign off status: Pending * Provider:?Blayne Jones MD Date:? 025 Generated for Juan Francisco leslie/Swathi/Wadesmitting on:?10/26/2024 08:07 AM EDT
--- OUTSIDE RECORDS SUMMARY | 2024-10-26 08:07 | XMS_ITS ---
Author Organization [facility] Address [address] [place] [address] Care Team Providers Care Diamond Die Driller Name Role Phone Michelle Jerez M.D. Primary Care Provider Unavailable Blayne Jones Unavailable [phone] REASON FOR VISIT Needs Barium swallow Problems Problem Type SNOMED Code ICD Code Onset Dates Problem Status W/U Status Risk Notes Problem Dysphagia (57238785) Dysphagia (R13.10) Active confirmed Encounters Encounter Location Date Provider Diagnosis [facility] [address] [place] [address] 09/27/2024 Blayne Jones Dysphagia R13.10 and Hiatal hernia K44.9 Assessments Encounter Date Diagnosis (ICD Code) Assessment Notes Treatment Notes Treatment Clinical Notes Section Notes 09/27/2024 Dysphagia (ICD-10 - R13.10) Hiatal hernia on recent upper endo, R/O paraesophageal hernia 09/27/2024 Hiatal hernia (ICD-10 - K44.9) Hiatal hernia on recent upper endo, R/O paraesophageal hernia Plan Of Treatment Treatment Notes Assessment Notes Dysphagia Hiatal hernia on rec ent upper endo, R/O paraesophageal hernia Hiatal hernia Hiatal hernia on rec ent upper endo, R/O paraesophageal hernia Pending Test Test Name Order Date XR BARIUM SWALLOW-ESOPHAGUS 09/27/2024 Progress Notes * KEMAR MAEOB:[birth year] (64 yo F)Acc No.[id number]:09/27/2024 Patient:?CARMELITADEVORAANTWAN :1960???Age:64 Y???Sex:Female Address:[address] [place] [address] Subjective: * Chief Complaints: * ???Needs Barium swallow * Medical History:? * Surgical History:? * Hospitalization/Major Diagno stic Procedure:? * Medications:? Objective: * Vitals:? * Physical Examination:? Assessment: * Assessment: 1.?Dysphagia - R13.10 (Prima ry)???2.?Hiatal hernia - K44.9??? Plan: * Treatment: * Notes: Hiatal hernia on recent upper endo, R/O paraesophageal hernia??2.?Hiatal hernia?Imaging: XR BARIUM SWALLOW-ESOPHAGUS* sched for 10/26/24 at 8:00 am [facility] 2nd [place] fasting 8 hrs prior * Notes: Hiatal hernia on recent upper endo, R/O paraesophageal hernia?? * Procedure Codes:? * true * Date:? Generated for Juan Francisco leslie/Swathi/eTgiovannasmitting on:?10/26/2024 08:07 AM EDT
--- OUTSIDE RECORDS SUMMARY | 2024-10-26 08:07 | XMS_ITS | Patient Health Record ---
Author Organization [facility] Address [address] [place] [address] Care Team Providers Care Skiver Heel Tap Name Role Phone Michelle Jerez M.D. Primary Care Provider Unavailable Blayne Jones Unavailable [phone] Allergies Allergen (clinical drug ingredient) Drug/Non Drug [...] Problem Status W/U Status Risk Notes Problem 25253979 Epigastric pain (R10.13) Active confirmed Problem 529723948 Encounter for screening for malignant neoplasm of colon (Z12.11) Active confirmed Problem History of adenomatous polyp of colon (792351560) History of adenomatous polyp of colon (Z86.010) Active confirmed Problem 80608534 Irritable bowel syndrome without diarrhea (K58.9) Active confirmed Problem Dysphagia (35880012) Dysphagia (R13.10) Active confirmed Problem 161123629 Gastroesophageal reflux disease without esophagitis (K21.9) Active confirmed Problem 176432108 History of colon polyps (Z86.010) Active confirmed Problem 387931847 NSAID long-term use (Z79.1) Active confirmed Problem 00062172 Irritable bowel syndrome, unspecified type (K58.9) Active confirmed Vital Signs Blood pressure diastolic 00 mm Hg 05/19/2024 Height 60 in 05/19/2024 Blood pressure systolic 00 mm Hg 05/19/2024 Weight 121 lbs 05/19/2024 BMI 23.63 kg/m2 05/19/2024 Encounters Encounter Location Date Provider Diagnosis [facility] [address] [place], [place] [phone] 09/21/2024 Blayne Jones Colon cancer screeni ng Z12.11 ; Gastro-esophageal reflux disease without esophagitis K21.9 and Hiatal hernia K44.9 [facility] [address] [place] [address] 05/19/2024 Blayne Jones Encounter for screen ing for malignant neoplasm of colon Z12.11 ; Gastroesophageal reflux disease without esophagitis K21.9 and History of adenomatous polyp of colon Z86.010 [facility] [address] [place] [address] 09/27/2024 Blayne Jones Dysphagia R13.10 and Hiatal hernia K44.9 Assessments Encounter Date Diagnosis (ICD Code) Assessment Notes Treatment Notes Treatment Clinical Notes Section Notes 09/21/2024 Colon cancer screening (ICD-10 - Z12.11) 09/21/2024 Gastro-esophageal reflux disease without esophagitis (ICD-10 - K21.9) 05/19/2024 Encounter for screening for malignant neoplasm [...] to keep you advised of her progress. 09/27/2024 Dysphagia (ICD-10 - R13.10) Hiatal hernia on recent upper endo, R/O paraesophageal hernia 09/21/2024 Hiatal hernia (ICD-10 - K44.9) 05/19/2024 History of adenomatous polyp of colon [...] to keep you advised of her progress. 09/27/2024 Hiatal hernia (ICD-10 - K44.9) Hiatal hernia on recent upper endo, R/O paraesophageal hernia Plan Of Treatment Pending Test Test Name Order Date NUC HIDA SCAN 05/05/2015 XR BARIUM SWALLOW-ESOPHAGUS 09/27/2024 Future Test Test Name Order Date UPPER GI ENDOSCOPY 05/05/2015 COLONOSCOPY 02/11/2019 UPPER GI ENDOSCOPY 05/19/2024 COLONOSCOPY 05/19/2024 Insurance Providers Payer Name Payer Address Payer Phone Subscriber Number Group Number Insured Name Patient Relationship to Insured Coverage Start Date Coverage End Date MEDICARE OF [place] [address] [place] [address] [id number] AILYN MAE Self - patient is the [...] celiac disease and gastritis/H.pylori-no esophagitis Hypothyroidism Denies DE,DM,CVA,renal disease Colonoscopy in 08/2013--hyper plastic polyp, diverticulosis, internal hemorroids--neg. biopsies for microscopic colitis EGD in 06/2015--moderate-siz ed HH, no esophagitis, no Fletcher's---mild gastritis--no Hpylori Colonoscopy 05/2019 with a small tubular adenoma Surgical History Surgery Date(Month/Year) TAMIR Left shoulder 08/2022 [facility] 2022 Cataracts
--- OUTSIDE RECORDS SUMMARY | 2024-10-26 08:07 | XMS_ITS | Encounter Summary ---
Author Organization [facility] Address [address] [place] [address] Care Team Providers Care Financial Services Specialist Name Role Phone Michelle Guzman MD Primary Care Prov ider Reason for Visit * Consultation (Routine) - Authorized Specialty Diagnoses / Procedures Referred By Chai mitchell Referred To Contact Physical Therapy Diagnoses Acute lateral meniscus tear of right knee, subsequent encounter Stress fracture of right tibia with delayed healing, subsequent encounter Uriel Tomlin MD [address] [place] [address] Phone: tel: fax: Referral ID Status Reason Start Date Expiration Date Visits Requested Visits Authorized [id number] Authorized Specialty Services Required 06/26/2025 13 13 Encounter Details Date Type Department Care Team ([facility] Contact Info) Description 10/22/2024 12:00 PM EDT Treatment Outpatient Rehabilitation [address] [phone] Moose Setwart, PT Acute lateral meniscus tear of right knee, subsequent encounter (Primary Dx) Social History Tobacco Use Types Packs/Day Years [...] for your loved ones. 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 [...] as of this encounter Progress Notes * Moose Stewart PT - 10/22/2024 12:00 PM EDT [facility] - Outpatient PHYSICAL THERAPY DAILY TREATMENT NOTE - OP Date: 10/22/2024 Visit Number: [id number] Patient Name: Ailyn Gill : 1960 Age: 64 y.o. Gender: female Diagnosis: No diagnosis found. Date of Onset/Surgery: 10/08/2024 Referring Provider: Uriel Tomlin MD Insurance: Payor: MEDICARE / Plan: MEDICARE PART A & B / Product Type: Medicare / Patient Identified by: Moose Stewart PT Language: Turkish Medications: Current Outpatient Medications on File Prior to Visit Medication Sig Dispense Refill acetaminophen (TYLENOL) 500 mg tablet Take 2 tablets (1,000 mg total) by mouth every 8 (eight) hours if needed for mild pain. 60 each 0 albuterol 2.5 mg /3 mL (0.083 %) nebulizer solution 2-4x daily albuterol HFA (PROAIR HFA ; PROVENTIL HFA ; VENTOLIN HFA) 90 mcg/actuation inhaler every 6 (six) hours if needed for wheezing. Inhale 2 Puffs into the lungs every 4 hours as needed for Cough, Wheezing or Shortness of Breath. aspirin 325 mg EC tablet Take 1 tablet (325 mg total) by mouth 1 (one) time each day for 21 days. 21 tablet 0 benralizumab (FASENRA SUBQ) Inject under the skin. cetirizine (ZyrTEC) 10 mg tablet Take 1 tablet (10 mg total) by mouth 1 (one) time each day. cromolyn (OPTICROM) 4 % ophthalmic solution Administer 1 drop into both eyes 4 (four) times a day. fluticasone propionate (FLONASE) 50 mcg/actuation nasal spray Administer 2 sprays into affected nostril(s) 1 (one) time each day. ibuprofen (ADVIL,MOTRIN) 600 mg tablet Take 1 tablet (600 mg total) by mouth every 8 (eight) hours if needed for moderate pain. 60 tablet 0 levothyroxine (SYNTHROID, LEVOTHROID) 75 mcg tablet TAKE 1 TABLET BY MOUTH EVERY DAY 90 tablet 3 LORazepam (ATIVAN) 0.5 mg tablet Take 1 tablet (0.5 mg total) by mouth 1 (one) time each day if needed for anxiety. Max Daily Amount: 0.5 mg 30 tablet 0 medical supply, miscellaneous (MISCELLANEOUS MEDICAL SUPPLY MISC) Spacer/Aero- Holding Chambers (BREATHERITE RICARDO SPACER ADULT) MISC 1 Device by Does not apply route as needed. use w Symbicort ondansetron ODT (ZOFRAN-ODT) 8 mg disintegrating tablet Dissolve 1 tablet (8 mg total) on top of the tongue every 8 (eight) hours if needed for nausea or vomiting. 20 tablet 0 oxyCODONE (ROXICODONE) 5 mg immediate release tablet Take 1-2 tablets (5-10 mg total) by mouth every 4 (four) hours if needed for severe pain. Max Daily Amount: 60 mg 20 each 0 pantoprazole (PROTONIX) 40 mg EC tablet TAKE 1 TABLET BY MOUTH EVERY DAY 90 tablet 0 senna-docusate (PERICOLACE) 8.6-50 mg per tablet Take 2 tablets by mouth at bedtime. 30 each 0 sertraline (ZOLOFT) 100 mg tablet TAKE 1 AND 1/2 TABLETS DAILY BY MOUTH 135 tablet 1 No current facility-administered medications on file prior to visit. Allergies: is allergic to hydroxyzine hcl, meperidine hcl, pentobarbital sodium, bupropion, codeine, penicillins, cat dander, and mold. Precautions: Phase 2 of surgical protocol. Fall risk: No Patient/Caregiver Goals: SUBJECTIVE Subjective Report: I'm so afraid it's going to hurt . Pt has progressed to cane. Pt reports doing Force alonso ex's as able. Chart Reviewed: Yes Pain: Pt reported pain but did not give it a number this visit. OBJECTIVE TREATMENT INTERVENTION: Procedures: Initiated stat cycle, to and fro x 5 mins. Pt supine for patellar mobs, R patella, medial and inferior glides w/ AAROM btw bouts. Pt requiringfrequent VC's to relax as able as holding her entire body very tense d/t fear. Continue w/ AA SLR w/ mod VC's to minimize extension lag. 3 sets of 10 reps. SL hip abduction w/ verbal and tactile cues to keep hip in neutral, 3 sets of 10 reps. Prone active knee bend, 3 sets of 10 reps. ASSESSMENT/Response to Treatment Good, better tolerance to treatment this visit w/ increased R kneeROM. Pt has recheck w/ orthopedics tomorrow, will await any new orders. Continue per surgical protocol. Patient Education: Education provided: Yes Education Provided To: Patient utilizing Explanation, Demonstration, and Printed Material mode(s) of education Response to Education: Verbal Understanding and Demonstrated Skills PLAN POC Development/Review: No Change in the Plan of Care; Participants: Patient Total Treatment Time: 25 Modalities: Therapeutic procedures: Documentation completed by Moose Stewart PT documented in this encounter Plan of Treatment Upcoming Encounters Date Type Department Care Team (Late st Contact Info) Description 10/27/2024 8:30 AM EDT Treatment Outpatient Rehabilitation [address] [phone] Moose Stewart, PT 10/29/2024 10:30 AM EDT Treatment Outpatient Rehabilitation - [address] [phone] Moose Stewart, PT 11/03/2024 8:30 AM EDT Treatment Outpatient [address] [phone] Moose Stewart, PT 11/05/2024 10:30 AM EDT Treatment Outpatient [address] [phone] Moose Stewart, PT 11/10/2024 8:30 AM EDT Treatment Outpatient Rehabilitation [address] [phone] Moose Stewart, PT 11/12/2024 10:30 AM EDT Treatment Outpatient Rehabilitation [address] [phone] Moose Stewart, PT 12/11/2024 12:30 PM EDT Office Visit Adult Medicine [address] [phone] Michelle Guzman MD [address] [place] [address] 01/06/2025 11:30 AM EDT Office Visit Orthopedic Surgery - [place] [address] [facility] [address] [place] [address] Uriel Tomlin MD [address] [facility] [address] [place] [address] documented as of this encounter Goals Goal [...] as of this encounter Visit Diagnoses Diagnosis Acute lateral meniscus tear of right knee, subsequent encounter- Primary documented in this encounter Additional Health Concerns Assessment Noted Time PHQ-9 Depression Total Score: 16 09/28/ 025 2:00 AM EDT documented as of this encounter Care Teams Financial Services Specialist Relationship Specialty Start Date End Date Michelle Guzman MD [address] [place] [address] PCP - General Internal Medicine 02/19/22 documented as of this encounter
== END 2024-10-26 08:02 | disposition home or self-care (01) ==
LOC: HO.XRAY 08:01
PROVIDERS: PCP Internal Medicine; Visit Provider Internal Medicine
DX: R13.10 Dysphagia, unspecified (principal); K44.9 Diaphragmatic hernia without obstruction or gangrene
CPT/HCPCS: 74220

== ENCOUNTER → 2024-10-26 08:03 | Outpatient (BNV) | payer MEDICARE, MEDICAID, SELFPAY | PROVIDERS: PCP Internal Medicine; Visit Provider Radiology Diagnostic Radiology | DX: R13.10 Dysphagia, unspecified (principal); K44.9 Diaphragmatic hernia without obstruction or gangrene | CPT/HCPCS: 74220 ==

== ENCOUNTER → 2025-04-12 08:00 | Outpatient (BNV) | payer MEDICARE, MEDICAID, SELFPAY | PROVIDERS: PCP Internal Medicine; Visit Provider Internal Medicine | DX: Z12.31 Encounter for screening mammogram for malignant neoplasm of breast (principal) | CPT/HCPCS: 77063; 77067 ==

== ENCOUNTER 2025-04-12 08:05 | Outpatient (REF) | payer MEDICARE, MEDICAID, SELFPAY ==
--- NOTE | ~2025-04-12 | MM_ITS ---
EXAMINATION: MM SCREENING DIGITAL BREAST TOMOSYNTHESIS, BILATERAL CLINICAL INFORMATION: Screening. Asymptomatic. COMPARISON: Mammography: Comparison is made with available priors TECHNIQUE: Digital breast mammography with tomosynthesis is performed in both the craniocaudal and mediolateral oblique views along with computer-aided detection (CAD). FINDINGS: The breasts are heterogeneously dense, which may obscure small masses. There are no significant masses, abnormal calcifications, or other abnormalities. MM/MM tomosynthesis screening BI IMPRESSION: No mammographic evidence of malignancy. ASSESSMENT: BI-RADS Category 1: Negative RECOMMENDATION: Routine annual mammography screening. 1 year F/U This examination should not preclude the clinical evaluation of a suspicious palpable abnormality. This patient's information was entered into a reminder system with a target due date for their next mammogram. Electronically signed by: Renetta Vega DO 04/13/2025 02:17 PM EDT
== END 2025-04-12 08:06 | disposition home or self-care (01) ==
LOC: HO.MAMMO 08:05
PROVIDERS: PCP Internal Medicine; Visit Provider Internal Medicine
DX: Z12.31 Encounter for screening mammogram for malignant neoplasm of breast (principal)
CPT/HCPCS: 77063; 77067